=== PATIENT | female | born 1945 | race Caucasian/White ===

== ENCOUNTER 2020-05-13 17:59 | Inpatient (IN) | payer MEDICARE ==
[~2020-05-13] VITALS: Ht 162.6 cm; Wt 73.3 kg
--- NOTE | 2020-05-13 18:02 | NUR ---
Admission Note with Justification for Admission to [facility] Patient admitted to [facility] for protective oversight for emergency stabilization of acute psychiatric crisis. Pt admitted from: [facility] Mode of arrival: Secure Transport Accompanied By: Secure Transport Precipitating behaviors that initiated intake and admission: Yelling at family- agitation, feels like she's being punished. I want to everyday but no specific plan, irritable, spouse of 46 years her and moved the neighbor into the house, self care deficits, lacks initiative, decreased motivation Description of failure of out patient attempts at stabilization in previous setting list behavior and medication trials: ER, buspar, lexapro, sitter Behaviors and assessment findings upon admission: Pt was very pleasant and cooperative with assessment. She is A&Ox4. She expresses disappointment in her for cheating on her. She is also upset about her son and daughter in law for making her go to the hospital because of "an argument over letting the dogs in". Pt denies SI, stating "God will take me when it's time." She denies any physical pain and does not have any wounds. She is unsteady on her feet, requiring assistance, she said it's d/t "laying in bed at the hospital for the past few days." She is currently sitting quietly in the day room. Plan: Admit for protective oversight for adjustment and stabilization of medications, behaviors and mood. Intense treatment regimen including groups, medication adjustments, therapy, consistent regimen for ADL's, self care, and sleep hygiene. Daily monitoring by Inpatient staff, Psychiatry, and Medical Physician.
[2020-05-13 18:04] VITALS: BP 173/74
[2020-05-13] MEDS ORDERED: ACETAMINOPHEN 325 MG TABLET PO PRN (18:15)
[2020-05-13] MEDS ORDERED: METHYL SALICYLATE/MENTHOL TOPICAL OINTMENT 57GM TUBE. TP PRN (18:15)
[2020-05-13] MEDS ORDERED: MAG HYDROX/AL HYDROX/SIMETH 30 ML ORAL.SUSP PO PRN (18:15)
[2020-05-13] MEDS ORDERED: MAGNESIUM HYDROXIDE 2,400 MG/30 ML ORAL.SUSP. PO PRN (18:15)
[2020-05-13] MEDS ORDERED: ATOR40TA59 PO (18:52)
[2020-05-13] MEDS ORDERED: ESCITALOPRAM OX10 MG PO (18:52)
[2020-05-13] MEDS ORDERED: BENA20TA4 PO (18:52)
[2020-05-13] MEDS ORDERED: ZOLP5TAB5 PO (18:52)
[2020-05-13] MEDS ORDERED: LORA-254 PO (18:52)
[2020-05-13] MEDS ORDERED: BUSP10TA PO (18:52)
[2020-05-13] MEDS ORDERED: ASPI81TA59 PO (18:52)
[2020-05-13] MEDS ORDERED: LEVO88TA4 PO (18:52)
[2020-05-13] MEDS ORDERED: ENOX40DI SQ (18:52)
[2020-05-13] MEDS ORDERED: METF-550 PO (18:52)
--- NOTE | 2020-05-13 18:52 | RAD ---
Exam: CT head INDICATION: Altered mental status TECHNIQUE: Sequential axial images through the head were obtained without the administration of IV contrast. Comparisons: None FINDINGS: No focal parenchymal lesion or hemorrhage is identified. There is no midline shift or sulcal effacement. No acute vascular territory infarction is identified. Sheehan-white distinction is preserved. Patchy hypodensity in the periventricular white matter. There is a small lacunar infarct at the right basal ganglia. The ventricular system is within normal limits without compression hydrocephalus. The basal cisterns are well maintained. The visualized portions of the paranasal sinuses and mastoid air cells are well-pneumatized. No acute fractures. IMPRESSION: Small vessel ischemic change and small lacunar infarct at the right basal ganglia both of which are age indeterminate without prior imaging. If there are concerns for acute ischemia MRI would better evaluate. Exposure: One or more of the following in the visualized dose reduction techniques were utilized for this examination: 1. Automated exposure control 2. Adjustment of the MA and/or KV according to patient size Use of iterative of reconstructive technique Electronically signed by: Amirah Rai MD (05/13/2020 6:49 PM) [id number]
[2020-05-13 19:42] LABS: BASO # 0.1 x10^3/uL (0.0-0.2); BASO % 1 % (0-3); EOS # 0.3 x10^3/uL (0.0-0.7); EOS % 3 % (0-3); HEMATOCRIT 40.3 % (36.0-47.0); HEMOGLOBIN 13.4 g/dL (12.0-15.5); LYMPH # 1.2 x10^3/uL (1.0-4.8); LYMPH % 13 % (24-48); MEAN CORPUSCULAR HEMOGLOBIN 31 pg (25-35); MEAN CORPUSCULAR HGB CONC 33 g/dL (31-37); MEAN CORPUSCULAR VOLUME 92 fL (79-100); MONO # 0.4 x10^3/uL (0.0-1.1); MONO % 5 % (0-9); NEUT # 7.1 x10^3uL (1.8-7.7); NEUT % 79 % (31-73); PLATELET COUNT 223 x10^3/uL (140-400); RED BLOOD COUNT 4.39 x10^6/uL (3.50-5.40); RED CELL DISTRIBUTION WIDTH 14.1 % (11.5-14.5); WHITE BLOOD COUNT 9.1 x10^3/uL (4.0-11.0)
[2020-05-13] MEDS ORDERED: LORazepam 1 MG TABLET PO PRN (19:45)
[2020-05-13 19:55] LABS: ALBUMIN 3.2 g/dL (3.4-5.0); ALBUMIN/GLOBULIN RATIO 0.9 (1.0-1.7); CALCIUM 9.1 mg/dL (8.5-10.1); CREATININE 1.6 mg/dL (0.6-1.0); GFR 31.7; MAGNESIUM 1.6 mg/dL (1.8-2.4); POTASSIUM 4.3 mmol/L (3.5-5.1); TOTAL BILIRUBIN 0.3 mg/dL (0.2-1.0); TOTAL PROTEIN 6.7 g/dL (6.4-8.2)
[2020-05-13] MEDS: ATORVASTATIN CALCIUM 20 MG TABLET PO SCH (20:39)
[2020-05-13] MEDS: busPIRone 10 MG TABLET. PO SCH (20:40)
--- NOTE | 2020-05-13 20:58 | NUR ---
Patient has been provided with Practical Counseling for tobacco cessation. It included a face to face interaction and the following was discussed: Recognizing danger situations, Developing coping skills,Basic cessation information. Will follow for discharge needs and discharge planning.
[2020-05-13] MEDS: ZOLPIDEM 5 MG TABLET. PO PRN (22:08)
--- NOTE | 2020-05-13 22:13 | PDOC ---
Exam Note: Jorge Note: Please also refer to the separate dictated note~for this date of service dictated separately.~Patient seen individually. Discussed the patient with Nursing staff reviewed the chart.~Reviewed interim history and current functioning. Reviewed vital signs,~Labs/ Radiology~and current medications noted below. Continue current treatment with the changes noted in the dictated addendum note Assessment: Vital Signs/I&O: Vital Signs Date Time Temp Pulse Resp B/P (MAP) Pulse Ox O2 Delivery O2 Flow Rate FiO2 05/13/20 18:04 97.5 78 18 173/74 (107) 91 Room Air Labs: Laboratory Tests Test 05/13/20 19:30 White Blood Count 9.1 x10^3/uL (4.0-11.0) Red Blood Count 4.39 x10^6/uL (3.50-5.40) Hemoglobin 13.4 g/dL (12.0-15.5) Hematocrit 40.3 % (36.0-47.0) Mean Corpuscular Volume 92 fL (79-100) Mean Corpuscular Hemoglobin 31 pg (25-35) Mean Corpuscular Hemoglobin Concent 33 g/dL (31-37) Red Cell Distribution Width 14.1 % (11.5-14.5) Platelet Count 223 x10^3/uL (140-400) Neutrophils (%) (Auto) 79 % (31-73) H Lymphocytes (%) (Auto) 13 % (24-48) L Monocytes (%) (Auto) 5 % (0-9) Eosinophils (%) (Auto) 3 % (0-3) Basophils (%) (Auto) 1 % (0-3) Neutrophils # (Auto) 7.1 x10^3uL (1.8-7.7) Lymphocytes # (Auto) 1.2 x10^3/uL (1.0-4.8) Monocytes # (Auto) 0.4 x10^3/uL (0.0-1.1) Eosinophils # (Auto) 0.3 x10^3/uL (0.0-0.7) Basophils # (Auto) 0.1 x10^3/uL (0.0-0.2) Sodium Level 141 mmol/L (136-145) Potassium Level 4.3 mmol/L (3.5-5.1) Chloride Level 104 mmol/L (98-107) Carbon Dioxide Level 33 mmol/L (21-32) H Anion Gap 4 (6-14) L Blood Urea Nitrogen 28 mg/dL (7-20) H Creatinine 1.6 mg/dL (0.6-1.0) H Estimated GFR (Cockcroft-Gault) 31.7 BUN/Creatinine Ratio 18 (6-20) Glucose Level 227 mg/dL (70-99) H Calcium Level 9.1 mg/dL (8.5-10.1) Magnesium Level 1.6 mg/dL (1.8-2.4) L Total Bilirubin 0.3 mg/dL (0.2-1.0) Aspartate Amino Transferase (AST) 13 U/L (15-37) L Alanine Aminotransferase (ALT) 18 U/L (14-59) Alkaline Phosphatase 80 U/L (46-116) Total Protein 6.7 g/dL (6.4-8.2) Albumin 3.2 g/dL (3.4-5.0) L Albumin/Globulin Ratio 0.9 (1.0-1.7) L Current Medications: Meds: Current Medications Medications (Trade) Dose Ordered Sig/Celso Route PRN Reason Start Time Stop Time Status Last Admin Dose Admin Atorvastatin Calcium (Lipitor) 40 mg QHS PO 05/13/20 21:00 05/13/20 20:39 Buspirone HCl (Buspar) 10 mg BID PO 05/13/20 21:00 05/13/20 20:40 Zolpidem Tartrate (Ambien) 5 mg PRN QHS PRN PO INSOMNIA 05/13/20 19:45 05/13/20 22:08 I have reviewed the current psychotropics carefully including drug interactions. Risk benefit ratio favors no change other than as noted in my dictated progress note. RAMILA ALAS MD May 13, 2020 22:13
[2020-05-13 22:35] LABS: BILIRUBIN,URINE NEG (NEG); CLARITY,URINE CLEAR; COLOR,URINE YELLOW; GLUCOSE,URINE 100 mg/dL (NEG)
[2020-05-13 22:36] LABS: BACTERIA,URINE 0 /HPF (0-FEW); NITRITE,URINE NEG (NEG); RBC,URINE RARE /HPF (0-2); SQUAMOUS EPITHELIAL CELL,UR OCC /LPF; UROBILINOGEN,URINE 0.2 mg/dL (0.2 mg/dL); WBC,URINE RARE /HPF (0-4)
--- NOTE | 2020-05-13 23:59 | NUR ---
Patient is located in the day room on assumption of care. She is flat, depressed. Compliant with assessments and medications taken whole. This nurse again offered nicotine replacement, patient declined, stating "I'd rather just have a cigarette." Patient requested PRN Ambien "as soon as humanly possible." When this nurse returned with the medication, patient demanded to have her CPAP machine. This nurse explained that we could not provide her with that, that her family would have to bring hers in. She responded, "Well I guess I'll just have to sit up all night then." This nurse offered her PRN O2 as a compromise, and she was agreeable. No agitation. Patient denies any pain. Denies SI. She appears to be sleeping comfortably at present time. Will continue to monitor and report to oncoming staff.
[2020-05-14] MEDS: LEVOTHYROXINE 88 MCG TABLET PO SCH ×2 (04:58→07:30)
[2020-05-14 06:23] VITALS: BP 168/79
[2020-05-14] MEDS ORDERED: LEVOTHYROXINE 88 MCG TABLET PO SCH (07:30)
[2020-05-14] MEDS: busPIRone 10 MG TABLET. PO SCH ×2 (08:08→20:24)
[2020-05-14] MEDS: ASPIRIN CHEWABLE 81 MG TABLET. PO SCH (08:09)
[2020-05-14] MEDS: LISINOPRIL 20 MG TABLET PO SCH (08:09)
[2020-05-14] MEDS: metFORMIN XR 500 MG TAB.ER.24H PO SCH (08:09)
[2020-05-14] MEDS: ENOXAPARIN 40 MG/0.4 ML SYRINGE. SQ SCH ×2 (08:09→09:00)
[2020-05-14] MEDS ORDERED: CITALOPRAM 20 MG TABLET. PO SCH (09:00)
--- NOTE | 2020-05-14 09:48 | NUR ---
Nursing note: Pt in dining room for morning meds and assessment. Pt continues to be depressed with a flat affect. She states "I don't belong here." She was compliant with her meds whole and cooperative with her assessment. Pt denied any pain. Pt refused her lovenox shot because "I've never had to take that before". 0730 synthroid was non-administered d/t it being given at 0458. She is currently laying in her bed. Will continue to monitor.
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
--- NOTE | 2020-05-14 11:30 | NUR ---
ACTIVITY THERAPY ASSESSMENT Completed based on interview with Pt and her Instructor Nurse. Pt. was laying in bed when HAND TUBE BENDER invited her to the group room to meet with both HAND TUBE BENDER and her Instructor Nurse. Pt. expressed that she'd prefer to stay in bed but agreed to join them. She had poor eye contact/ body language throughout interview. She talked about being "bitter" and feeling like she doesn't belong here. She spoke about her son and how he was spending her money and issues about her [id number], she did not want to go back to living with them. HAND TUBE BENDER tried to relate with Pt, sharing she had some family stress as well and Pt. quickly pointed out that HAND TUBE BENDER was not "institutionalized." She was understanding about others but worried about the stigma that came along with her stay here. HAND TUBE BENDER and SW reassured her her feelings were valid and HAND TUBE BENDER encouraged her to take the opportunities and try new things while she is here. She had no interest in doing anything here. At home, she cleaned the house, watched tv ([employer]), enjoys history, and read novels. She shared she had a small group of friends but two have , leaving Pt. and one other. When stress was discussed, Pt. indicated she was a "born again [employer]" in the past. Pt. is withdrawn to room, lacks motivation and overall is depressed. She felt that staff were nice and trying to help but she was overall not interested in doing anything. Initial goal aimed to increase engagement: Pt. will participate in at least three individual Activity Therapy sessions before discharge. Addendum: 05/27/20 at 1110 by LEYDI DIAZ ACT Goal repeated 05/20/20 Goal changed 05/27/20: Pt. will participate in at least one Activity Therapy group per day.
[2020-05-14 13:38] LABS: THYROID STIM HORMONE (TSH) 2.547 uIU/mL (0.358-3.740)
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
--- NOTE | 2020-05-14 14:20 | CONS ---
DATE OF CONSULTATION: 05/14/2020 ATTENDING PHYSICIAN: Dr. Lo. REASON FOR CONSULTATION: We are asked to see this patient for medical consultation. HISTORY OF PRESENT ILLNESS: The patient is a very pleasant 74-year-old female who was recently admitted to [facility] in [place], [place]. She lives in [place]. She has underlying diagnosis of dementia for the last several years. Eight months ago, her her and she was removed from the home. She has been living with her son. She has become quite despondent with suicidal ideations. She has become agitated, depressed, and has had ideations of wanting to kill herself. No attempts just yet. She was evaluated, stabilized and sent here for further treatment regarding her depression. PAST MEDICAL HISTORY: Significant for hypertension, hyperlipidemia and type 2 diabetes, non-insulin dependent. She has short-term memory loss and does not know much details. SOCIAL HISTORY: Marital status: She is . She is an everyday smoker, 1 pack a day, nondrinker. No recreational drug use. PAST SURGICAL HISTORY: Fracture of arm, hysterectomy. CURRENT MEDICATIONS: Prior to coming here included aspirin, Lipitor, Lotensin, BuSpar, Lovenox for prophylaxis, Lexapro, Synthroid, lorazepam, metformin, and Ambien at bedtime. ALLERGIES: She has no known drug allergies. REVIEW OF SYSTEMS: Significant for the suicidal ideation. She is confused. She has a flat affect. All other systems reviewed and turned to be negative. PHYSICAL EXAMINATION: GENERAL: When I saw her, this is a pleasant, but somewhat confused female. INITIAL VITAL SIGNS: Showed a blood pressure of 168/79, pulse is 71 and regular, temperature 97.7 degrees Fahrenheit, oxygen saturation 92% on room air. HEENT: Head is without trauma. Pupils are reactive. Sclerae are nonicteric. Oropharynx is clear. NECK: Supple, no bruits identified. LUNGS: Otherwise clear. CARDIOVASCULAR: Showed regular heart tones. No gallops. Peripheral pulses are palpable and full. ABDOMEN: Soft, scaphoid, nontender, no organomegaly. Bowel sounds are hypoactive. EXTREMITIES: Showed no cyanosis or edema. NEUROLOGIC: Focally intact. Speech is fluent. No deficit, pleasantly confused. PERTINENT LABORATORY STUDIES: Her creatinine is 1.6 mg/dL. I do not know what her baseline is. Her BUN is 28, potassium 4.3 mEq per liter. Nonfasting blood sugar 227 mg/dL. Hemoglobin maintained at 13.4 g/dL with a white count of 9100. ASSESSMENT: 1. This 74-year-old female has underlying depression. 2. Suicidal ideations due to recent social upheavals, her of 46 years filed for divorce 8 months ago. 3. Essential hypertension. 4. Type 2 diabetes mellitus, non-insulin dependent. 5. Chronic kidney disease stage 3. RECOMMENDATIONS: 1. I reviewed her medications. We should continue this as ordered. 2. I do not believe she needs a Lovenox at this time and I have stopped it. She will be ambulatory during the stay. 3. Diabetic diet as tolerated. Thank you again for asking me to see this patient for medical consultation. We shall gladly follow along closely during her inpatient stay. KENIA RUBIN MD DR: MILES/antonia JOB#: [id number] / [id number]
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
[2020-05-14 15:34] VITALS: BP 160/69
[2020-05-14] MEDS: ATORVASTATIN CALCIUM 20 MG TABLET PO SCH (20:24)
--- NOTE | 2020-05-14 22:10 | PDOC ---
Exam Note: Jorge Note: Please also refer to the separate dictated note~for this date of service dictated separately.~Patient seen individually. Discussed the patient with Nursing staff reviewed the chart.~Reviewed interim history and current functioning. Reviewed vital signs,~Labs/ Radiology~and current medications noted below. Continue current treatment with the changes noted in the dictated addendum note Assessment: Vital Signs/I&O: Vital Signs Date Time Temp Pulse Resp B/P (MAP) Pulse Ox O2 Delivery O2 Flow Rate FiO2 05/14/20 15:34 98.1 76 18 160/69 (99) 96 05/14/20 06:23 2.0 05/13/20 18:04 Room Air I & O 0 05/13/20 05/13/20 05/14/20 15:00 23:00 07:00 Intake Total 360 ml 240 ml Balance 360 ml 240 ml Current Medications: Meds: Current Medications Medications (Trade) Dose Ordered Sig/Celso Route PRN Reason Start Time Stop Time Status Last Admin Dose Admin Aspirin (Aspirin Chewable) 81 mg DAILY PO 05/14/20 09:00 05/14/20 08:09 Lisinopril (Prinivil) 20 mg DAILY PO 05/14/20 09:00 05/14/20 08:09 Metformin HCl (Glucophage Xr) 500 mg DAILYWBKFT PO 05/14/20 08:00 05/14/20 08:09 Citalopram Hydrobromide (CeleXA) 20 mg DAILY PO 05/14/20 09:00 05/14/20 17:15 DC 05/14/20 08:09 Levothyroxine Sodium (Synthroid) 88 mcg DAILYAC PO 05/14/20 06:00 05/14/20 04:58 I have reviewed the current psychotropics carefully including drug interactions. Risk benefit ratio favors no change other than as noted in my dictated progress note. Diagnosis: Problems: (1) Major depressive disorder, recurrent episode (2) Anxiety disorder, unspecified (3) Impulse control disorder, unspecified RAMILA ALAS MD May 14, 2020 22:10
--- NOTE | 2020-05-14 23:54 | NUR ---
Pt sitting calmly in dayroom this evening. Pt has flat, depressed affect. Pt denies SI, stating that God will take her when it's her time. Pt states that she does not belong here and will not talk to her son ever again. Compliant with whole medications.
[2020-05-15 02:07] LABS: HEMOGLOBIN A1C 6.3 % (4.8-5.6)
--- NOTE | 2020-05-15 05:26 | NUR ---
Pt's manual BP this morning was 172/82. 0900 dose of Lisinopril administered at this time.
[2020-05-15] MEDS: LISINOPRIL 20 MG TABLET PO SCH (05:28)
[2020-05-15 06:42] VITALS: BP 172/82
[2020-05-15] MEDS: LEVOTHYROXINE 88 MCG TABLET PO SCH (08:46)
[2020-05-15] MEDS: busPIRone 10 MG TABLET. PO SCH ×2 (08:46→20:27)
[2020-05-15] MEDS: metFORMIN XR 500 MG TAB.ER.24H PO SCH (08:46)
[2020-05-15] MEDS: ASPIRIN CHEWABLE 81 MG TABLET. PO SCH (08:46)
[2020-05-15] MEDS: buPROPion XL 150 MG TAB.ER.24H PO SCH (08:47)
--- NOTE | 2020-05-15 10:59 | NUR ---
Pt is calm, cooperative, compliant. No agitation, no aggression, no hallucinations. She is compliant with her medication and assessment.
[2020-05-15 15:58] VITALS: BP 164/76
[2020-05-15] MEDS: ATORVASTATIN CALCIUM 20 MG TABLET PO SCH (20:27)
--- NOTE | 2020-05-15 22:14 | PDOC ---
Exam Note: Jorge Note: Please also refer to the separate dictated note~for this date of service dictated separately.~Patient seen individually. Discussed the patient with Nursing staff reviewed the chart.~Reviewed interim history and current functioning. Reviewed vital signs,~Labs/ Radiology~and current medications noted below. Continue current treatment with the changes noted in the dictated addendum note Assessment: Vital Signs/I&O: Vital Signs Date Time Temp Pulse Resp B/P (MAP) Pulse Ox O2 Delivery O2 Flow Rate FiO2 05/15/20 15:58 97.8 69 16 164/76 (105) 90 05/15/20 06:42 2.0 05/13/20 18:04 Room Air I & O 05/14/20 05/14/20 05/15/20 15:00 23:00 07:00 Intake Total 720 ml 600 ml Balance 720 ml 600 ml Current Medications: Meds: Current Medications Medications (Trade) Dose Ordered Sig/Celso Route PRN Reason Start Time Stop Time Status Last Admin Dose Admin Bupropion HCl (Wellbutrin Xl) 150 mg DAILY PO 05/15/20 09:00 05/15/20 08:47 I have reviewed the current psychotropics carefully including drug interactions. Risk benefit ratio favors no change other than as noted in my dictated progress note. Diagnosis: Problems: (1) Major depressive disorder, recurrent episode (2) Impulse control disorder, unspecified (3) Anxiety disorder, unspecified RAMILA ALAS MD May 15, 2020 22:14
[2020-05-15] MEDS: ZOLPIDEM 5 MG TABLET. PO PRN (22:41)
--- NOTE | 2020-05-15 23:54 | NUR ---
Pt compliant with whole medications. Continues to have flat affect. Denies SI. States she is mad at her son and does not belong here. Upset with staff members not letting her turn the TV volume up louder in the dayroom. Paranoid that staff members are talking about her.
--- NOTE | 2020-05-16 05:08 | NUR ---
Pt's BP this morning was 171/95. 0900 dose of Lisinopril administered at this time.
[2020-05-16] MEDS: LEVOTHYROXINE 88 MCG TABLET PO SCH (05:19)
[2020-05-16] MEDS: LISINOPRIL 20 MG TABLET PO SCH (05:19)
[2020-05-16 06:35] VITALS: BP 171/95
--- NOTE | 2020-05-16 07:12 | PDOC ---
Exam Note: Jorge Note: This note is a late entry for 05/14/2020 covers elements not covered in my initial note. Subjective: The patient was seen individually in the evening of 05/14/2020. Per Adriana PECK, she slept 5-1/4 hours previous night, somewhat withdrawn, anxious, depressed. Review of Systems: No CV, , pulmonary, eye system symptoms on review. Unsteady gait. Mental Status Exam: The patient is reasonably oriented. Speech is coherent, has some latency. Abstraction is fair. Computation is impaired. Language function is intact. Mood and affect withdrawn. She denies suicidal ideation. Laboratory Data: Reviewed. Impression: Major depressive disorder, severe. Anxiety disorder unspecified. Impulse control disorder unspecified. Rest unchanged. Plan: Change Celexa 20 mg a day to Wellbutrin XL 150 mg a day. We may need to increase this gradually. Make further adjustments as clinically indicated. Assessment: Vital Signs/I&O: Vital Signs Date Time Temp Pulse Resp B/P (MAP) Pulse Ox O2 Delivery O2 Flow Rate FiO2 05/16/20 06:35 98.2 67 20 171/95 (120) 92 Room Air 2.0 I & O 05/15/20 05/15/20 05/16/20 15:00 23:00 07:00 Intake Total 960 ml 240 ml Balance 960 ml 240 ml Current Medications: Meds: Current Medications Medications (Trade) Dose Ordered Sig/Celso Route PRN Reason Start Time Stop Time Status Last Admin Dose Admin Bupropion HCl (Wellbutrin Xl) 150 mg DAILY PO 05/15/20 09:00 05/15/20 08:47 I have reviewed the current psychotropics carefully including drug interactions. Risk benefit ratio favors no change other than as noted in my dictated progress note. Diagnosis: Problems: (1) Major depressive disorder, recurrent episode (2) Impulse control disorder, unspecified (3) Anxiety disorder, unspecified RAMILA ALSA MD May 16, 2020 07:12
--- NOTE | 2020-05-16 07:34 | PDOC ---
Exam Note: Jorge Note: This note is a late entry for 05/15/2020 covers elements not covered in my initial note. Subjective: The patient was seen individually in the evening of 05/15/2020. Per Thu PECK, she slept 5-1/2 hours previous night. Previous evening, the patient appeared somewhat sad, withdrawn, but no suicidal ideation. I met with her at length in the evening. She is upset that her son admitted her here. Denies that she threatened suicide at home. I processed this with her at some length individually. Review of Systems: No CV, , pulmonary, eye, ENT system symptoms on review. Unsteady gait. Mental Status Exam: The patient is reasonably oriented. Speech is coherent. Abstraction is fair. Computation is impaired. Language function is intact. Mood and affect still depressed, withdrawn. She minimizes this. No suicidal ideation. Laboratory Data: Reviewed. Impression: Major depressive disorder, recurrent severe. Anxiety disorder unspecified. Impulse control disorder unspecified. Rest unchanged. Plan: Maintain Wellbutrin XL 150 mg a day. We may increase this gradually. Continue BuSpar 10 mg b.i.d., Ativan p.r.n., Ambien h.s. p.r.n. Assessment: Vital Signs/I&O: Vital Signs Date Time Temp Pulse Resp B/P (MAP) Pulse Ox O2 Delivery O2 Flow Rate FiO2 05/16/20 06:35 98.2 67 20 171/95 (120) 92 Room Air 2.0 I & O 05/15/20 05/15/20 05/16/20 15:00 23:00 07:00 Intake Total 960 ml 240 ml Balance 960 ml 240 ml Current Medications: Meds: Current Medications Medications (Trade) Dose Ordered Sig/Celso Route PRN Reason Start Time Stop Time Status Last Admin Dose Admin Bupropion HCl (Wellbutrin Xl) 150 mg DAILY PO 05/15/20 09:00 05/15/20 08:47 I have reviewed the current psychotropics carefully including drug interactions. Risk benefit ratio favors no change other than as noted in my dictated progress note. Diagnosis: Problems: (1) Major depressive disorder, recurrent episode (2) Impulse control disorder, unspecified (3) Anxiety disorder, unspecified RAMILA ALAS MD May 16, 2020 07:34
[2020-05-16] MEDS: buPROPion XL 150 MG TAB.ER.24H PO SCH (09:03)
[2020-05-16] MEDS: ASPIRIN CHEWABLE 81 MG TABLET. PO SCH (09:03)
[2020-05-16] MEDS: busPIRone 10 MG TABLET. PO SCH (09:03)
[2020-05-16] MEDS: metFORMIN XR 500 MG TAB.ER.24H PO SCH (09:03)
--- NOTE | 2020-05-16 10:30 | NUR ---
Pt is calm, cooperative and compliant however she states she has obsessive thoughts regarding her ex cheating on her. She states that the thoughts consume her and often make her tired and not want to get out of bed to do anything. No agitation, no aggression, no hallucinations, no delusions. She is compliant with her medications and assessment.
[2020-05-16 16:31] VITALS: BP 172/72
[2020-05-16] MEDS: ATORVASTATIN CALCIUM 20 MG TABLET PO SCH (20:00)
[2020-05-16] MEDS: traZODone 50 MG TABLET. PO SCH (20:04)
--- NOTE | 2020-05-16 22:19 | PDOC ---
Exam Note: Jorge Note: Please also refer to the separate dictated note~for this date of service dictated separately.~Patient seen individually. Discussed the patient with Nursing staff reviewed the chart.~Reviewed interim history and current functioning. Reviewed vital signs,~Labs/ Radiology~and current medications noted below. Continue current treatment with the changes noted in the dictated addendum note Assessment: Vital Signs/I&O: Vital Signs Date Time Temp Pulse Resp B/P (MAP) Pulse Ox O2 Delivery O2 Flow Rate FiO2 05/16/20 16:31 97.8 68 16 172/72 (105) 94 2.0 05/16/20 06:35 Room Air I & O 05/15/20 05/15/20 05/16/20 14:59 22:59 06:59 Intake Total 960 ml 240 ml Balance 960 ml 240 ml Current Medications: Meds: Current Medications Medications (Trade) Dose Ordered Sig/Celso Route PRN Reason Start Time Stop Time Status Last Admin Dose Admin Trazodone HCl (Desyrel) 50 mg QHS PO 05/16/20 21:00 05/16/20 20:04 I have reviewed the current psychotropics carefully including drug interactions. Risk benefit ratio favors no change other than as noted in my dictated progress note. Diagnosis: Problems: (1) Major depressive disorder, recurrent episode (2) Impulse control disorder, unspecified (3) Anxiety disorder, unspecified RAMILA ALAS MD May 16, 2020 22:19
[2020-05-16] MEDS: traZODone 50 MG TABLET. PO PRN (23:09)
--- NOTE | 2020-05-16 23:54 | NUR ---
Pt upset with staff members again tonight. Pt staff splitting and manipulative. Pt telling one staff member one thing and telling another one something different. Compliant with whole medications. Repeat Trazodone administered at 2315.
[2020-05-17 05:02] VITALS: BP 171/71
--- NOTE | 2020-05-17 05:09 | NUR ---
Pt's BP this morning was 171/71. 0900 dose of Lisinopril administered at this time.
[2020-05-17] MEDS: LEVOTHYROXINE 88 MCG TABLET PO SCH (05:12)
[2020-05-17] MEDS: LISINOPRIL 20 MG TABLET PO SCH (05:12)
[2020-05-17] MEDS: buPROPion XL 150 MG TAB.ER.24H PO SCH (08:18)
[2020-05-17] MEDS: metFORMIN XR 500 MG TAB.ER.24H PO SCH (08:18)
[2020-05-17] MEDS: SERTRALINE 25 MG TABLET. PO SCH (08:18)
[2020-05-17] MEDS: ASPIRIN CHEWABLE 81 MG TABLET. PO SCH (08:18)
--- NOTE | 2020-05-17 09:52 | PDOC ---
Exam Note: Jorge Note: This note is a late entry for 05/16/2020 covers elements not covered in my initial note. Subjective: The patient was seen individually in the evening of 05/16/2020. Per Thu PECK, she slept 6-1/4 hours previous night. She gets quite agitated because of the loud TV, otherwise, isolative. She is repeatedly obsessively questioning me about discharge plans, reasons she was admitted and I addressed this with her. Review of Systems: No CV, , pulmonary, eye, ENT system symptoms on review. Unsteady gait. Mental Status Exam: The patient is reasonably oriented. Speech is coherent. Abstraction is fair. Computation is impaired. Language function is intact. Mood and affect still depressed, withdrawn. She minimizes this. No suicidal ideation. Laboratory Data: Reviewed. Impression: Major depressive disorder, recurrent severe. Anxiety disorder unspecified. Impulse control disorder unspecified. Rest unchanged. Plan: We will go ahead and stop the patients BuSpar since it probably has little efficacy with her symptoms. Start Zoloft 50 mg a day to augment the Wellbutrin XL 150 mg a day. Start trazodone 50 mg h.s. p.r.n., may repeat x1 for insomnia. We will make further adjustments as clinically indicated. Assessment: Vital Signs/I&O: Vital Signs Date Time Temp Pulse Resp B/P (MAP) Pulse Ox O2 Delivery O2 Flow Rate FiO2 05/17/20 05:12 57 171/71 05/17/20 05:02 97.1 18 95 05/16/20 16:31 2.0 05/16/20 06:35 Room Air I & O 05/16/20 05/16/20 05/17/20 15:00 23:00 07:00 Intake Total 960 ml 600 ml Balance 960 ml 600 ml Current Medications: Meds: Current Medications Medications (Trade) Dose Ordered Sig/Celso Route PRN Reason Start Time Stop Time Status Last Admin Dose Admin Sertraline HCl (Zoloft) 50 mg DAILY PO 05/17/20 09:00 05/17/20 08:18 Trazodone HCl (Desyrel) 50 mg QHS PO 05/16/20 21:00 05/16/20 20:04 Trazodone HCl (Desyrel) 50 mg PRN QHS PRN PO INSOMNIA 05/16/20 16:15 05/16/20 23:09 I have reviewed the current psychotropics carefully including drug interactions. Risk benefit ratio favors no change other than as noted in my dictated progress note. Diagnosis: Problems: (1) Major depressive disorder, recurrent episode (2) Impulse control disorder, unspecified (3) Anxiety disorder, unspecified RAMILA ALAS MD May 17, 2020 09:52
[2020-05-17 16:43] VITALS: BP 143/83
--- NOTE | 2020-05-17 18:24 | NUR ---
Patient is alert and oriented. Sarcastic. When PT/OT told her "thank you for working with us" pt responded "Well its not like I had a choice, you would write in my chart that I refused if I didn't work with you". Pt inserts herself into other patients issues. Boundaries set with patient. WCTM.
[2020-05-17] MEDS: ATORVASTATIN CALCIUM 20 MG TABLET PO SCH (20:04)
[2020-05-17] MEDS: traZODone 50 MG TABLET. PO SCH (20:04)
--- NOTE | 2020-05-17 22:17 | PDOC ---
Exam Note: Jorge Note: Please also refer to the separate dictated note~for this date of service dictated separately.~Patient seen individually. Discussed the patient with Nursing staff reviewed the chart.~Reviewed interim history and current functioning. Reviewed vital signs,~Labs/ Radiology~and current medications noted below. Continue current treatment with the changes noted in the dictated addendum note Assessment: Vital Signs/I&O: Vital Signs Date Time Temp Pulse Resp B/P (MAP) Pulse Ox O2 Delivery O2 Flow Rate FiO2 05/17/20 16:43 98.4 65 18 143/83 (103) 91 05/16/20 16:31 2.0 05/16/20 06:35 Room Air I & O 05/16/20 05/16/20 05/17/20 14:59 22:59 06:59 Intake Total 960 ml 600 ml Balance 960 ml 600 ml Current Medications: Meds: Current Medications Medications (Trade) Dose Ordered Sig/Celso Route PRN Reason Start Time Stop Time Status Last Admin Dose Admin Sertraline HCl (Zoloft) 50 mg DAILY PO 05/17/20 09:00 05/17/20 08:18 I have reviewed the current psychotropics carefully including drug interactions. Risk benefit ratio favors no change other than as noted in my dictated progress note. Diagnosis: Problems: (1) Major depressive disorder, recurrent episode (2) Impulse control disorder, unspecified (3) Anxiety disorder, unspecified RAMILA ALAS MD May 17, 2020 22:17
--- NOTE | 2020-05-17 23:31 | NUR ---
Pt upset with staff again this evening. Pt staff splitting and had multiple complaints. Pt intrusive with other patients, asking multiple questions about patients. Stating she does not belong here and is mad at her son. Compliant with whole medications. PRN Tylenol administered per pt request.
[2020-05-18] MEDS: LEVOTHYROXINE 88 MCG TABLET PO SCH (05:26)
[2020-05-18 05:33] VITALS: BP 161/73
[2020-05-18 06:09] LABS: BASO # 0.1 x10^3/uL (0.0-0.2); BASO % 1 % (0-3); EOS # 0.4 x10^3/uL (0.0-0.7); EOS % 5 % (0-3); HEMATOCRIT 36.4 % (36.0-47.0); HEMOGLOBIN 12.1 g/dL (12.0-15.5); LYMPH # 1.9 x10^3/uL (1.0-4.8); LYMPH % 25 % (24-48); MEAN CORPUSCULAR HEMOGLOBIN 30 pg (25-35); MEAN CORPUSCULAR HGB CONC 33 g/dL (31-37); MEAN CORPUSCULAR VOLUME 91 fL (79-100); MONO # 0.6 x10^3/uL (0.0-1.1); MONO % 8 % (0-9); NEUT # 4.7 x10^3uL (1.8-7.7); NEUT % 62 % (31-73); PLATELET COUNT 217 x10^3/uL (140-400); RED BLOOD COUNT 3.99 x10^6/uL (3.50-5.40); RED CELL DISTRIBUTION WIDTH 13.5 % (11.5-14.5); WHITE BLOOD COUNT 7.6 x10^3/uL (4.0-11.0)
[2020-05-18 06:20] LABS: ALBUMIN 2.7 g/dL (3.4-5.0); ALBUMIN/GLOBULIN RATIO 0.9 (1.0-1.7); CALCIUM 8.6 mg/dL (8.5-10.1); CREATININE 1.7 mg/dL (0.6-1.0); GFR 29.5; POTASSIUM 4.1 mmol/L (3.5-5.1); TOTAL BILIRUBIN 0.3 mg/dL (0.2-1.0); TOTAL PROTEIN 5.8 g/dL (6.4-8.2)
--- NOTE | 2020-05-18 07:24 | PDOC ---
Exam Note: Jorge Note: This note is a late entry for 05/17/2020 covers elements not covered in my initial note. Subjective: The patient was seen individually in the evening of 05/17/2020. Per Richard PECK, she slept 8 hours previous night. She complains of difficulty falling asleep, has been calmer. She has been splitting staff per nursing report. She did attend groups. She remains obsessed about being a mistake that her son brought her here because she was never suicidal. I addressed this with her at length. Review of Systems: No CV, , pulmonary, eye, ENT system symptoms on review. Mental Status Exam: The patient is reasonably oriented. Speech is coherent. Abstraction is fair. Computation is impaired. Language function is intact. Short-term memory is poor. Mood and affect still depressed, withdrawn. She minimizes this. No suicidal ideation. Laboratory Data: Reviewed. Impression: Major depressive disorder, recurrent severe. Anxiety disorder unspecified. Impulse control disorder unspecified. Rest unchanged. Plan: No change from initial note. Assessment: Vital Signs/I&O: Vital Signs Date Time Temp Pulse Resp B/P (MAP) Pulse Ox O2 Delivery O2 Flow Rate FiO2 05/18/20 05:33 98.0 55 18 161/73 (102) 95 2.0 05/16/20 06:35 Room Air I & O 05/17/20 05/17/20 05/18/20 15:00 23:00 07:00 Intake Total 360 ml 360 ml 240 ml Balance 360 ml 360 ml 240 ml Labs: Laboratory Tests Test 05/18/20 05:44 White Blood Count 7.6 x10^3/uL (4.0-11.0) Red Blood Count 3.99 x10^6/uL (3.50-5.40) Hemoglobin 12.1 g/dL (12.0-15.5) Hematocrit 36.4 % (36.0-47.0) Mean Corpuscular Volume 91 fL (79-100) Mean Corpuscular Hemoglobin 30 pg (25-35) Mean Corpuscular Hemoglobin Concent 33 g/dL (31-37) Red Cell Distribution Width 13.5 % (11.5-14.5) Platelet Count 217 x10^3/uL (140-400) Neutrophils (%) (Auto) 62 % (31-73) Lymphocytes (%) (Auto) 25 % (24-48) Monocytes (%) (Auto) 8 % (0-9) Eosinophils (%) (Auto) 5 % (0-3) H Basophils (%) (Auto) 1 % (0-3) Neutrophils # (Auto) 4.7 x10^3uL (1.8-7.7) Lymphocytes # (Auto) 1.9 x10^3/uL (1.0-4.8) Monocytes # (Auto) 0.6 x10^3/uL (0.0-1.1) Eosinophils # (Auto) 0.4 x10^3/uL (0.0-0.7) Basophils # (Auto) 0.1 x10^3/uL (0.0-0.2) Sodium Level 141 mmol/L (136-145) Potassium Level 4.1 mmol/L (3.5-5.1) Chloride Level 103 mmol/L (98-107) Carbon Dioxide Level 34 mmol/L (21-32) H Anion Gap 4 (6-14) L Blood Urea Nitrogen 30 mg/dL (7-20) H Creatinine 1.7 mg/dL (0.6-1.0) H Estimated GFR (Cockcroft-Gault) 29.5 BUN/Creatinine Ratio 18 (6-20) Glucose Level 125 mg/dL (70-99) H Calcium Level 8.6 mg/dL (8.5-10.1) Total Bilirubin 0.3 mg/dL (0.2-1.0) Aspartate Amino Transferase (AST) 16 U/L (15-37) Alanine Aminotransferase (ALT) 19 U/L (14-59) Alkaline Phosphatase 70 U/L (46-116) Total Protein 5.8 g/dL (6.4-8.2) L Albumin 2.7 g/dL (3.4-5.0) L Albumin/Globulin Ratio 0.9 (1.0-1.7) L Current Medications: Meds: Current Medications Medications (Trade) Dose Ordered Sig/Celso Route PRN Reason Start Time Stop Time Status Last Admin Dose Admin Sertraline HCl (Zoloft) 50 mg DAILY PO 05/17/20 09:00 05/17/20 08:18 I have reviewed the current psychotropics carefully including drug interactions. Risk benefit ratio favors no change other than as noted in my dictated progress note. Diagnosis: Problems: (1) Major depressive disorder, recurrent episode (2) Impulse control disorder, unspecified (3) Anxiety disorder, unspecified RAMILA ALAS MD May 18, 2020 07:23
[2020-05-18] MEDS: ASPIRIN CHEWABLE 81 MG TABLET. PO SCH (08:16)
[2020-05-18] MEDS: LISINOPRIL 20 MG TABLET PO SCH (08:16)
[2020-05-18] MEDS: metFORMIN XR 500 MG TAB.ER.24H PO SCH (08:17)
[2020-05-18] MEDS: buPROPion XL 150 MG TAB.ER.24H PO SCH (08:17)
[2020-05-18] MEDS: SERTRALINE 25 MG TABLET. PO SCH (08:17)
[2020-05-18 15:36] VITALS: BP 173/78
--- NOTE | 2020-05-18 17:58 | NUR ---
Patient started off the day agitated. Talking with patients before breakfast, wanting to leave. Entered dining room demanding to talk to the warehouse shipping supervisor or charge nurse. Pt was agitated and told to sit down. Pt gritted teeth and said "I want a cup of coffee!" Pt told if she sat then she would get a cup of coffee. Pt became even more agitated, chasing staff down the mejia and attempted to push her way into nursing station. Pt escorted to her room by nurse. Pt states she cannot even remember what she wanted to talk to the warehouse shipping supervisor about and states she was told she couldn't have coffee at all. RN explained to patient that her behavior is not acceptable and that if she calms down then she is more than welcome to come to the dining room to get a cup of coffee and have breakfast. 5 minutes later patient came to dining room and was calm. After lunch patient was requesting to call her ex-. Pt was allowed to call her son, however patient began yelling at son on the phone and the phone was taken from patient. Son states that patient was upset because he wouldn't give her the phone number to the ex-. Later patient requested that RN call the son and tell him that she was sorry, RN did call son and tell him this. RN spoke with patient about appropriate behavior, patient has done better since. VENU.
[2020-05-18] MEDS: ATORVASTATIN CALCIUM 20 MG TABLET PO SCH (20:04)
[2020-05-18] MEDS: traZODone 50 MG TABLET. PO SCH (20:05)
--- NOTE | 2020-05-18 22:06 | PDOC ---
Exam Note: Jorge Note: Please also refer to the separate dictated note~for this date of service dictated separately.~Patient seen individually. Discussed the patient with Nursing staff reviewed the chart.~Reviewed interim history and current functioning. Reviewed vital signs,~Labs/ Radiology~and current medications noted below. Continue current treatment with the changes noted in the dictated addendum note Assessment: Vital Signs/I&O: Vital Signs Date Time Temp Pulse Resp B/P (MAP) Pulse Ox O2 Delivery O2 Flow Rate FiO2 05/18/20 15:36 98.2 67 18 173/78 (109) 90 Room Air 05/18/20 05:33 2.0 I & O 05/17/20 05/17/20 05/18/20 15:00 23:00 07:00 Intake Total 360 ml 360 ml 240 ml Balance 360 ml 360 ml 240 ml Labs: Laboratory Tests Test 05/18/20 05:44 White Blood Count 7.6 x10^3/uL (4.0-11.0) Red Blood Count 3.99 x10^6/uL (3.50-5.40) Hemoglobin 12.1 g/dL (12.0-15.5) Hematocrit 36.4 % (36.0-47.0) Mean Corpuscular Volume 91 fL (79-100) Mean Corpuscular Hemoglobin 30 pg (25-35) Mean Corpuscular Hemoglobin Concent 33 g/dL (31-37) Red Cell Distribution Width 13.5 % (11.5-14.5) Platelet Count 217 x10^3/uL (140-400) Neutrophils (%) (Auto) 62 % (31-73) Lymphocytes (%) (Auto) 25 % (24-48) Monocytes (%) (Auto) 8 % (0-9) Eosinophils (%) (Auto) 5 % (0-3) H Basophils (%) (Auto) 1 % (0-3) Neutrophils # (Auto) 4.7 x10^3uL (1.8-7.7) Lymphocytes # (Auto) 1.9 x10^3/uL (1.0-4.8) Monocytes # (Auto) 0.6 x10^3/uL (0.0-1.1) Eosinophils # (Auto) 0.4 x10^3/uL (0.0-0.7) Basophils # (Auto) 0.1 x10^3/uL (0.0-0.2) Sodium Level 141 mmol/L (136-145) Potassium Level 4.1 mmol/L (3.5-5.1) Chloride Level 103 mmol/L (98-107) Carbon Dioxide Level 34 mmol/L (21-32) H Anion Gap 4 (6-14) L Blood Urea Nitrogen 30 mg/dL (7-20) H Creatinine 1.7 mg/dL (0.6-1.0) H Estimated GFR (Cockcroft-Gault) 29.5 BUN/Creatinine Ratio 18 (6-20) Glucose Level 125 mg/dL (70-99) H Calcium Level 8.6 mg/dL (8.5-10.1) Total Bilirubin 0.3 mg/dL (0.2-1.0) Aspartate Amino Transferase (AST) 16 U/L (15-37) Alanine Aminotransferase (ALT) 19 U/L (14-59) Alkaline Phosphatase 70 U/L (46-116) Total Protein 5.8 g/dL (6.4-8.2) L Albumin 2.7 g/dL (3.4-5.0) L Albumin/Globulin Ratio 0.9 (1.0-1.7) L Current Medications: I have reviewed the current psychotropics carefully including drug interactions. Risk benefit ratio favors no change other than as noted in my dictated progress note. Diagnosis: Problems: (1) Major depressive disorder, recurrent episode (2) Impulse control disorder, unspecified (3) Anxiety disorder, unspecified RAMILA ALAS MD May 18, 2020 22:06
[2020-05-18] MEDS: LORazepam 0.5 MG TABLET PO PRN (22:14)
--- NOTE | 2020-05-18 23:24 | NUR ---
Pt is sitting in dayroom on assessment. Pt is interactive with staff. Pt reports that it has been a hard day, with everyone yelling around her, and when they played a game only a couple people actually knew what was going on. Pt states that she does not belong here and that she feels he son is punishing her. Encouraged pt that we are not her to punish her, but to help with her moods and adjust medications. Pt is tearful, during interaction with this nurse. Pt compliant with medications and assessment. Pt denies SI. Pt requested Ativan, staying she could not sleep and felt restless. Pt given PRN Ativan as ordered.
[2020-05-19 05:20] VITALS: BP 157/73
[2020-05-19] MEDS: LEVOTHYROXINE 88 MCG TABLET PO SCH (05:40)
--- NOTE | 2020-05-19 07:03 | PDOC ---
Exam Note: Jorge Note: This note is a late entry for 05/18/2020 covers elements not covered in my initial note. Subjective: The patient was seen individually in the evening of 05/18/2020. Per Richard PECK, she slept 6-1/4 hours previous night. She was quite agitated in the morning. She had telephone conversation with her son and was yelling at him for putting her in the hospital. She did better in the evening, compliant with medications. She minimizes denies all the problems prompting admission including suicidal ideation. Review of Systems: No CV, , pulmonary, eye, ENT system symptoms on review. Mental Status Exam: The patient is reasonably oriented. Speech is coherent. Abstraction is fair. Computation is impaired. Language function is intact. Short-term memory is poor. Mood and affect still depressed, withdrawn. She minimizes this. No suicidal ideation. Laboratory Data: Reviewed. Impression: Major depressive disorder, recurrent severe. Anxiety disorder unspecified. Impulse control disorder unspecified. Rest unchanged. Plan: No change from initial note. We will continue Zoloft 50 mg a day, Ativan p.r.n., Ambien p.r.n., trazodone p.r.n., and Wellbutrin XL 150 mg in the morning. Adjust further as clinically indicated. Assessment: Vital Signs/I&O: Vital Signs Date Time Temp Pulse Resp B/P (MAP) Pulse Ox O2 Delivery O2 Flow Rate FiO2 05/19/20 05:20 97.2 61 16 157/73 (101) 94 Nasal Cannula 2.0 I & O 05/18/20 05/18/20 05/19/20 15:00 23:00 07:00 Intake Total 840 ml 720 ml Balance 840 ml 720 ml Current Medications: I have reviewed the current psychotropics carefully including drug interactions. Risk benefit ratio favors no change other than as noted in my dictated progress note. Diagnosis: Problems: (1) Major depressive disorder, recurrent episode (2) Impulse control disorder, unspecified (3) Anxiety disorder, unspecified RAMILA ALAS MD May 19, 2020 07:03
[2020-05-19] MEDS: metFORMIN XR 500 MG TAB.ER.24H PO SCH (08:41)
[2020-05-19] MEDS: SERTRALINE 25 MG TABLET. PO SCH (08:41)
[2020-05-19] MEDS: ASPIRIN CHEWABLE 81 MG TABLET. PO SCH (08:41)
[2020-05-19] MEDS: buPROPion XL 150 MG TAB.ER.24H PO SCH (08:41)
[2020-05-19] MEDS: LISINOPRIL 20 MG TABLET PO SCH (08:41)
--- NOTE | 2020-05-19 14:01 | NUR ---
NURSING NOTE PT WAS IN DINING ROOM THIS AM UPON ASSESSMENT AND MEDICATION ADMINISTRATION. PT WAS A&O X4 THIS AM. PT TOOK HER MEDS WHOLE WITH NO COMPLICATIONS. PT PARTICIPATED IN GROUP THIS AM. WHILE WORKING WITH PT/OT, PT OXYGEN SAT WENT DOWN TO 78% WHEN AMBULATING THE HALLWAY, TOOK 4 MIN AT REST TO RECOVER UP TO 90%. WILL NOTIFY DR BILL. PT WAS WORRIED ABOUT OTHERS THIS AM, ASKING OTHERS ABOUT THEIR ABILITY TO SEE/HEAR THE TV ETC. PT C/O SADNESS "HEART PAIN" AND STATES SHE DOES NOT WANT TO BE HERE. WILL CONTINUE TO MONITOR. LIV LOJA.
[2020-05-19] MEDS ORDERED: DEXTROSE 50% 25 GM / 50ML DISP.SYRIN. IV PRN (15:45)
--- NOTE | 2020-05-19 16:27 | NUR ---
NURSING NOTE OXYGEN SPOKE WITH DR BILL, PT CAN USE PRN OXYGEN DAILY 2L NEEDED WHEN OXYGEN FALLS BELOW 90%, WHILE WORKING WITH PT/OT PT OXYGEN WAS 78% AT THE END OF HER WALKING. LIV LOJA.
[2020-05-19 16:46] VITALS: BP 162/71
[2020-05-19] MEDS: INSULIN LISPRO 300 UNITS/3 ML VIAL. SQ SCH (17:00)
--- NOTE | 2020-05-19 17:21 | PN ---
DATE: 05/19/2020 The patient was seen today as the nursing staff concerned that her creatinine is rising and she is also on metformin. She also desaturates while on exertion. She is on 2 liters of oxygen at nighttime; however, when she walks with physical therapy, her oxygen saturation drops down to 78% on room air and it took about 4 minutes for her oxygen saturations to return about 90% at rest. Looking at her medication list, she is on lisinopril 20 mg once a day. She is also on metformin 500 mg once a day. Her hemoglobin A1c is only 6.3%. She is not far away from normal range of 5.6%. Her heart rate was 61, blood pressure was 157/73, temperature 97.2, respiratory rate was 16, and oxygen saturation was 94% on 2 liters of oxygen. My plan is to discontinue lisinopril altogether and start her on amlodipine 10 mg once a day, discontinue metformin and start her on sliding scale insulin before meals and also start her on 4 liters oxygen as needed on exertion. BOOM BILL MD DR: ELIAZAR/antonia JOB#: [id number] / [id number]
[2020-05-19] MEDS: ATORVASTATIN CALCIUM 20 MG TABLET PO SCH (20:12)
[2020-05-19] MEDS: traZODone 50 MG TABLET. PO SCH (20:12)
--- NOTE | 2020-05-19 22:13 | NUR ---
On assessment pt is sitting up in dayroom, watching a movie. Pt is interactive with staff, reports still feeling sad and that she does not belong here. She states that she is really mad at her son and does not wish to go back home with him. Pt is compliant with medications.
--- NOTE | 2020-05-19 22:16 | PDOC ---
Exam Note: Jorge Note: Please also refer to the separate dictated note~for this date of service dictated separately.~Patient seen individually. Discussed the patient with Nursing staff reviewed the chart.~Reviewed interim history and current functioning. Reviewed vital signs,~Labs/ Radiology~and current medications noted below. Continue current treatment with the changes noted in the dictated addendum note Assessment: Vital Signs/I&O: Vital Signs Date Time Temp Pulse Resp B/P (MAP) Pulse Ox O2 Delivery O2 Flow Rate FiO2 05/19/20 16:46 98.7 68 18 162/71 (101) 94 2.0 05/19/20 05:20 Nasal Cannula I & O 05/18/20 05/18/20 05/19/20 15:00 23:00 07:00 Intake Total 840 ml 720 ml Balance 840 ml 720 ml Labs: Laboratory Tests Test 05/19/20 17:12 05/19/20 19:16 Glucose (Fingerstick) 126 mg/dL (70-99) H 144 mg/dL (70-99) H Current Medications: I have reviewed the current psychotropics carefully including drug interactions. Risk benefit ratio favors no change other than as noted in my dictated progress note. Diagnosis: Problems: (1) Major depressive disorder, recurrent episode (2) Impulse control disorder, unspecified (3) Anxiety disorder, unspecified RAMILA ALAS MD May 19, 2020 22:16
[2020-05-20 05:35] VITALS: BP 169/82
[2020-05-20] MEDS: LEVOTHYROXINE 88 MCG TABLET PO SCH (05:44)
--- NOTE | 2020-05-20 07:20 | PDOC ---
Exam Note: Jorge Note: This note is a late entry for 05/19/2020 covers elements not covered in my initial note. Subjective: The patient was seen individually in the evening of 05/19/2020. Per Belia RN, she slept 6 hours previous night. She has not been aggressive, disruptive. O2 sats dropped into the high 70s when she was doing physical therapy. She has been started on oxygen p.r.n. Blood pressure was low. Lisinopril discontinued. Metformin changed to sliding scale insulin due to reduce GFR and she was started on Norvasc per Dr. Gr. Review of Systems: No CV, , pulmonary, eye system symptoms on review. Mental Status Exam: The patient is reasonably oriented. Speech is coherent. Abstraction is fair. Computation is impaired. Language function is intact. Mood and affect has not been aggressive, quite calmer. Laboratory Data: Reviewed. Impression: Major depressive disorder, recurrent severe. Anxiety disorder unspecified. Impulse control disorder unspecified. Rest unchanged. Plan: No change from initial note. Continue Zoloft 50 mg a day, Ambien p.r.n., Wellbutrin XL 150 mg a day. Assessment: Vital Signs/I&O: Vital Signs Date Time Temp Pulse Resp B/P (MAP) Pulse Ox O2 Delivery O2 Flow Rate FiO2 05/20/20 05:35 97.8 57 18 169/82 (111) 95 Room Air 05/19/20 16:46 2.0 I & O 05/19/20 05/19/20 05/20/20 15:00 23:00 07:00 Intake Total 600 ml 360 ml Balance 600 ml 360 ml Labs: Laboratory Tests Test 05/19/20 17:12 05/19/20 19:16 Glucose (Fingerstick) 126 mg/dL (70-99) H 144 mg/dL (70-99) H Current Medications: Meds: Current Medications Medications (Trade) Dose Ordered Sig/Celso Route PRN Reason Start Time Stop Time Status Last Admin Dose Admin Levothyroxine Sodium (Synthroid) 88 mcg DAILY06 PO 05/20/20 06:00 05/20/20 05:44 I have reviewed the current psychotropics carefully including drug interactions. Risk benefit ratio favors no change other than as noted in my dictated progress note. Diagnosis: Problems: (1) Major depressive disorder, recurrent episode (2) Impulse control disorder, unspecified (3) Anxiety disorder, unspecified RAMILA ALAS MD May 20, 2020 07:20
[2020-05-20] MEDS: INSULIN LISPRO 300 UNITS/3 ML VIAL. SQ SCH ×3 (08:00→17:00)
[2020-05-20] MEDS: amLODIPine BESYLATE 10 MG TABLET PO SCH (08:14)
[2020-05-20] MEDS: SERTRALINE 25 MG TABLET. PO SCH (08:14)
[2020-05-20] MEDS: buPROPion XL 150 MG TAB.ER.24H PO SCH (08:14)
[2020-05-20] MEDS: ASPIRIN CHEWABLE 81 MG TABLET. PO SCH (08:14)
--- NOTE | 2020-05-20 08:49 | NUR ---
Patient calm and cooperative with assessment and medications. Patient states her heart is broken being here and the only way for us to fix it is for us to let her go home.
--- NOTE | 2020-05-20 10:32 | NUR ---
WEEKLY ACTIVITY THERAPY NOTE Date of Admission: 05/13/2020 Date of AT Assessment: 05/14/2020 Precipitating behaviors that initiated intake and admission:Yelling at family- agitation, feels like she's being punished. I want to everyday but no specific plan, irritable, spouse of 46 years her and moved the neighbor into the house, self care deficits, lacks initiative, decreased motivation Goal aimed: to increase engagement Initial Goal: Pt. will participate in at least three individual Activity Therapy sessions before discharge. Weekly progress towards goal: achieved, 3/3 this week Group participation level: 3 full Weekly highlights: pleasant in all three groups she attended Behaviors observed: in room besides those three groups, engaged well with no prompting needed when in group Plan: repeat goal Beneficial adaptations: invitation to groups
[2020-05-20 15:50] VITALS: BP 171/70
[2020-05-20] MEDS: ATORVASTATIN CALCIUM 20 MG TABLET PO SCH (20:10)
[2020-05-20] MEDS: traZODone 50 MG TABLET. PO SCH (20:10)
--- NOTE | 2020-05-20 22:05 | PDOC ---
Exam Note: Jorge Note: Please also refer to the separate dictated note~for this date of service dictated separately.~Patient seen individually. Discussed the patient with Nursing staff reviewed the chart.~Reviewed interim history and current functioning. Reviewed vital signs,~Labs/ Radiology~and current medications noted below. Continue current treatment with the changes noted in the dictated addendum note Assessment: Vital Signs/I&O: Vital Signs Date Time Temp Pulse Resp B/P (MAP) Pulse Ox O2 Delivery O2 Flow Rate FiO2 05/20/20 15:50 97.6 104 22 171/70 (103) 90 05/20/20 05:35 Room Air 05/19/20 16:46 2.0 I & O 05/19/20 05/19/20 05/20/20 15:00 23:00 07:00 Intake Total 600 ml 360 ml Balance 600 ml 360 ml Labs: Laboratory Tests Test 05/20/20 07:46 05/20/20 12:01 05/20/20 16:46 05/20/20 19:24 Glucose (Fingerstick) 116 mg/dL (70-99) H 123 mg/dL (70-99) H 168 mg/dL (70-99) H 129 mg/dL (70-99) H Current Medications: Meds: Current Medications Medications (Trade) Dose Ordered Sig/Celso Route PRN Reason Start Time Stop Time Status Last Admin Dose Admin Amlodipine Besylate (Norvasc) 10 mg DAILY PO 05/20/20 09:00 05/20/20 08:14 Levothyroxine Sodium (Synthroid) 88 mcg DAILY06 PO 05/20/20 06:00 05/20/20 05:44 I have reviewed the current psychotropics carefully including drug interactions. Risk benefit ratio favors no change other than as noted in my dictated progress note. Diagnosis: Problems: (1) Major depressive disorder, recurrent episode (2) Impulse control disorder, unspecified (3) Anxiety disorder, unspecified RAMILA ALAS MD May 20, 2020 22:05
[2020-05-20] MEDS: traZODone 50 MG TABLET. PO PRN (23:10)
[2020-05-21 05:15] VITALS: BP 165/68
[2020-05-21] MEDS: LEVOTHYROXINE 88 MCG TABLET PO SCH (06:04)
[2020-05-21] MEDS: INSULIN LISPRO 300 UNITS/3 ML VIAL. SQ SCH ×3 (08:00→17:00)
[2020-05-21] MEDS: buPROPion XL 150 MG TAB.ER.24H PO SCH (09:03)
[2020-05-21] MEDS: ASPIRIN CHEWABLE 81 MG TABLET. PO SCH (09:03)
[2020-05-21] MEDS: SERTRALINE 25 MG TABLET. PO SCH (09:04)
[2020-05-21] MEDS: amLODIPine BESYLATE 10 MG TABLET PO SCH (09:04)
--- NOTE | 2020-05-21 14:52 | NUR ---
Nursing note: Pt in dining room this morning for meds and assessment. She was med compliant and cooperative. Pt states she is still sad and angry at her son, but has been able to socialize with a select group of peers who have been able to keep her spirits up. Her only complaint is the pain from her broken heart. She is currently in her room. Will continue to monitor.
[2020-05-21 16:00] VITALS: BP 148/61
[2020-05-21] MEDS: traZODone 50 MG TABLET. PO SCH (20:27)
[2020-05-21] MEDS: ATORVASTATIN CALCIUM 20 MG TABLET PO SCH (20:28)
[2020-05-21] MEDS: ZOLPIDEM 5 MG TABLET. PO PRN (20:32)
--- NOTE | 2020-05-21 22:15 | PDOC ---
Exam Note: Jorge Note: Please also refer to the separate dictated note~for this date of service dictated separately.~Patient seen individually. Discussed the patient with Nursing staff reviewed the chart.~Reviewed interim history and current functioning. Reviewed vital signs,~Labs/ Radiology~and current medications noted below. Continue current treatment with the changes noted in the dictated addendum note Assessment: Vital Signs/I&O: Vital Signs Date Time Temp Pulse Resp B/P (MAP) Pulse Ox O2 Delivery O2 Flow Rate FiO2 05/21/20 16:00 98.1 68 20 148/61 (90) 95 2.0 05/20/20 05:35 Room Air I & O 05/20/20 05/20/20 05/21/20 15:00 23:00 07:00 Intake Total 720 ml 480 ml Balance 720 ml 480 ml Labs: Laboratory Tests Test 05/21/20 07:41 05/21/20 12:09 05/21/20 16:31 05/21/20 19:12 Glucose (Fingerstick) 103 mg/dL (70-99) H 101 mg/dL (70-99) H 147 mg/dL (70-99) H 213 mg/dL (70-99) H Current Medications: I have reviewed the current psychotropics carefully including drug interactions. Risk benefit ratio favors no change other than as noted in my dictated progress note. Diagnosis: Problems: (1) Major depressive disorder, recurrent episode (2) Impulse control disorder, unspecified (3) Anxiety disorder, unspecified RAMILA ALAS MD May 21, 2020 22:15
--- NOTE | 2020-05-21 23:59 | NUR ---
Patient is located in the day room on assumption of care. She is in pleasant spirits. Social, interactive and appropriate with peers and staff. Compliant with assessments and medications. She requested to have a PRN Ambien with her HS meds, which she received. Shortly afterwards, she requested to have PRN sleep medication. This nurse reminded her that she had already asked for and received that. No agitation. Denies pain or discomfort. Denies SI. Patient appears to be sleeping comfortably at present time. Will continue to monitor.
[2020-05-22] MEDS: LEVOTHYROXINE 88 MCG TABLET PO SCH (05:25)
[2020-05-22 05:35] VITALS: BP 170/70
--- NOTE | 2020-05-22 07:35 | PDOC ---
Exam Note: Jorge Note: This note is a late entry for 05/20/2020 covers elements not covered in my initial note. Subjective: The patient was seen individually in the morning of 05/20/2020 with treatment team meeting with Juan Andino RN (social service staff), [facility] staff. Appetite is 100%. She slept 5 hours previous night. She has been depressed, anxious, somewhat demanding, tearful at times, other times more interactive. Her son Natacha was not available to join the treatment team meeting as planned. I met with her at great length in her room in the evening and discussed with Chandana PECK as well. I gathered further historical information from the family. While living with her son and [id number] she was extremely apathetic, withdrawn and depressed, would sit on the couch and urinate right in the couch area. She has attended 3 groups. She is blaming herself for her having another woman Magen with him in his house but as we processed she was able to see her pathological way she was interpreting this and blaming herself rather than him for what happened and was appreciative of me helping her see at a different way. Review of Systems: No CV, , pulmonary, eye system symptoms on review. Mental Status Exam: The patient is reasonably oriented. Speech is coherent. Abstraction is fair. Computation is impaired. Language function is intact. Mood and affect has not been aggressive, quite calmer. Laboratory Data: Reviewed. Impression: Major depressive disorder, recurrent severe. Anxiety disorder unspecified. Impulse control disorder unspecified. Rest unchanged. Plan: No change from initial note. Jeronimo Florezway 05/20/2020 This note is a late entry for 05/20/2020 covers elements not covered in my initial note. Subjective: The patient was seen individually in the morning of 05/20/2020 with treatment team meeting with Juan Andino RN (social service staff), [facility] staff. The patients Megan attended the lengthy treatment team meeting. He slept 2-3 hours previous night. Appetite is 75%. He remains somewhat manic, delusional, puts himself on the floor. He makes somewhat inappropriate sexual comments to female nursing staff but then redirects. He did attend some groups. 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 On the mini-mental status exam he scored 26/30. He continues to be writing extensive notes every day leaving for me and social service staff and nursing staff. Discussed with Chandana PECK in the evening. The patient remains social butterfly. I also returned a call from Dr. Jackson, patients outpatient psychiatrist and had discussion about the patients diagnoses, change in treatment from lithium to Depakote as a mood stabilizer g iven his creatinine clearance in the low 40s. Dr. Jackson was agreeable to this. Review of Systems: Ambulation impaired with walker. No CV, , pulmonary, eye system symptoms on review. Mental Status Exam: The patient is reasonably oriented. He is quite manic, hyperverbal, distractible. Speech is coherent, rapid at times. Abstraction is fair. Computation impaired. Attention span is short. Language function is intact. Mood and affect remains manic. No suicidal or homicidal ideation. Laboratory Data: Reviewed. Impression: Bipolar disorder, manic with psychotic features. Anxiety disorder unspecified. Impulse control disorder unspecified. Mild cognitive impairment. Plan: No change from initial note. Check valproic acid level on 05/22 and ad just Depakote to reach therapeutic level. Continue Risperdal along with Zyprexa p.r.n., trazodone and melatonin. Assessment: Vital Signs/I&O: Vital Signs Date Time Temp Pulse Resp B/P (MAP) Pulse Ox O2 Delivery O2 Flow Rate FiO2 05/22/20 05:35 98.8 63 18 170/70 (103) 95 Room Air 05/21/20 16:00 2.0 I & O 05/21/20 05/21/20 05/22/20 14:59 22:59 06:59 Intake Total 960 ml 480 ml 240 ml Balance 960 ml 480 ml 240 ml Labs: Laboratory Tests Test 05/21/20 07:41 05/21/20 12:09 05/21/20 16:31 05/21/20 19:12 Glucose (Fingerstick) 103 mg/dL (70-99) H 101 mg/dL (70-99) H 147 mg/dL (70-99) H 213 mg/dL (70-99) H Current Medications: I have reviewed the current psychotropics carefully including drug interactions. Risk benefit ratio favors no change other than as noted in my dictated progress note. Diagnosis: Problems: (1) Major depressive disorder, recurrent episode (2) Impulse control disorder, unspecified (3) Anxiety disorder, unspecified RAMILA ALAS MD May 22, 2020 07:35
--- NOTE | 2020-05-22 08:08 | PDOC ---
Exam Note: Jorge Note: This note is a late entry for 05/21/2020 covers elements not covered in my initial note. Subjective: The patient was seen individually in the evening of 05/21/2020. Per Adriana PECK, she slept 5-1/2 hours previous night. She remains depressed, angry at her son states it hurts her heart that her son treated her the way he did and her treated her the way he did. She has been communicating with other patients. She was withdrawn, isolative in the evening as I met with her. Review of Systems: No CV, , pulmonary, eye system symptoms on review. Mental Status Exam: The patient is reasonably oriented. Speech is coherent. Abstraction is fair. Computation is impaired. Language function is intact. Mood and affect has not been aggressive, quite calmer. Laboratory Data: Reviewed. Impression: Major depressive disorder, recurrent severe. Anxiety disorder unspecified. Impulse control disorder unspecified. Rest unchanged. Plan: No change from initial note. We will continue her Zoloft 50 mg a day, Wellbutrin XL 150 mg a day. May need to increase Wellbutrin. Continue trazodone and Ambien for sleep and Ativan for anxiety. Assessment: Vital Signs/I&O: Vital Signs Date Time Temp Pulse Resp B/P (MAP) Pulse Ox O2 Delivery O2 Flow Rate FiO2 05/22/20 05:35 98.8 63 18 170/70 (103) 95 Room Air 05/21/20 16:00 2.0 I & O 05/21/20 05/21/20 05/22/20 14:59 22:59 06:59 Intake Total 960 ml 480 ml 240 ml Balance 960 ml 480 ml 240 ml Labs: Laboratory Tests Test 05/21/20 12:09 05/21/20 16:31 05/21/20 19:12 05/22/20 07:43 Glucose (Fingerstick) 101 mg/dL (70-99) H 147 mg/dL (70-99) H 213 mg/dL (70-99) H 115 mg/dL (70-99) H Current Medications: I have reviewed the current psychotropics carefully including drug interactions. Risk benefit ratio favors no change other than as noted in my dictated progress note. Diagnosis: Problems: (1) Major depressive disorder, recurrent episode (2) Impulse control disorder, unspecified (3) Anxiety disorder, unspecified BISHOP,MAN M MD May 22, 2020 08:08
[2020-05-22] MEDS: INSULIN LISPRO 300 UNITS/3 ML VIAL. SQ SCH ×3 (08:20→17:31)
[2020-05-22] MEDS: amLODIPine BESYLATE 10 MG TABLET PO SCH (08:22)
[2020-05-22] MEDS: SERTRALINE 25 MG TABLET. PO SCH (08:23)
[2020-05-22] MEDS: ASPIRIN CHEWABLE 81 MG TABLET. PO SCH (08:23)
[2020-05-22] MEDS: buPROPion XL 150 MG TAB.ER.24H PO SCH (08:23)
[2020-05-22 16:46] VITALS: BP 144/69
--- NOTE | 2020-05-22 18:30 | NUR ---
Patient has been calm, compliant, pleasant, and mildly confused throughout this shift. She has been withdrawn to her room for the majority of time between meals. Patient is social with peers at meals and interactions in the dayroom. when asked assessment questions, patient stated that she was in rehab, could not remember the hospital name, and used the dining room board to state the year and day. Will continue to monitor and report to oncoming shift.
[2020-05-22] MEDS: ATORVASTATIN CALCIUM 20 MG TABLET PO SCH (21:08)
[2020-05-22] MEDS: traZODone 50 MG TABLET. PO SCH (21:08)
--- NOTE | 2020-05-22 22:00 | NUR ---
Patient is located in the day room on assumption of care. She is in pleasant spirits. Social, interactive and appropriate with peers and staff. Compliant with assessments and medications. No agitation. Denies pain or discomfort. Denies SI. Patient appears to be sleeping comfortably at present time. Will continue to monitor.
--- NOTE | 2020-05-22 22:27 | PDOC ---
Exam Note: Jorge Note: Please also refer to the separate dictated note~for this date of service dictated separately.~Patient seen individually. Discussed the patient with Nursing staff reviewed the chart.~Reviewed interim history and current functioning. Reviewed vital signs,~Labs/ Radiology~and current medications noted below. Continue current treatment with the changes noted in the dictated addendum note Assessment: Vital Signs/I&O: Vital Signs Date Time Temp Pulse Resp B/P (MAP) Pulse Ox O2 Delivery O2 Flow Rate FiO2 05/22/20 16:46 98.2 69 16 144/69 (94) 92 Room Air 05/21/20 16:00 2.0 I & O 05/21/20 05/21/20 05/22/20 15:00 23:00 07:00 Intake Total 960 ml 480 ml 240 ml Balance 960 ml 480 ml 240 ml Labs: Laboratory Tests Test 05/22/20 07:43 05/22/20 12:19 05/22/20 17:09 05/22/20 19:48 Glucose (Fingerstick) 115 mg/dL (70-99) H 92 mg/dL (70-99) 151 mg/dL (70-99) H 97 mg/dL (70-99) Current Medications: I have reviewed the current psychotropics carefully including drug interactions. Risk benefit ratio favors no change other than as noted in my dictated progress note. Diagnosis: Problems: (1) Major depressive disorder, recurrent episode (2) Impulse control disorder, unspecified (3) Anxiety disorder, unspecified RAMILA ALAS MD May 22, 2020 22:27
[2020-05-23] MEDS: LEVOTHYROXINE 88 MCG TABLET PO SCH (05:07)
[2020-05-23 06:04] VITALS: BP 157/70
--- NOTE | 2020-05-23 07:34 | PDOC ---
Exam Note: Jorge Note: This note is a late entry for 05/22/2020 covers elements not covered in my initial note. Subjective: The patient was seen individually in the evening of 05/22/2020. Per Cristian PECK, she slept 5-3/4 hours previous night. Previous night she was intrusive with others, otherwise, remains withdrawn. She spends much time in her room. I met with her in the evening in the day room. She was quite verbal, interactive, completely denying any problem she had prompting this admission. She has been somewhat more social during mealtimes. Review of Systems: No CV, , pulmonary, eye, ENT, integumentary system symptoms on review. Mental Status Exam: The patient is reasonably oriented. Speech is coherent. Abstraction is fair. Computation is impaired. Language function is intact. Mood remains withdrawn. During the individual visit she had many questions about why she was admitted, the fact that she denied being suicidal, minimizes her symptoms, minimizes being depressed. Affect appears dysphoric; nevertheless, anxious. Laboratory Data: Reviewed. Impression: Major depressive disorder, recurrent severe. Anxiety disorder unspecified. Impulse control disorder unspecified. Rest unchanged. Plan: No change from initial note. Assessment: Vital Signs/I&O: Vital Signs Date Time Temp Pulse Resp B/P (MAP) Pulse Ox O2 Delivery O2 Flow Rate FiO2 05/23/20 06:04 98.6 60 18 157/70 (99) 93 Nasal Cannula 05/21/20 16:00 2.0 I & O 05/22/20 05/22/20 05/23/20 15:00 23:00 07:00 Intake Total 840 ml 240 ml Balance 840 ml 240 ml Labs: Laboratory Tests Test 05/22/20 07:43 05/22/20 12:19 05/22/20 17:09 05/22/20 19:48 Glucose (Fingerstick) 115 mg/dL (70-99) H 92 mg/dL (70-99) 151 mg/dL (70-99) H 97 mg/dL (70-99) Test 05/23/20 07:19 Glucose (Fingerstick) 116 mg/dL (70-99) H Current Medications: I have reviewed the current psychotropics carefully including drug interactions. Risk benefit ratio favors no change other than as noted in my dictated progress note. Diagnosis: Problems: (1) Major depressive disorder, recurrent episode (2) Impulse control disorder, unspecified (3) Anxiety disorder, unspecified RAMILA ALAS MD May 23, 2020 07:34
[2020-05-23] MEDS: INSULIN LISPRO 300 UNITS/3 ML VIAL. SQ SCH ×3 (07:38→17:00)
[2020-05-23] MEDS: ASPIRIN CHEWABLE 81 MG TABLET. PO SCH (08:24)
[2020-05-23] MEDS: SERTRALINE 25 MG TABLET. PO SCH (08:24)
[2020-05-23] MEDS: amLODIPine BESYLATE 10 MG TABLET PO SCH (08:24)
[2020-05-23] MEDS: buPROPion XL 150 MG TAB.ER.24H PO SCH (08:24)
--- NOTE | 2020-05-23 09:49 | NUR ---
Patient calm and cooperative with assessment and medications.
[2020-05-23 15:36] VITALS: BP 185/74
[2020-05-23] MEDS: traZODone 50 MG TABLET. PO SCH (19:55)
[2020-05-23] MEDS: ATORVASTATIN CALCIUM 20 MG TABLET PO SCH (19:56)
--- NOTE | 2020-05-23 22:05 | PDOC ---
Exam Note: Jorge Note: Please also refer to the separate dictated note~for this date of service dictated separately.~Patient seen individually. Discussed the patient with Nursing staff reviewed the chart.~Reviewed interim history and current functioning. Reviewed vital signs,~Labs/ Radiology~and current medications noted below. Continue current treatment with the changes noted in the dictated addendum note Assessment: Vital Signs/I&O: Vital Signs Date Time Temp Pulse Resp B/P (MAP) Pulse Ox O2 Delivery O2 Flow Rate FiO2 05/23/20 15:36 98.0 73 18 185/74 (111) 90 05/23/20 06:04 Nasal Cannula 05/21/20 16:00 2.0 I & O 0 05/22/20 05/22/20 05/23/20 15:00 23:00 07:00 Intake Total 840 ml 240 ml Balance 840 ml 240 ml Labs: Laboratory Tests Test 05/23/20 07:19 05/23/20 11:51 05/23/20 17:12 05/23/20 19:59 Glucose (Fingerstick) 116 mg/dL (70-99) H 141 mg/dL (70-99) H 166 mg/dL (70-99) H 145 mg/dL (70-99) H Current Medications: I have reviewed the current psychotropics carefully including drug interactions. Risk benefit ratio favors no change other than as noted in my dictated progress note. Diagnosis: Problems: (1) Major depressive disorder, recurrent episode (2) Impulse control disorder, unspecified (3) Anxiety disorder, unspecified RAMILA ALAS MD May 23, 2020 22:04
[2020-05-24] MEDS: LEVOTHYROXINE 88 MCG TABLET PO SCH (05:08)
[2020-05-24 06:17] VITALS: BP 163/67
--- NOTE | 2020-05-24 07:45 | PDOC ---
Exam Note: Jorge Note: This note is a late entry for 05/23/2020 covers elements not covered in my initial note. Subjective: The patient was seen individually in the evening of 05/23/2020. Per Chandana PECK, she slept 6-1/4 hours previous night. The patient minimizes most of the problems prompting admission states it is her sons misperception of what she said about suicide. Nevertheless for the review from social service psychosocial history indicates she was unable to take care of her own ADLs, was urinating or sitting on the sofa during the day unmanageable by the family, unable to take care of thus prompting this admission all of which she minimizes and rationalizes as I addressed with her. She had many questions about reasons for admission and I processed this with her on rounds in the evening. Review of Systems: No CV, , pulmonary, eye, ENT, integumentary system symptoms on review. Mental Status Exam: The patient is reasonably oriented. Speech is coherent. Abstraction is fair. Computation is impaired. Language function is intact. Mood remains withdrawn, anxious, dysphoric. Laboratory Data: Reviewed. Impression: Major depressive disorder, recurrent severe. Anxiety disorder unspecified. Impulse control disorder unspecified. Rest unchanged. Plan: No change from initial note. We will continue Zoloft 50 mg a day, tra zodone 50 mg h.s. p.r.n. may repeat x1, Ativan p.r.n., Wellbutrin XL 150 mg a day. Adjust further as clinically indicated. Assessment: Vital Signs/I&O: Vital Signs Date Time Temp Pulse Resp B/P (MAP) Pulse Ox O2 Delivery O2 Flow Rate FiO2 05/24/20 06:17 98.2 59 18 163/67 (99) 93 Nasal Cannula 2.0 I & O 05/23/20 05/23/20 05/24/20 15:00 23:00 07:00 Intake Total 600 ml 480 ml Balance 600 ml 480 ml Labs: Laboratory Tests Test 05/23/20 11:51 05/23/20 17:12 05/23/20 19:59 05/24/20 07:35 Glucose (Fingerstick) 141 mg/dL (70-99) H 166 mg/dL (70-99) H 145 mg/dL (70-99) H 112 mg/dL (70-99) H Current Medications: I have reviewed the current psychotropics carefully including drug interactions. Risk benefit ratio favors no change other than as noted in my dictated progress note. Diagnosis: Problems: (1) Major depressive disorder, recurrent episode (2) Impulse control disorder, unspecified (3) Anxiety disorder, unspecified RAMILA ALAS MD May 24, 2020 07:45
[2020-05-24] MEDS: INSULIN LISPRO 300 UNITS/3 ML VIAL. SQ SCH ×3 (08:00→17:00)
[2020-05-24] MEDS: SERTRALINE 25 MG TABLET. PO SCH (08:46)
[2020-05-24] MEDS: buPROPion XL 150 MG TAB.ER.24H PO SCH (08:46)
[2020-05-24] MEDS: amLODIPine BESYLATE 10 MG TABLET PO SCH (08:47)
[2020-05-24] MEDS: ASPIRIN CHEWABLE 81 MG TABLET. PO SCH (08:47)
[2020-05-24 16:25] VITALS: BP 163/72
--- NOTE | 2020-05-24 18:30 | NUR ---
Patient has been calm, compliant, pleasant, and mildly confused throughout this shift. She has been withdrawn to her room for the majority of time between meals. Patient is social with peers at meals and interactions in the day room. Will continue to monitor and report to oncoming shift.
[2020-05-24] MEDS: traZODone 50 MG TABLET. PO SCH (19:39)
[2020-05-24] MEDS: ATORVASTATIN CALCIUM 20 MG TABLET PO SCH (19:39)
--- NOTE | 2020-05-24 21:41 | NUR ---
Pt withdrawn to room on assessment. Pt reports that she is sad, that her son put her here. Pt does not let she belongs here, and if she talks openly about her depression she will have to stay 3 weeks longer. Encouraged pt to be honest with her feelings so that we could give her the help she need. Sat with pt and talked 20 minutes. Pt tearful, but reports feeling more at ease and that it was nice to have someone to talk to. Pt compliant with medication and assessment.
--- NOTE | 2020-05-24 22:08 | PDOC ---
Exam Note: Jorge Note: Please also refer to the separate dictated note~for this date of service dictated separately.~Patient seen individually. Discussed the patient with Nursing staff reviewed the chart.~Reviewed interim history and current functioning. Reviewed vital signs,~Labs/ Radiology~and current medications noted below. Continue current treatment with the changes noted in the dictated addendum note Assessment: Vital Signs/I&O: Vital Signs Date Time Temp Pulse Resp B/P (MAP) Pulse Ox O2 Delivery O2 Flow Rate FiO2 05/24/20 16:25 97.7 65 18 163/72 (102) 95 05/24/20 06:17 Nasal Cannula 2.0 I & O 05/23/20 05/23/20 05/24/20 15:00 23:00 07:00 Intake Total 600 ml 480 ml Balance 600 ml 480 ml Labs: Laboratory Tests Test 05/24/20 07:35 05/24/20 12:17 05/24/20 17:02 05/24/20 20:24 Glucose (Fingerstick) 112 mg/dL (70-99) H 81 mg/dL (70-99) 79 mg/dL (70-99) 224 mg/dL (70-99) H Current Medications: I have reviewed the current psychotropics carefully including drug interactions. Risk benefit ratio favors no change other than as noted in my dictated progress note. Diagnosis: Problems: (1) Major depressive disorder, recurrent episode (2) Impulse control disorder, unspecified (3) Anxiety disorder, unspecified RAMILA ALAS MD May 24, 2020 22:08
[2020-05-24] MEDS: traZODone 50 MG TABLET. PO PRN (22:28)
[2020-05-25] MEDS: LEVOTHYROXINE 88 MCG TABLET PO SCH (04:59)
[2020-05-25 06:04] VITALS: BP 166/78
[2020-05-25] MEDS: INSULIN LISPRO 300 UNITS/3 ML VIAL. SQ SCH ×3 (08:00→17:00)
[2020-05-25] MEDS: amLODIPine BESYLATE 10 MG TABLET PO SCH (08:37)
[2020-05-25] MEDS: buPROPion XL 150 MG TAB.ER.24H PO SCH (08:38)
[2020-05-25] MEDS: SERTRALINE 25 MG TABLET. PO SCH (08:38)
[2020-05-25] MEDS: ASPIRIN CHEWABLE 81 MG TABLET. PO SCH (08:38)
[2020-05-25 12:04] LABS: BASO # 0.1 x10^3/uL (0.0-0.2); BASO % 1 % (0-3); EOS # 0.3 x10^3/uL (0.0-0.7); EOS % 4 % (0-3); HEMATOCRIT 38.2 % (36.0-47.0); HEMOGLOBIN 12.6 g/dL (12.0-15.5); LYMPH # 1.3 x10^3/uL (1.0-4.8); LYMPH % 15 % (24-48); MEAN CORPUSCULAR HEMOGLOBIN 30 pg (25-35); MEAN CORPUSCULAR HGB CONC 33 g/dL (31-37); MEAN CORPUSCULAR VOLUME 91 fL (79-100); MONO # 0.5 x10^3/uL (0.0-1.1); MONO % 6 % (0-9); NEUT # 6.6 x10^3uL (1.8-7.7); NEUT % 76 % (31-73); PLATELET COUNT 244 x10^3/uL (140-400); RED BLOOD COUNT 4.21 x10^6/uL (3.50-5.40); RED CELL DISTRIBUTION WIDTH 13.3 % (11.5-14.5); WHITE BLOOD COUNT 8.7 x10^3/uL (4.0-11.0)
[2020-05-25 12:05] LABS: ALBUMIN 2.9 g/dL (3.4-5.0); ALBUMIN/GLOBULIN RATIO 0.9 (1.0-1.7); CALCIUM 8.8 mg/dL (8.5-10.1); CREATININE 1.7 mg/dL (0.6-1.0); GFR 29.5; POTASSIUM 4.2 mmol/L (3.5-5.1); TOTAL BILIRUBIN 0.3 mg/dL (0.2-1.0); TOTAL PROTEIN 6.3 g/dL (6.4-8.2)
--- NOTE | 2020-05-25 13:26 | NUR ---
ALOK received a call from pt son, Mykel, who wanted to get an update on how pt is doing. Mykel reports that he has talked to pt a few times and is utterly exhausted when talking to her. Pt attempts to lay a guilt trip on pt son every time, in which SW asked pt son if he would like for pt phone calls to be limited and he reports that he is fine either way. ALOK and Mykel discussed pt being Medicaid pending, which may help in the event that there are some facilities that can take Medicaid pending. Pt son gave ALOK pt Medicaid . Currently pt makes 900 in Social Security and gets a little over 500 in [employer] pay; resulting in roughly $1400 a month. ALOK explained to pt son that most places for AL would be roughly 3k to 3500. With the Medicaid in the works, that can help with payment. Pt son will plan to participate in tx team on .
[2020-05-25 16:14] VITALS: BP 137/74
--- NOTE | 2020-05-25 18:30 | NUR ---
Patient has been depressed, compliant, sullen, and mildly confused throughout this shift. She has been saying throughout the day that 'anyone would be depressed if their was sleeping with another woman'. She is also agitated related to not being able to leave. Will continue to monitor and report to oncoming shift.
[2020-05-25] MEDS: LORazepam 0.5 MG TABLET PO PRN (19:47)
[2020-05-25] MEDS: traZODone 50 MG TABLET. PO SCH (19:47)
[2020-05-25] MEDS: ATORVASTATIN CALCIUM 20 MG TABLET PO SCH (19:47)
--- NOTE | 2020-05-25 21:59 | NUR ---
On assessment pt is crying in the mejia talking with staff. Pt states that she doesn't like the way she was talked to earlier in the day room by another lady. Pt states she wasn't apply to get her a snack when she asked. Attempted to calm pt, explaining that it is shift change and we would gather the snack as soon as we could safely do so. Pt agreed to meet this nurse in her room for medication and a snack. Pt tearful, but compliant with medication and assessment. PRN Ativan given as order with HS medication, after talking with pt. Pt currently sleeping in bed at this time.
--- NOTE | 2020-05-25 22:08 | PDOC ---
Exam Note: Jorge Note: Please also refer to the separate dictated note~for this date of service dictated separately.~Patient seen individually. Discussed the patient with Nursing staff reviewed the chart.~Reviewed interim history and current functioning. Reviewed vital signs,~Labs/ Radiology~and current medications noted below. Continue current treatment with the changes noted in the dictated addendum note Assessment: Vital Signs/I&O: Vital Signs Date Time Temp Pulse Resp B/P (MAP) Pulse Ox O2 Delivery O2 Flow Rate FiO2 05/25/20 16:14 98.1 72 17 137/74 (95) 94 Nasal Cannula 2.5 I & O 05/24/20 05/24/20 05/25/20 15:00 23:00 07:00 Intake Total 600 ml 480 ml Balance 600 ml 480 ml Labs: Laboratory Tests Test 05/25/20 07:19 05/25/20 11:08 05/25/20 11:52 05/25/20 16:57 Glucose (Fingerstick) 120 mg/dL (70-99) H 187 mg/dL (70-99) H 83 mg/dL (70-99) White Blood Count 8.7 x10^3/uL (4.0-11.0) Red Blood Count 4.21 x10^6/uL (3.50-5.40) Hemoglobin 12.6 g/dL (12.0-15.5) Hematocrit 38.2 % (36.0-47.0) Mean Corpuscular Volume 91 fL (79-100) Mean Corpuscular Hemoglobin 30 pg (25-35) Mean Corpuscular Hemoglobin Concent 33 g/dL (31-37) Red Cell Distribution Width 13.3 % (11.5-14.5) Platelet Count 244 x10^3/uL (140-400) Neutrophils (%) (Auto) 76 % (31-73) H Lymphocytes (%) (Auto) 15 % (24-48) L Monocytes (%) (Auto) 6 % (0-9) Eosinophils (%) (Auto) 4 % (0-3) H Basophils (%) (Auto) 1 % (0-3) Neutrophils # (Auto) 6.6 x10^3uL (1.8-7.7) Lymphocytes # (Auto) 1.3 x10^3/uL (1.0-4.8) Monocytes # (Auto) 0.5 x10^3/uL (0.0-1.1) Eosinophils # (Auto) 0.3 x10^3/uL (0.0-0.7) Basophils # (Auto) 0.1 x10^3/uL (0.0-0.2) Sodium Level 138 mmol/L (136-145) Potassium Level 4.2 mmol/L (3.5-5.1) Chloride Level 101 mmol/L (98-107) Carbon Dioxide Level 33 mmol/L (21-32) H Anion Gap 4 (6-14) L Blood Urea Nitrogen 26 mg/dL (7-20) H Creatinine 1.7 mg/dL (0.6-1.0) H Estimated GFR (Cockcroft-Gault) 29.5 BUN/Creatinine Ratio 15 (6-20) Glucose Level 213 mg/dL (70-99) H Calcium Level 8.8 mg/dL (8.5-10.1) Total Bilirubin 0.3 mg/dL (0.2-1.0) Aspartate Amino Transferase (AST) 26 U/L (15-37) Alanine Aminotransferase (ALT) 35 U/L (14-59) Alkaline Phosphatase 83 U/L (46-116) Total Protein 6.3 g/dL (6.4-8.2) L Albumin 2.9 g/dL (3.4-5.0) L Albumin/Globulin Ratio 0.9 (1.0-1.7) L Test 05/25/20 19:10 Glucose (Fingerstick) 151 mg/dL (70-99) H Current Medications: I have reviewed the current psychotropics carefully including drug interactions. Risk benefit ratio favors no change other than as noted in my dictated progress note. Diagnosis: Problems: (1) Major depressive disorder, recurrent episode (2) Impulse control disorder, unspecified (3) Anxiety disorder, unspecified RAMILA ALAS MD May 25, 2020 22:08
[2020-05-26 05:02] VITALS: BP 145/85
[2020-05-26] MEDS: LEVOTHYROXINE 88 MCG TABLET PO SCH (05:18)
--- NOTE | 2020-05-26 07:28 | PDOC ---
Exam Note: Jorge Note: This note is a late entry for 05/24/2020 covers elements not covered in my initial note. Subjective: The patient was seen individually in the evening of 05/24/2020. Per Cristian PECK, she slept 5-3/4 hours previous night. She has been calmer, minimizes being depressed. I reviewed circumstances prompting her admission at length and she professed and minimized most of those symptoms. Review of Systems: No CV, , pulmonary, eye, ENT, integumentary system symptoms on review. Mental Status Exam: The patient is reasonably oriented. Speech is coherent. Abstraction is fair. Computation is impaired. Language function is intact. Mood remains withdrawn, anxious, dysphoric. Laboratory Data: Reviewed. Impression: Major depressive disorder, recurrent severe. Anxiety disorder unspecified. Impulse control disorder unspecified. Rest unchanged. Plan: No change from initial note. Assessment: Vital Signs/I&O: Vital Signs Date Time Temp Pulse Resp B/P (MAP) Pulse Ox O2 Delivery O2 Flow Rate FiO2 05/26/20 05:02 97.7 67 22 145/85 (105) 93 3.0 05/25/20 16:14 Nasal Cannula I & O 05/25/20 05/25/20 05/26/20 15:00 23:00 07:00 Intake Total 480 ml 840 ml Balance 480 ml 840 ml Labs: Laboratory Tests Test 05/25/20 11:08 05/25/20 11:52 05/25/20 16:57 05/25/20 19:10 White Blood Count 8.7 x10^3/uL (4.0-11.0) Red Blood Count 4.21 x10^6/uL (3.50-5.40) Hemoglobin 12.6 g/dL (12.0-15.5) Hematocrit 38.2 % (36.0-47.0) Mean Corpuscular Volume 91 fL (79-100) Mean Corpuscular Hemoglobin 30 pg (25-35) Mean Corpuscular Hemoglobin Concent 33 g/dL (31-37) Red Cell Distribution Width 13.3 % (11.5-14.5) Platelet Count 244 x10^3/uL (140-400) Neutrophils (%) (Auto) 76 % (31-73) H Lymphocytes (%) (Auto) 15 % (24-48) L Monocytes (%) (Auto) 6 % (0-9) Eosinophils (%) (Auto) 4 % (0-3) H Basophils (%) (Auto) 1 % (0-3) Neutrophils # (Auto) 6.6 x10^3uL (1.8-7.7) Lymphocytes # (Auto) 1.3 x10^3/uL (1.0-4.8) Monocytes # (Auto) 0.5 x10^3/uL (0.0-1.1) Eosinophils # (Auto) 0.3 x10^3/uL (0.0-0.7) Basophils # (Auto) 0.1 x10^3/uL (0.0-0.2) Sodium Level 138 mmol/L (136-145) Potassium Level 4.2 mmol/L (3.5-5.1) Chloride Level 101 mmol/L (98-107) Carbon Dioxide Level 33 mmol/L (21-32) H Anion Gap 4 (6-14) L Blood Urea Nitrogen 26 mg/dL (7-20) H Creatinine 1.7 mg/dL (0.6-1.0) H Estimated GFR (Cockcroft-Gault) 29.5 BUN/Creatinine Ratio 15 (6-20) Glucose Level 213 mg/dL (70-99) H Calcium Level 8.8 mg/dL (8.5-10.1) Total Bilirubin 0.3 mg/dL (0.2-1.0) Aspartate Amino Transferase (AST) 26 U/L (15-37) Alanine Aminotransferase (ALT) 35 U/L (14-59) Alkaline Phosphatase 83 U/L (46-116) Total Protein 6.3 g/dL (6.4-8.2) L Albumin 2.9 g/dL (3.4-5.0) L Albumin/Globulin Ratio 0.9 (1.0-1.7) L Glucose (Fingerstick) 187 mg/dL (70-99) H 83 mg/dL (70-99) 151 mg/dL (70-99) H Current Medications: I have reviewed the current psychotropics carefully including drug interactions. Risk benefit ratio favors no change other than as noted in my dictated progress note. Diagnosis: Problems: (1) Major depressive disorder, recurrent episode (2) Impulse control disorder, unspecified (3) Anxiety disorder, unspecified RAMILA ALAS MD May 26, 2020 07:28
[2020-05-26] MEDS: INSULIN LISPRO 300 UNITS/3 ML VIAL. SQ SCH ×3 (08:00→17:00)
--- NOTE | 2020-05-26 08:10 | PDOC ---
Exam Note: Jorge Note: Subjective: The patient was seen individually in the evening of 05/25/2020. Per Cristian PECK, she slept 5 hours previous night. Per nursing report she has been acting sullen for being here, minimizes her behaviors prompting admission, and names family for having her here. She remains quite upset about her taking the neighbor ladkirk into his house and she states she was justified and reacting the way she did and getting depressed. Social service staff are looking for assisted living placement. Review of Systems: No CV, , pulmonary, eye, ENT, integumentary system symptoms on review. Mental Status Exam: The patient is reasonably oriented. Speech is coherent. Abstraction is fair. Computation is impaired. Language function is intact. Mood remains withdrawn, anxious, dysphoric. Laboratory Data: Reviewed. Impression: Major depressive disorder, recurrent severe. Anxiety disorder unspecified. Impulse control disorder unspecified. Rest unchanged. Plan: No change from initial note. Assessment: Vital Signs/I&O: Vital Signs Date Time Temp Pulse Resp B/P (MAP) Pulse Ox O2 Delivery O2 Flow Rate FiO2 05/26/20 05:02 97.7 67 22 145/85 (105) 93 3.0 05/25/20 16:14 Nasal Cannula I & O 05/25/20 05/25/20 05/26/20 15:00 23:00 07:00 Intake Total 480 ml 840 ml Balance 480 ml 840 ml Labs: Laboratory Tests Test 05/25/20 11:08 05/25/20 11:52 05/25/20 16:57 05/25/20 19:10 White Blood Count 8.7 x10^3/uL (4.0-11.0) Red Blood Count 4.21 x10^6/uL (3.50-5.40) Hemoglobin 12.6 g/dL (12.0-15.5) Hematocrit 38.2 % (36.0-47.0) Mean Corpuscular Volume 91 fL (79-100) Mean Corpuscular Hemoglobin 30 pg (25-35) Mean Corpuscular Hemoglobin Concent 33 g/dL (31-37) Red Cell Distribution Width 13.3 % (11.5-14.5) Platelet Count 244 x10^3/uL (140-400) Neutrophils (%) (Auto) 76 % (31-73) H Lymphocytes (%) (Auto) 15 % (24-48) L Monocytes (%) (Auto) 6 % (0-9) Eosinophils (%) (Auto) 4 % (0-3) H Basophils (%) (Auto) 1 % (0-3) Neutrophils # (Auto) 6.6 x10^3uL (1.8-7.7) Lymphocytes # (Auto) 1.3 x10^3/uL (1.0-4.8) Monocytes # (Auto) 0.5 x10^3/uL (0.0-1.1) Eosinophils # (Auto) 0.3 x10^3/uL (0.0-0.7) Basophils # (Auto) 0.1 x10^3/uL (0.0-0.2) Sodium Level 138 mmol/L (136-145) Potassium Level 4.2 mmol/L (3.5-5.1) Chloride Level 101 mmol/L (98-107) Carbon Dioxide Level 33 mmol/L (21-32) H Anion Gap 4 (6-14) L Blood Urea Nitrogen 26 mg/dL (7-20) H Creatinine 1.7 mg/dL (0.6-1.0) H Estimated GFR (Cockcroft-Gault) 29.5 BUN/Creatinine Ratio 15 (6-20) Glucose Level 213 mg/dL (70-99) H Calcium Level 8.8 mg/dL (8.5-10.1) Total Bilirubin 0.3 mg/dL (0.2-1.0) Aspartate Amino Transferase (AST) 26 U/L (15-37) Alanine Aminotransferase (ALT) 35 U/L (14-59) Alkaline Phosphatase 83 U/L (46-116) Total Protein 6.3 g/dL (6.4-8.2) L Albumin 2.9 g/dL (3.4-5.0) L Albumin/Globulin Ratio 0.9 (1.0-1.7) L Glucose (Fingerstick) 187 mg/dL (70-99) H 83 mg/dL (70-99) 151 mg/dL (70-99) H Test 05/26/20 07:30 Glucose (Fingerstick) 106 mg/dL (70-99) H Current Medications: I have reviewed the current psychotropics carefully including drug interactions. Risk benefit ratio favors no change other than as noted in my dictated progress note. Diagnosis: Problems: (1) Major depressive disorder, recurrent episode (2) Impulse control disorder, unspecified (3) Anxiety disorder, unspecified RAMILA ALAS MD May 26, 2020 08:10
[2020-05-26] MEDS: ASPIRIN CHEWABLE 81 MG TABLET. PO SCH (08:16)
[2020-05-26] MEDS: buPROPion XL 150 MG TAB.ER.24H PO SCH (08:16)
[2020-05-26] MEDS: SERTRALINE 25 MG TABLET. PO SCH (08:16)
[2020-05-26] MEDS: amLODIPine BESYLATE 10 MG TABLET PO SCH (08:16)
[2020-05-26 16:07] VITALS: BP 186/79
--- NOTE | 2020-05-26 17:40 | NUR ---
Patient has been depressed, compliant, withdrawn, and mildly confused throughout this shift. She has been withdrawn to her room for the majority of the shift. She is also depressed related to not being able to leave. Will continue to monitor and report to oncoming shift.
[2020-05-26] MEDS: ATORVASTATIN CALCIUM 20 MG TABLET PO SCH (20:52)
[2020-05-26] MEDS: traZODone 50 MG TABLET. PO SCH (20:52)
--- NOTE | 2020-05-26 22:05 | NUR ---
Pt is withdrawn to room on assessment. Pt reports that she has had a hard day, she just keeps thinking of her . Pt is tearful, and states the only pain she has is in her heart from having to be here. Pt is pleasant and grateful of assistance from this RN. Pt is compliant with assessment and medications whole. pt is currently sleeping in bed.
--- NOTE | 2020-05-26 22:56 | PDOC ---
Exam Note: Jorge Note: Please also refer to the separate dictated note~for this date of service dictated separately.~Patient seen individually. Discussed the patient with Nursing staff reviewed the chart.~Reviewed interim history and current functioning. Reviewed vital signs,~Labs/ Radiology~and current medications noted below. Continue current treatment with the changes noted in the dictated addendum note Assessment: Vital Signs/I&O: Vital Signs Date Time Temp Pulse Resp B/P (MAP) Pulse Ox O2 Delivery O2 Flow Rate FiO2 05/26/20 16:07 98.4 74 18 186/79 (114) 92 2.0 05/25/20 16:14 Nasal Cannula I & O 05/25/20 05/25/20 05/26/20 15:00 23:00 07:00 Intake Total 480 ml 840 ml Balance 480 ml 840 ml Labs: Laboratory Tests Test 05/26/20 07:30 05/26/20 12:02 05/26/20 16:59 05/26/20 19:41 Glucose (Fingerstick) 106 mg/dL (70-99) H 198 mg/dL (70-99) H 94 mg/dL (70-99) 155 mg/dL (70-99) H Current Medications: I have reviewed the current psychotropics carefully including drug interactions. Risk benefit ratio favors no change other than as noted in my dictated progress note. Diagnosis: Problems: (1) Major depressive disorder, recurrent episode (2) Impulse control disorder, unspecified (3) Anxiety disorder, unspecified RAMILA ALAS MD May 26, 2020 22:56
[2020-05-27] MEDS: LEVOTHYROXINE 88 MCG TABLET PO SCH (04:49)
[2020-05-27 05:15] VITALS: BP 170/71
[2020-05-27] MEDS: INSULIN LISPRO 300 UNITS/3 ML VIAL. SQ SCH ×3 (08:00→17:00)
[2020-05-27] MEDS: SERTRALINE 25 MG TABLET. PO SCH (08:36)
[2020-05-27] MEDS: amLODIPine BESYLATE 10 MG TABLET PO SCH (08:36)
[2020-05-27] MEDS: buPROPion XL 150 MG TAB.ER.24H PO SCH (08:36)
[2020-05-27] MEDS: ASPIRIN CHEWABLE 81 MG TABLET. PO SCH (08:36)
--- NOTE | 2020-05-27 11:08 | NUR ---
WEEKLY ACTIVITY THERAPY NOTE Date of Admission: 05/13/2020 Date of AT Assessment: 05/14/2020 Precipitating behaviors that initiated intake and admission:Yelling at family- agitation, feels like she's being punished. I want to everyday but no specific plan, irritable, spouse of 46 years her and moved the neighbor into the house, self care deficits, lacks initiative, decreased motivation Goal aimed: to increase engagement Initial Goal: Pt. will participate in at least three individual Activity Therapy sessions before discharge. Weekly progress towards goal: achieved, 3/3 this week Goal repeated 05/20/20 Group participation level: 6 full, 1 mod Weekly highlights: singing in microphone last Sunday Behaviors observed: appropriate and pleasant in all groups and all interactions Plan: Change goal to: Pt. will participate in at least one Activity Therapy group per day. Beneficial adaptations: invitation to groups
[2020-05-27 15:36] VITALS: BP 146/69
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
[2020-05-27] MEDS: traZODone 50 MG TABLET. PO SCH (20:31)
[2020-05-27] MEDS: ATORVASTATIN CALCIUM 20 MG TABLET PO SCH (20:32)
--- NOTE | 2020-05-27 22:05 | PDOC ---
Exam Note: Jorge Note: Please also refer to the separate dictated note~for this date of service dictated separately.~Patient seen individually. Discussed the patient with Nursing staff reviewed the chart.~Reviewed interim history and current functioning. Reviewed vital signs,~Labs/ Radiology~and current medications noted below. Continue current treatment with the changes noted in the dictated addendum note Assessment: Vital Signs/I&O: Vital Signs Date Time Temp Pulse Resp B/P (MAP) Pulse Ox O2 Delivery O2 Flow Rate FiO2 05/27/20 15:36 98.5 70 18 146/69 (94) 94 2.0 05/27/20 05:15 Nasal Cannula I & O 05/26/20 05/26/20 05/27/20 15:00 23:00 07:00 Intake Total 840 ml 360 ml 120 ml Balance 840 ml 360 ml 120 ml Labs: Laboratory Tests Test 05/27/20 07:29 05/27/20 11:28 05/27/20 17:02 05/27/20 19:24 Glucose (Fingerstick) 121 mg/dL (70-99) H 126 mg/dL (70-99) H 145 mg/dL (70-99) H 153 mg/dL (70-99) H Current Medications: I have reviewed the current psychotropics carefully including drug interactions. Risk benefit ratio favors no change other than as noted in my dictated progress note. Diagnosis: Problems: (1) Major depressive disorder, recurrent episode (2) Impulse control disorder, unspecified (3) Anxiety disorder, unspecified RAMILA ALAS MD May 27, 2020 22:05
[2020-05-27] MEDS: traZODone 50 MG TABLET. PO PRN (23:10)
[2020-05-27] MEDS: ZOLPIDEM 5 MG TABLET. PO PRN (23:59)
--- NOTE | 2020-05-28 00:48 | NUR ---
Nursing Note Pt talks at length about her cheating on her. States that she "cannot stop thinking about him fucking another woman" complains that it keeps her up at night. Trazodone given and ambien at for insomnia. States she doesn't belong here, and wants to leave because she is not getting anything out of this program in her opinion. States she just sits and watches tv and sees the doc for 2 seconds. Talked with her at length tonelvia and pt was thankful for me listening.
[2020-05-28] MEDS: LEVOTHYROXINE 88 MCG TABLET PO SCH (05:22)
[2020-05-28 06:15] VITALS: BP 175/73
--- NOTE | 2020-05-28 07:13 | PDOC ---
Exam Note: Jorge Note: This note is a late entry for 05/26/2020 covers elements not covered in my initial note. Subjective: The patient was seen individually in the evening of 05/26/2020. Per Cristian PECK, she slept 8 hours previous night. Previous evening she was agitated over snack time, crying, yelling at staff, labile. She has done reasonably well on 05/26. Affect is improved. Review of Systems: No CV, , pulmonary, eye, ENT system symptoms on review. Mental Status Exam: The patient is reasonably oriented. Speech is coherent. Abstraction is fair. Computation is impaired. Language function is intact. Mood remains less withdrawn, anxious. Affect is improved. Laboratory Data: Reviewed. Impression: Major depressive disorder, recurrent severe. Anxiety disorder unspecified. Impulse control disorder unspecified. Rest unchanged. Plan: The patient remains on Zoloft 50 mg day, Ambien h.s. p.r.n., Ativan p.r.n., trazodone, and Wellbutrin XL. We may need to increase Wellbutrin XL depending on her mood symptoms. Assessment: Vital Signs/I&O: Vital Signs Date Time Temp Pulse Resp B/P (MAP) Pulse Ox O2 Delivery O2 Flow Rate FiO2 05/28/20 06:15 97.6 63 18 175/73 (107) 99 05/27/20 15:36 2.0 05/27/20 05:15 Nasal Cannula I & O 05/27/20 05/27/20 05/28/20 15:00 23:00 07:00 Intake Total 720 ml 480 ml Balance 720 ml 480 ml Labs: Laboratory Tests Test 05/27/20 07:29 05/27/20 11:28 05/27/20 17:02 05/27/20 19:24 Glucose (Fingerstick) 121 mg/dL (70-99) H 126 mg/dL (70-99) H 145 mg/dL (70-99) H 153 mg/dL (70-99) H Current Medications: I have reviewed the current psychotropics carefully including drug interactions. Risk benefit ratio favors no change other than as noted in my dictated progress note. Diagnosis: Problems: (1) Major depressive disorder, recurrent episode (2) Impulse control disorder, unspecified (3) Anxiety disorder, unspecified RAMILA ALAS MD May 28, 2020 07:13
--- NOTE | 2020-05-28 07:39 | PDOC ---
Exam Note: Jorge Note: This note is a late entry for 05/27/2020 covers elements not covered in my initial note. Subjective: The patient was seen individually in the morning of 05/27/2020 with treatment team meeting with Juan (social service staff), [facility] staff, Thu PECK. The patients jena Hogue was to attend but was unavailable for the treatment team meeting. She slept 6 hours previous night. Appetite is 75%. She remains depressed, tearful at times, irritable and anxious. I met with her at length in her room in the evening. She obsesses about discharge plans. I processed with her. Review of Systems: No CV, , pulmonary, eye, ENT system symptoms on review. Mental Status Exam: The patient is reasonably oriented. Speech is coherent. Abstraction is fair. Computation is impaired. Language function is intact. Mood remains withdrawn, depressed. Affect much improved. Laboratory Data: Reviewed. Impression: Major depressive disorder, recurrent severe. Anxiety disorder unspecified. Impulse control disorder unspecified. Rest unchanged. Plan: No change from initial note. We may need to increase the patients Zoloft in due course or Wellbutrin depending on her progress. We will decide in the next 24 hours or so. Assessment: Vital Signs/I&O: Vital Signs Date Time Temp Pulse Resp B/P (MAP) Pulse Ox O2 Delivery O2 Flow Rate FiO2 05/28/20 06:15 97.6 63 18 175/73 (107) 99 05/27/20 15:36 2.0 05/27/20 05:15 Nasal Cannula I & O 05/27/20 05/27/20 05/28/20 15:00 23:00 07:00 Intake Total 720 ml 480 ml Balance 720 ml 480 ml Labs: Laboratory Tests Test 05/27/20 11:28 05/27/20 17:02 05/27/20 19:24 05/28/20 07:26 Glucose (Fingerstick) 126 mg/dL (70-99) H 145 mg/dL (70-99) H 153 mg/dL (70-99) H 114 mg/dL (70-99) H Current Medications: I have reviewed the current psychotropics carefully including drug interactions. Risk benefit ratio favors no change other than as noted in my dictated progress note. Diagnosis: Problems: (1) Major depressive disorder, recurrent episode (2) Impulse control disorder, unspecified (3) Anxiety disorder, unspecified RAMILA ALAS MD May 28, 2020 07:39
[2020-05-28] MEDS: INSULIN LISPRO 300 UNITS/3 ML VIAL. SQ SCH ×3 (07:40→17:00)
[2020-05-28] MEDS: ASPIRIN CHEWABLE 81 MG TABLET. PO SCH (08:28)
[2020-05-28] MEDS: SERTRALINE 25 MG TABLET. PO SCH (08:28)
[2020-05-28] MEDS: buPROPion XL 150 MG TAB.ER.24H PO SCH (08:28)
[2020-05-28] MEDS: amLODIPine BESYLATE 10 MG TABLET PO SCH (08:29)
--- NOTE | 2020-05-28 11:38 | NUR ---
Patient in dining room during iniitla interaction. Pleasant and compliant with medication administration and assessment. Patient stated "my cheated on me and is fucking another woman and I end up here. It's not right." Patient interactive with nurse and other patients. Will continue to monitor.
[2020-05-28 15:39] VITALS: BP 154/72
[2020-05-28] MEDS: traZODone 50 MG TABLET. PO SCH (19:35)
[2020-05-28] MEDS: ATORVASTATIN CALCIUM 20 MG TABLET PO SCH (19:35)
[2020-05-28] MEDS: traZODone 50 MG TABLET. PO PRN (21:27)
[2020-05-28] MEDS: ZOLPIDEM 5 MG TABLET. PO PRN (21:27)
--- NOTE | 2020-05-28 22:00 | PDOC ---
Exam Note: Jorge Note: Please also refer to the separate dictated note~for this date of service dictated separately.~Patient seen individually. Discussed the patient with Nursing staff reviewed the chart.~Reviewed interim history and current functioning. Reviewed vital signs,~Labs/ Radiology~and current medications noted below. Continue current treatment with the changes noted in the dictated addendum note Assessment: Vital Signs/I&O: Vital Signs Date Time Temp Pulse Resp B/P (MAP) Pulse Ox O2 Delivery O2 Flow Rate FiO2 05/28/20 15:39 98.2 67 16 154/72 (99) 97 Room Air 2.0 I & O 05/27/20 05/27/20 05/28/20 15:00 23:00 07:00 Intake Total 720 ml 480 ml Balance 720 ml 480 ml Labs: Laboratory Tests Test 05/28/20 07:26 05/28/20 11:50 05/28/20 17:07 05/28/20 19:33 Glucose (Fingerstick) 114 mg/dL (70-99) H 163 mg/dL (70-99) H 110 mg/dL (70-99) H 283 mg/dL (70-99) H Current Medications: I have reviewed the current psychotropics carefully including drug interactions. Risk benefit ratio favors no change other than as noted in my dictated progress note. Diagnosis: Problems: (1) Major depressive disorder, recurrent episode (2) Impulse control disorder, unspecified (3) Anxiety disorder, unspecified RAMILA ALAS MD May 28, 2020 22:00
[2020-05-29] MEDS: LEVOTHYROXINE 88 MCG TABLET PO SCH (03:45)
[2020-05-29 03:49] VITALS: BP 120/76
[2020-05-29] MEDS: INSULIN LISPRO 300 UNITS/3 ML VIAL. SQ SCH ×3 (08:00→17:00)
[2020-05-29] MEDS: SERTRALINE 25 MG TABLET. PO SCH (08:23)
[2020-05-29] MEDS: buPROPion XL 150 MG TAB.ER.24H PO SCH (08:23)
[2020-05-29] MEDS: amLODIPine BESYLATE 10 MG TABLET PO SCH (08:23)
[2020-05-29] MEDS: ASPIRIN CHEWABLE 81 MG TABLET. PO SCH (08:24)
--- NOTE | 2020-05-29 09:32 | NUR ---
Patient calm and cooperative with assessment and medications.
[2020-05-29 16:11] VITALS: BP 170/72
[2020-05-29] MEDS: traZODone 50 MG TABLET. PO SCH ×3 (20:29→21:22)
[2020-05-29] MEDS: ATORVASTATIN CALCIUM 20 MG TABLET PO SCH (20:29)
[2020-05-29] MEDS: ZOLPIDEM 5 MG TABLET. PO PRN (21:22)
[2020-05-29] MEDS: traZODone 50 MG TABLET. PO PRN (21:23)
--- NOTE | 2020-05-29 22:15 | NUR ---
Nursing Note Pt again talking about her and how he is sleeping with another woman. She states it keeps her up at night and requests both her sleeping pills. Trazodone and ambien given. Now resting in bed.
--- NOTE | 2020-05-29 22:17 | PDOC ---
Exam Note: Jorge Note: Please also refer to the separate dictated note~for this date of service dictated separately.~Patient seen individually. Discussed the patient with Nursing staff reviewed the chart.~Reviewed interim history and current functioning. Reviewed vital signs,~Labs/ Radiology~and current medications noted below. Continue current treatment with the changes noted in the dictated addendum note Assessment: Vital Signs/I&O: Vital Signs Date Time Temp Pulse Resp B/P (MAP) Pulse Ox O2 Delivery O2 Flow Rate FiO2 05/29/20 16:11 99.1 70 18 170/72 (104) 95 05/29/20 03:49 2.0 05/28/20 15:39 Room Air I & O 05/28/20 05/28/20 05/29/20 15:00 23:00 07:00 Intake Total 720 ml 830 ml Balance 720 ml 830 ml Labs: Laboratory Tests Test 05/29/20 08:10 05/29/20 12:10 05/29/20 17:09 05/29/20 19:09 Glucose (Fingerstick) 123 mg/dL (70-99) H 124 mg/dL (70-99) H 109 mg/dL (70-99) H 144 mg/dL (70-99) H Current Medications: I have reviewed the current psychotropics carefully including drug interactions. Risk benefit ratio favors no change other than as noted in my dictated progress note. Diagnosis: Problems: (1) Major depressive disorder, recurrent episode (2) Impulse control disorder, unspecified (3) Anxiety disorder, unspecified RAMILA ALAS MD May 29, 2020 22:17
[2020-05-30] MEDS: LEVOTHYROXINE 88 MCG TABLET PO SCH (05:31)
[2020-05-30 05:47] VITALS: BP 130/79
--- NOTE | 2020-05-30 06:56 | PDOC ---
Exam Note: Jorge Note: This note is a late entry for 05/28/2020 covers elements not covered in my initial note. Subjective: The patient was seen individually in the evening of 05/28/2020. Per Elizabeth PECK, she slept 4-3/4 hours previous night. She is interactive, relating some other patients on the unit. I met with her at some length in her room individually after supper. She remains depressed, withdrawn, minimizes this, stats she has every reason to feel how she does because after 45 years of marriage her went off with another woman and she cannot understand why. She was tearful discussing this but appreciative of the visit. Review of Systems: No CV, , eye, ENT system symptoms on review. Mental Status Exam: Reasonably oriented. Speech is coherent, has some latency. Abstraction is fair. Computation is impaired. Language function is intact. Attention span fair. Mood and affect somewhat withdrawn. Laboratory Data: Reviewed. Impression: Major depressive disorder, recurrent severe. Anxiety disorder unspecified. Impulse control disorder unspecified. Rest unchanged. Plan: No change from initial note. She remains on trazodone for insomnia, Zoloft 50 mg a day, Ambien for insomnia, Ativan for anxiety, Wellbutrin XL 150 mg a day to augment the Zoloft. Assessment: Vital Signs/I&O: Vital Signs Date Time Temp Pulse Resp B/P (MAP) Pulse Ox O2 Delivery O2 Flow Rate FiO2 05/30/20 05:47 98.2 64 16 130/79 (96) 95 05/29/20 03:49 2.0 05/28/20 15:39 Room Air I & O 05/29/20 05/29/20 05/30/20 15:00 23:00 07:00 Intake Total 1080 ml 480 ml Balance 1080 ml 480 ml Labs: Laboratory Tests Test 05/29/20 08:10 05/29/20 12:10 05/29/20 17:09 05/29/20 19:09 Glucose (Fingerstick) 123 mg/dL (70-99) H 124 mg/dL (70-99) H 109 mg/dL (70-99) H 144 mg/dL (70-99) H Current Medications: I have reviewed the current psychotropics carefully including drug interactions. Risk benefit ratio favors no change other than as noted in my dictated progress note. Diagnosis: Problems: (1) Major depressive disorder, recurrent episode (2) Impulse control disorder, unspecified (3) Anxiety disorder, unspecified RAMILA ALAS MD May 30, 2020 06:56
--- NOTE | 2020-05-30 07:20 | PDOC ---
Exam Note: Jorge Note: This note is a late entry for 05/29/2020 covers elements not covered in my initial note. Subjective: The patient was seen individually in the evening of 05/29/2020. Per Chandana PECK, she slept 7-3/4 hours previous night. She has had a good day. Labs were done. She slept better with the combination of trazodone and Ambien. Again I met with her at length in her room after she finished supper. Review of Systems: Positive for some tiredness. Ambulation with walker. No CV, , eye, ENT system symptoms on review. She was using oxygen. Mental Status Exam: Reasonably oriented. Speech is coherent. Abstraction is fair. Computation is impaired. Language function is intact. Attention span short. Mood and affect somewhat withdrawn. No suicidal or homicidal ideation. Laboratory Data: Reviewed. Impression: Major depressive disorder, recurrent severe. Anxiety disorder unspecified. Impulse control disorder unspecified. Plan: No change from initial note. Assessment: Vital Signs/I&O: Vital Signs Date Time Temp Pulse Resp B/P (MAP) Pulse Ox O2 Delivery O2 Flow Rate FiO2 05/30/20 05:47 98.2 64 16 130/79 (96) 95 05/29/20 03:49 2.0 05/28/20 15:39 Room Air I & O 05/29/20 05/29/20 05/30/20 15:00 23:00 07:00 Intake Total 1080 ml 480 ml Balance 1080 ml 480 ml Labs: Laboratory Tests Test 05/29/20 08:10 05/29/20 12:10 05/29/20 17:09 05/29/20 19:09 Glucose (Fingerstick) 123 mg/dL (70-99) H 124 mg/dL (70-99) H 109 mg/dL (70-99) H 144 mg/dL (70-99) H Current Medications: I have reviewed the current psychotropics carefully including drug interactions. Risk benefit ratio favors no change other than as noted in my dictated progress note. Diagnosis: Problems: (1) Major depressive disorder, recurrent episode (2) Impulse control disorder, unspecified (3) Anxiety disorder, unspecified RAMILA ALAS MD May 30, 2020 07:20
[2020-05-30] MEDS: INSULIN LISPRO 300 UNITS/3 ML VIAL. SQ SCH ×3 (08:00→17:00)
[2020-05-30] MEDS: amLODIPine BESYLATE 10 MG TABLET PO SCH (08:23)
[2020-05-30] MEDS: buPROPion XL 150 MG TAB.ER.24H PO SCH (08:23)
[2020-05-30] MEDS: ASPIRIN CHEWABLE 81 MG TABLET. PO SCH (08:23)
[2020-05-30] MEDS: SERTRALINE 25 MG TABLET. PO SCH (08:24)
--- NOTE | 2020-05-30 09:01 | NUR ---
Patient calm and cooperative with assessment and medications.
[2020-05-30 10:22] LABS: BASO # 0.1 x10^3/uL (0.0-0.2); BASO % 1 % (0-3); EOS # 0.3 x10^3/uL (0.0-0.7); EOS % 5 % (0-3); HEMATOCRIT 35.9 % (36.0-47.0); HEMOGLOBIN 12.1 g/dL (12.0-15.5); LYMPH # 1.2 x10^3/uL (1.0-4.8); LYMPH % 19 % (24-48); MEAN CORPUSCULAR HEMOGLOBIN 30 pg (25-35); MEAN CORPUSCULAR HGB CONC 34 g/dL (31-37); MEAN CORPUSCULAR VOLUME 91 fL (79-100); MONO # 0.3 x10^3/uL (0.0-1.1); MONO % 6 % (0-9); NEUT # 4.3 x10^3uL (1.8-7.7); NEUT % 70 % (31-73); PLATELET COUNT 225 x10^3/uL (140-400); RED BLOOD COUNT 3.96 x10^6/uL (3.50-5.40); RED CELL DISTRIBUTION WIDTH 13.5 % (11.5-14.5); WHITE BLOOD COUNT 6.2 x10^3/uL (4.0-11.0)
[2020-05-30 10:31] LABS: ALBUMIN 2.7 g/dL (3.4-5.0); ALBUMIN/GLOBULIN RATIO 0.8 (1.0-1.7); CALCIUM 8.7 mg/dL (8.5-10.1); CREATININE 1.7 mg/dL (0.6-1.0); GFR 29.5; POTASSIUM 4.3 mmol/L (3.5-5.1); TOTAL BILIRUBIN 0.5 mg/dL (0.2-1.0); TOTAL PROTEIN 5.9 g/dL (6.4-8.2)
[2020-05-30 15:44] VITALS: BP 164/68
[2020-05-30] MEDS: ZOLPIDEM 5 MG TABLET. PO PRN (19:48)
[2020-05-30] MEDS: traZODone 50 MG TABLET. PO SCH (19:48)
[2020-05-30] MEDS: ATORVASTATIN CALCIUM 20 MG TABLET PO SCH (19:48)
--- NOTE | 2020-05-30 21:21 | NUR ---
Patient is in her room on assumption of care. She is tearful. When asked what is the matter, she states "My son just told me that someone on staff here told him that I am refusing therapy." This nurse informed her that we don't technically offer "therapy" but we do offer several types of groups throughout the day. She states "I almost always go to the one in the morning. After lunch, I usually take a nap. I didn't realize we had groups in the afternoon." This nurse asked her if she wants to be informed before groups begin so that she can attend, and she states "Yes, absolutely, if that is what I have to do to get out of the mGenerator bin then I will do it." She requested to have a sleeping aid with her HS meds, Ambien given at that time. No agitation. She denies any pain or discomfort. Denies SI. Patient is in her room at present time, laying down in her bed, awake. Will continue to monitor.
--- NOTE | 2020-05-30 22:02 | PDOC ---
Exam Note: Jorge Note: Please also refer to the separate dictated note~for this date of service dictated separately.~Patient seen individually. Discussed the patient with Nursing staff reviewed the chart.~Reviewed interim history and current functioning. Reviewed vital signs,~Labs/ Radiology~and current medications noted below. Continue current treatment with the changes noted in the dictated addendum note Assessment: Vital Signs/I&O: Vital Signs Date Time Temp Pulse Resp B/P (MAP) Pulse Ox O2 Delivery O2 Flow Rate FiO2 05/30/20 15:44 98.5 66 18 164/68 (100) 95 05/29/20 03:49 2.0 05/28/20 15:39 Room Air I & O 05/29/20 05/29/20 05/30/20 15:00 23:00 07:00 Intake Total 1080 ml 480 ml Balance 1080 ml 480 ml Labs: Laboratory Tests Test 05/30/20 08:12 05/30/20 09:30 05/30/20 12:09 05/30/20 17:04 Glucose (Fingerstick) 113 mg/dL (70-99) H 109 mg/dL (70-99) H 94 mg/dL (70-99) White Blood Count 6.2 x10^3/uL (4.0-11.0) Red Blood Count 3.96 x10^6/uL (3.50-5.40) Hemoglobin 12.1 g/dL (12.0-15.5) Hematocrit 35.9 % (36.0-47.0) L Mean Corpuscular Volume 91 fL (79-100) Mean Corpuscular Hemoglobin 30 pg (25-35) Mean Corpuscular Hemoglobin Concent 34 g/dL (31-37) Red Cell Distribution Width 13.5 % (11.5-14.5) Platelet Count 225 x10^3/uL (140-400) Neutrophils (%) (Auto) 70 % (31-73) Lymphocytes (%) (Auto) 19 % (24-48) L Monocytes (%) (Auto) 6 % (0-9) Eosinophils (%) (Auto) 5 % (0-3) H Basophils (%) (Auto) 1 % (0-3) Neutrophils # (Auto) 4.3 x10^3uL (1.8-7.7) Lymphocytes # (Auto) 1.2 x10^3/uL (1.0-4.8) Monocytes # (Auto) 0.3 x10^3/uL (0.0-1.1) Eosinophils # (Auto) 0.3 x10^3/uL (0.0-0.7) Basophils # (Auto) 0.1 x10^3/uL (0.0-0.2) Sodium Level 137 mmol/L (136-145) Potassium Level 4.3 mmol/L (3.5-5.1) Chloride Level 100 mmol/L (98-107) Carbon Dioxide Level 33 mmol/L (21-32) H Anion Gap 4 (6-14) L Blood Urea Nitrogen 23 mg/dL (7-20) H Creatinine 1.7 mg/dL (0.6-1.0) H Estimated GFR (Cockcroft-Gault) 29.5 BUN/Creatinine Ratio 14 (6-20) Glucose Level 238 mg/dL (70-99) H Calcium Level 8.7 mg/dL (8.5-10.1) Total Bilirubin 0.5 mg/dL (0.2-1.0) Aspartate Amino Transferase (AST) 20 U/L (15-37) Alanine Aminotransferase (ALT) 30 U/L (14-59) Alkaline Phosphatase 81 U/L (46-116) Total Protein 5.9 g/dL (6.4-8.2) L Albumin 2.7 g/dL (3.4-5.0) L Albumin/Globulin Ratio 0.8 (1.0-1.7) L Test 05/30/20 19:15 Glucose (Fingerstick) 146 mg/dL (70-99) H Current Medications: I have reviewed the current psychotropics carefully including drug interactions. Risk benefit ratio favors no change other than as noted in my dictated progress note. Diagnosis: Problems: (1) Major depressive disorder, recurrent episode (2) Impulse control disorder, unspecified (3) Anxiety disorder, unspecified RAMILA ALAS MD May 30, 2020 22:02
[2020-05-31] MEDS: traZODone 50 MG TABLET. PO PRN ×2 (00:07→21:20)
[2020-05-31] MEDS: LEVOTHYROXINE 88 MCG TABLET PO SCH (05:14)
[2020-05-31 05:41] VITALS: BP 162/71
[2020-05-31] MEDS: INSULIN LISPRO 300 UNITS/3 ML VIAL. SQ SCH ×3 (08:00→17:21)
[2020-05-31] MEDS: buPROPion XL 150 MG TAB.ER.24H PO SCH (08:29)
[2020-05-31] MEDS: ASPIRIN CHEWABLE 81 MG TABLET. PO SCH (08:29)
[2020-05-31] MEDS: amLODIPine BESYLATE 10 MG TABLET PO SCH (08:29)
[2020-05-31] MEDS: SERTRALINE 25 MG TABLET. PO SCH (08:29)
--- NOTE | 2020-05-31 09:32 | NUR ---
Nursing note: Pt in dining room for morning meds and assessment. She was med compliant and cooperative. Pt continues to have a depressed affect and wishes to go home. She is currently sitting in the day room watching TV. Will continue to monitor.
[2020-05-31 16:15] VITALS: BP 149/80
[2020-05-31] MEDS: ATORVASTATIN CALCIUM 20 MG TABLET PO SCH (21:20)
[2020-05-31] MEDS: traZODone 50 MG TABLET. PO SCH (21:20)
--- NOTE | 2020-05-31 22:00 | PDOC ---
Exam Note: Jorge Note: Please also refer to the separate dictated note~for this date of service dictated separately.~Patient seen individually. Discussed the patient with Nursing staff reviewed the chart.~Reviewed interim history and current functioning. Reviewed vital signs,~Labs/ Radiology~and current medications noted below. Continue current treatment with the changes noted in the dictated addendum note Assessment: Vital Signs/I&O: Vital Signs Date Time Temp Pulse Resp B/P (MAP) Pulse Ox O2 Delivery O2 Flow Rate FiO2 05/31/20 16:15 97.6 63 18 149/80 (103) 92 05/31/20 05:41 2.0 05/28/20 15:39 Room Air I & O 05/30/20 05/30/20 05/31/20 15:00 23:00 07:00 Intake Total 600 ml 480 ml Balance 600 ml 480 ml Labs: Laboratory Tests Test 05/31/20 08:11 05/31/20 12:02 05/31/20 17:16 05/31/20 19:23 Glucose (Fingerstick) 120 mg/dL (70-99) H 108 mg/dL (70-99) H 187 mg/dL (70-99) H 112 mg/dL (70-99) H Current Medications: I have reviewed the current psychotropics carefully including drug interactions. Risk benefit ratio favors no change other than as noted in my dictated progress note. Diagnosis: Problems: (1) Major depressive disorder, recurrent episode (2) Impulse control disorder, unspecified (3) Anxiety disorder, unspecified RAMILA ALAS MD May 31, 2020 22:00
--- NOTE | 2020-05-31 23:51 | NUR ---
Nursing Note The patient was located in the hallway outside her room for her medication and assessment. the patient has been agitated this shift r/t her relationship with her ex-. The patient requested PRN trazodone with her HS medication. The patient is currently sleeping in her room.
[2020-06-01 05:00] VITALS: BP 177/78
[2020-06-01] MEDS: LEVOTHYROXINE 88 MCG TABLET PO SCH (06:00)
[2020-06-01] MEDS: INSULIN LISPRO 300 UNITS/3 ML VIAL. SQ SCH ×3 (08:00→16:52)
--- NOTE | 2020-06-01 08:56 | PDOC ---
Exam Note: Jorge Note: This note is a late entry for 05/30/2020 covers elements not covered in my initial note. Subjective: The patient was seen individually in the evening of 05/30/2020. Per Chandana PECK, she slept 7-1/4 hours previous night. Review of Systems: Ambulation impaired with walker. No CV, , eye, ENT system symptoms on review. Shortness of breath, is on 2L oxygen. Mental Status Exam: Reasonably oriented. Speech is coherent. Abstraction is f air. Computation is impaired. Language function is intact. Attention span short. Mood and affect anxious, obsessed. I met with her at length in her room. She is tearful, sad, obsessing about the break-up of her marriage after so many years. We addressed this at great length and she was able to take some of the guilt off her back and place it where it should belong with her . She is totally unsupported. We addressed this at length and she was better at the end of the visit. Laboratory Data: Reviewed. Impression: Major depressive disorder, recurrent severe. Anxiety disorder unspecified. Impulse control disorder unspecified. Plan: No change from initial note. She did receive Ambien and trazodone at night and had slept better with this. Assessment: Vital Signs/I&O: Vital Signs Date Time Temp Pulse Resp B/P (MAP) Pulse Ox O2 Delivery O2 Flow Rate FiO2 06/01/20 08:26 98.4 05/31/20 16:15 63 18 149/80 (103) 92 05/31/20 05:41 2.0 05/28/20 15:39 Room Air I & O 05/31/20 05/31/20 06/01/20 15:00 23:00 07:00 Intake Total 240 ml 600 ml Balance 240 ml 600 ml Labs: Laboratory Tests Test 05/31/20 12:02 05/31/20 17:16 05/31/20 19:23 Glucose (Fingerstick) 108 mg/dL (70-99) H 187 mg/dL (70-99) H 112 mg/dL (70-99) H Current Medications: I have reviewed the current psychotropics carefully including drug interactions. Risk benefit ratio favors no change other than as noted in my dictated progress note. Diagnosis: Problems: (1) Major depressive disorder, recurrent episode (2) Impulse control disorder, unspecified (3) Anxiety disorder, unspecified RAMILA ALAS MD Jun 01, 2020 08:56
--- NOTE | 2020-06-01 09:14 | PDOC ---
Exam Note: Jorge Note: This note is a late entry for 05/31/2020 covers elements not covered in my initial note. Subjective: The patient was seen individually in the evening of 05/31/2020. Per Adriana PECK, she slept 7 hours previous night. She is somewhat depressed, tearful. I met with her in her room once again. She was irritable in the evening with one of the other demented patients who walked into her room and she was quite upset asking the nursing staff she will do whatever needs to be done to get out of this loony bin. I processed this with her at length in the evening. She was more insightful with the treatment here, helping her find some balance with significant psychosocial upheaval she has had in her life. Review of Systems: Ambulation with walker. No CV, , eye, ENT system symptoms on review. Shortness of breath on O2 supplements. Mental Status Exam: Reasonably oriented. Speech is coherent. Abstraction is fair. Computation is impaired. Language function is intact. Attention span short. Mood and affect somewhat depressed, withdrawn. No suicidal or homicidal ideation. Laboratory Data: Reviewed. Impression: Major depressive disorder, recurrent severe. Anxiety disorder unspecified. Impulse control disorder unspecified. Plan: The patient remains depressed. We will increase Wellbutrin XL from 150 mg in the morning to 300 mg in the morning. Continue rest unchanged. Assessment: Vital Signs/I&O: Vital Signs Date Time Temp Pulse Resp B/P (MAP) Pulse Ox O2 Delivery O2 Flow Rate FiO2 06/01/20 08:26 98.4 05/31/20 16:15 63 18 149/80 (103) 92 05/31/20 05:41 2.0 05/28/20 15:39 Room Air I & O 05/31/20 05/31/20 06/01/20 15:00 23:00 07:00 Intake Total 240 ml 600 ml Balance 240 ml 600 ml Labs: Laboratory Tests Test 05/31/20 12:02 05/31/20 17:16 05/31/20 19:23 Glucose (Fingerstick) 108 mg/dL (70-99) H 187 mg/dL (70-99) H 112 mg/dL (70-99) H Current Medications: I have reviewed the current psychotropics carefully including drug interactions. Risk benefit ratio favors no change other than as noted in my dictated progress note. Diagnosis: Problems: (1) Major depressive disorder, recurrent episode (2) Impulse control disorder, unspecified (3) Anxiety disorder, unspecified RAMILA ALAS MD Jun 01, 2020 09:14
[2020-06-01] MEDS: buPROPion XL 300 MG TAB.ER.24H. PO SCH (09:24)
[2020-06-01] MEDS: amLODIPine BESYLATE 10 MG TABLET PO SCH (09:24)
[2020-06-01] MEDS: SERTRALINE 25 MG TABLET. PO SCH (09:24)
[2020-06-01] MEDS: ASPIRIN CHEWABLE 81 MG TABLET. PO SCH (09:24)
--- NOTE | 2020-06-01 09:45 | NUR ---
0600 Synthroid given by [facility] staff while [employer] was down.
--- NOTE | 2020-06-01 10:42 | NUR ---
Nursing note: Pt sleeping in bed when approached with morning meds and assessment. She was easily aroused and was pleasant, med compliant, and cooperative. Pt continues to be sleeping in her room at this time. Will continue to monitor.
[2020-06-01 15:19] VITALS: BP 158/67
--- NOTE | 2020-06-01 16:05 | NUR ---
[facility] left a message of pt son, Mykel, to contact [facility]. [facility] will need to notify Mykel that per the [facility], there will be no admissions in and no discharges out. All staff and all residents will be tested as well. [facility] will continue to send both parties updates and once the 2 week lift occurs, [facility] will notify all involved parties that discharges are permissible and make plans at that time. Pt has a pending admission to [facility].
[2020-06-01] MEDS: traZODone 50 MG TABLET. PO SCH (20:50)
[2020-06-01] MEDS: traZODone 50 MG TABLET. PO PRN (20:50)
[2020-06-01] MEDS: ATORVASTATIN CALCIUM 20 MG TABLET PO SCH (20:50)
--- NOTE | 2020-06-01 21:59 | PDOC ---
Exam Note: Jorge Note: Please also refer to the separate dictated note~for this date of service dictated separately.~Patient seen individually. Discussed the patient with Nursing staff reviewed the chart.~Reviewed interim history and current functioning. Reviewed vital signs,~Labs/ Radiology~and current medications noted below. Continue current treatment with the changes noted in the dictated addendum note Assessment: Vital Signs/I&O: Vital Signs Date Time Temp Pulse Resp B/P (MAP) Pulse Ox O2 Delivery O2 Flow Rate FiO2 06/01/20 20:43 98.2 92 06/01/20 15:19 70 16 158/67 (97) 2.0 05/28/20 15:39 Room Air I & O 0 05/31/20 05/31/20 06/01/20 15:00 23:00 07:00 Intake Total 240 ml 600 ml Balance 240 ml 600 ml Current Medications: Meds: Current Medications Medications (Trade) Dose Ordered Sig/Celso Route PRN Reason Start Time Stop Time Status Last Admin Dose Admin Bupropion HCl (Wellbutrin Xl) 300 mg DAILY PO 06/01/20 09:00 06/01/20 09:24 I have reviewed the current psychotropics carefully including drug interactions. Risk benefit ratio favors no change other than as noted in my dictated progress note. Diagnosis: Problems: (1) Major depressive disorder, recurrent episode (2) Impulse control disorder, unspecified (3) Anxiety disorder, unspecified RAMILA ALAS MD Jun 01, 2020 21:59
[2020-06-01] MEDS: ZOLPIDEM 5 MG TABLET. PO PRN (22:29)
--- NOTE | 2020-06-02 00:29 | NUR ---
Nursing Note The patient was located in her room for her assessment and medication pass. The patient requested PRN [email or web address]@[facility] and later requested PRN Ambien. The patient is currently sleeping in her room.
[2020-06-02] MEDS: LEVOTHYROXINE 88 MCG TABLET PO SCH (05:37)
[2020-06-02 06:07] VITALS: BP 158/72
--- NOTE | 2020-06-02 07:39 | PDOC ---
Exam Note: Jorge Note: This note is a late entry for 06/01/2020 covers elements not covered in my initial note. Subjective: The patient was seen on telehealth rounds in the evening of 06/01/2020 with Sharif RN and Dunia RN. COVID-19 screen has been done on all patients and staff members since one patient has turned up positive for COVID-19 on the unit today. The unit is on lockdown per the [facility] ([facility])/Centers for Disease Control (CDC) due to the COVID positive patient on our unit, which was discovered. All patients are back in their rooms and are not using main dining room either to avoid group activities and exposure. Per Adriana PECK, she slept 6-1/2 hours previous night. The patient remains somewhat depressed, withdrawn regarding her having brought another woman into the house. She did call and spoke to her son today. Review of Systems: Ambulation with walker. No CV, , eye, ENT system symptoms on review. Shortness of breath on O2 supplements. Mental Status Exam: Reasonably oriented. Speech is coherent. Abstraction is fair. Computation is impaired. Language function is intact. Attention span short. Mood and affect somewhat depressed, withdrawn. No suicidal or homicidal ideation. Laboratory Data: Reviewed. Impression: Major depressive disorder, recurrent severe. Anxiety disorder unspecified. Impulse control disorder unspecified. Plan: Continue rest psychotropics unchanged from initial note. Assessment: Vital Signs/I&O: Vital Signs Date Time Temp Pulse Resp B/P (MAP) Pulse Ox O2 Delivery O2 Flow Rate FiO2 06/02/20 06:07 98.0 66 20 158/72 (100) 92 2.0 05/28/20 15:39 Room Air I & O 06/01/20 06/01/20 06/02/20 15:00 23:00 07:00 Intake Total 600 ml 600 ml Balance 600 ml 600 ml Current Medications: Meds: Current Medications Medications (Trade) Dose Ordered Sig/Celso Route PRN Reason Start Time Stop Time Status Last Admin Dose Admin Bupropion HCl (Wellbutrin Xl) 300 mg DAILY PO 06/01/20 09:00 06/01/20 09:24 I have reviewed the current psychotropics carefully including drug interactions. Risk benefit ratio favors no change other than as noted in my dictated progress note. Diagnosis: Problems: (1) Major depressive disorder, recurrent episode (2) Impulse control disorder, unspecified (3) Anxiety disorder, unspecified RAMILA ALAS MD Jun 02, 2020 07:39
[2020-06-02] MEDS: INSULIN LISPRO 300 UNITS/3 ML VIAL. SQ SCH ×3 (08:00→17:00)
[2020-06-02] MEDS: buPROPion XL 300 MG TAB.ER.24H. PO SCH (08:15)
[2020-06-02] MEDS: ASPIRIN CHEWABLE 81 MG TABLET. PO SCH (08:15)
[2020-06-02] MEDS: amLODIPine BESYLATE 10 MG TABLET PO SCH (08:15)
[2020-06-02] MEDS: SERTRALINE 25 MG TABLET. PO SCH (08:15)
--- NOTE | 2020-06-02 09:44 | NUR ---
Nursing note: Pt in her room for morning meds and assessment. She was pleasant, med compliant, and cooperative. She continues to be depressed and wants to go home. Pt has been reeducated on the importance of the 2 week quarantine period, but appears to be so fixated on going home, that she is unable to understand. She is currently laying in her bed. Will continue to monitor.
--- NOTE | 2020-06-02 15:25 | NUR ---
COVID swab complete and sent to lab.
[2020-06-02 15:33] VITALS: BP 160/75
--- NOTE | 2020-06-02 21:23 | NUR ---
ALOK attempted to contact Mykel re: pt test. ALOK left a message informing Mykel that SW will try back in a few.
[2020-06-02] MEDS: ZOLPIDEM 5 MG TABLET. PO PRN (21:46)
[2020-06-02] MEDS: traZODone 50 MG TABLET. PO SCH (21:46)
[2020-06-02] MEDS: ATORVASTATIN CALCIUM 20 MG TABLET PO SCH (21:46)
--- NOTE | 2020-06-02 22:04 | PDOC ---
Exam Note: Jorge Note: Please also refer to the separate dictated note~for this date of service dictated separately.~Patient seen individually. Discussed the patient with Nursing staff reviewed the chart.~Reviewed interim history and current functioning. Reviewed vital signs,~Labs/ Radiology~and current medications noted below. Continue current treatment with the changes noted in the dictated addendum note Assessment: Vital Signs/I&O: Vital Signs Date Time Temp Pulse Resp B/P (MAP) Pulse Ox O2 Delivery O2 Flow Rate FiO2 06/02/20 19:03 98.6 06/02/20 15:33 69 18 160/75 (103) 91 2.0 05/28/20 15:39 Room Air I & O 06/01/20 06/01/20 06/02/20 15:00 23:00 07:00 Intake Total 600 ml 600 ml Balance 600 ml 600 ml Labs: Laboratory Tests Test 06/02/20 13:05 Coronavirus (COVID-19)(PCR) Positive (NEGATIVE) H Current Medications: I have reviewed the current psychotropics carefully including drug interactions. Risk benefit ratio favors no change other than as noted in my dictated progress note. Diagnosis: Problems: (1) Major depressive disorder, recurrent episode (2) Impulse control disorder, unspecified (3) Anxiety disorder, unspecified RAMILA ALAS MD Jun 02, 2020 22:04
--- NOTE | 2020-06-03 02:58 | NUR ---
Nursing Note The patient was calm and compliant this shift and took her medication whole. The patient requested PRN Lizien with her HS medication. The patient is currently sleeping in her room.
[2020-06-03] MEDS: LEVOTHYROXINE 88 MCG TABLET PO SCH (06:06)
[2020-06-03 06:22] VITALS: BP 169/71
--- NOTE | 2020-06-03 07:07 | PDOC ---
Exam Note: Jorge Note: This note is a late entry for 06/02/2020 covers elements not covered in my initial note. Subjective: The patient was seen on telehealth rounds in the evening of 06/02/2020 with nursing staff. The unit is on lockdown due to the COVID positive patient on our unit, which was discovered. Each patient is in their room, not able to come out to the dining room or to interact with others according to the recommendation by the [facility]. Per Adriana PECK, she slept 7-1/4 hours previous night. The patient has been extremely angry, irritable. She is more depressed having to be kept in her room for isolation since she is COVID positive. Review of Systems: No CV, , eye, ENT system symptoms on review. Shortness of breath on O2 supplements. Mental Status Exam: Reasonably oriented. Speech is coherent. Abstraction is fair. Computation is impaired. Language function is intact. Mood and affect withdrawn, depressed. No suicidal ideation. Laboratory Data: Reviewed. Impression: Major depressive disorder, recurrent severe. Anxiety disorder unspecified. Impulse control disorder unspecified. Plan: No change from initial note. Assessment: Vital Signs/I&O: Vital Signs Date Time Temp Pulse Resp B/P (MAP) Pulse Ox O2 Delivery O2 Flow Rate FiO2 06/03/20 06:22 98.2 104 16 169/71 (103) 93 Nasal Cannula 2.0 I & O 06/02/20 06/02/20 06/03/20 14:59 22:59 06:59 Intake Total 720 ml 360 ml 120 ml Balance 720 ml 360 ml 120 ml Labs: Laboratory Tests Test 06/02/20 13:05 Coronavirus (COVID-19)(PCR) Positive (NEGATIVE) H Current Medications: I have reviewed the current psychotropics carefully including drug interactions. Risk benefit ratio favors no change other than as noted in my dictated progress note. Diagnosis: Problems: (1) Major depressive disorder, recurrent episode (2) Impulse control disorder, unspecified (3) Anxiety disorder, unspecified RAIMLA ALAS MD Jun 03, 2020 07:07
[2020-06-03] MEDS: INSULIN LISPRO 300 UNITS/3 ML VIAL. SQ SCH ×2 (08:00→11:50)
[2020-06-03 10:06] VITALS: BP 169/71
[2020-06-03] MEDS: buPROPion XL 300 MG TAB.ER.24H. PO SCH (10:06)
[2020-06-03] MEDS: ASPIRIN CHEWABLE 81 MG TABLET. PO SCH (10:06)
[2020-06-03] MEDS: SERTRALINE 25 MG TABLET. PO SCH (10:06)
[2020-06-03] MEDS: amLODIPine BESYLATE 10 MG TABLET PO SCH (10:06)
--- NOTE | 2020-06-03 11:42 | NUR ---
ALOK left a message for Mykel to contact ALOK RITA to discuss pt testing.
[2020-06-03] MEDS ORDERED: ACET325T21 PO (12:05)
[2020-06-03] MEDS ORDERED: DEXT50DI3 IV (12:06)
[2020-06-03] MEDS ORDERED: MAG-115 PO (12:08)
[2020-06-03] MEDS ORDERED: INSU100C4 SQ (12:08)
[2020-06-03] MEDS ORDERED: METH57CR17 TP (12:09)
[2020-06-03] MEDS ORDERED: MAGN400O7 PO (12:09)
[2020-06-03] MEDS ORDERED: AMLO10TA8 PO (12:10)
[2020-06-03] MEDS ORDERED: SERT50TA PO (12:10)
[2020-06-03] MEDS ORDERED: TRAZ-120 PO ×2 (12:11→12:12)
[2020-06-03] MEDS ORDERED: BUPR300T92 PO (12:11)
--- NOTE | 2020-06-03 12:46 | NUR ---
ALOK contacted pt son, Mykel and updated him on pt Covoid test, which has resulted as positive. ALOK informed pt son that pt is not exhibiting any symptoms currently. Due to the set up of the unit, we are not equipped to have positive pts upstairs. Pt will be discharged downstairs to the Covoid unit and be under further observation. Once a medical treatment plan will be determined, ALOK will keep Mykel up to date. ALOK and Mykel also discussed the recommendation for placement. Both parties agreed that [facility] is most appropriate as she is very mobile and has more ability to be active than most who are on [facility] and [facility] Care. Mykel reports that pt is pulling at the heart strings of his sister and would like for SW to speak with her, as she is attempting to see if pt can get her own apartment and live in the community. ALOK is not sure at this time if that would be appropriate as pt would need someone to monitor medication and ensure that she would complete all ADL's, as well as care for her food needs. ALOK will contact Mykel once more information is obtained about pt transfer later today.
--- NOTE | 2020-06-03 23:31 | PDOC ---
Exam Note: Jorge Note: Please also refer to the separate dictated note~for this date of service dictated separately.~Patient seen individually. Discussed the patient with Nursing staff reviewed the chart.~Reviewed interim history and current functioning. Reviewed vital signs,~Labs/ Radiology~and current medications noted below. Continue current treatment with the changes noted in the dictated addendum note Assessment: Vital Signs/I&O: Vital Signs Date Time Temp Pulse Resp B/P (MAP) Pulse Ox O2 Delivery O2 Flow Rate FiO2 06/03/20 10:06 104 169/71 06/03/20 09:45 98.9 91 06/03/20 06:22 16 Nasal Cannula 2.0 I & O 06/02/20 06/02/20 06/03/20 14:59 22:59 06:59 Intake Total 720 ml 360 ml 120 ml Balance 720 ml 360 ml 120 ml Current Medications: I have reviewed the current psychotropics carefully including drug interactions. Risk benefit ratio favors no change other than as noted in my dictated progress note. Diagnosis: Problems: (1) Major depressive disorder, recurrent episode (2) Impulse control disorder, unspecified (3) Anxiety disorder, unspecified RAMILA ALAS MD Jun 03, 2020 23:31
[2020-06-04] MEDS ORDERED: SERTRALINE 25 MG TABLET. PO SCH (09:00)
== END 2020-06-03 13:20 | disposition short-term general hospital (02) | DRG 885 ==
LOC: GEROPSY 17:59
PROVIDERS: ADMIT Psychiatry & Neurology Psychiatry; ATTEND Psychiatry & Neurology Psychiatry
DX: F33.2 Major depressive disorder, recurrent severe without psychotic features (principal); U07.1 COVID-19; E11.22 Type 2 diabetes mellitus with diabetic chronic kidney disease; E78.5 Hyperlipidemia, unspecified; F03.90 Unspecified dementia, unspecified severity, without behavioral disturbance, psychotic disturbance, mood disturbance, and anxiety; F17.210 Nicotine dependence, cigarettes, uncomplicated; F41.9 Anxiety disorder, unspecified; F63.9 Impulse disorder, unspecified; I12.9 Hypertensive chronic kidney disease with stage 1 through stage 4 chronic kidney disease, or unspecified chronic kidney disease; N18.3 Chronic kidney disease, stage 3 (moderate); Z66 Do not resuscitate; Z90.710 Acquired absence of both cervix and uterus
CPT/HCPCS: 36415; 70450; 80053; 80061; 81001; 82306; 82607; 82947; 83036; 83540; 83550; 83735; 84436; 84443; 84480; 85025; 86592; 99406; J1650; J1815; 97110; 97116; 97530; 99285-25; U0003-CS

== ENCOUNTER 2020-06-03 13:21 | Inpatient (IN) | payer MEDICARE ==
[~2020-06-03] VITALS: Ht 165.1 cm; Wt 66.0 kg
[~2020-06-03 13:21] MED LIST: ACET325T21 PO; AMLO10TA8 PO; ASPI81TA59 PO; ATOR40TA59 PO; BENA20TA4 PO; BUPR300T92 PO; BUSP10TA PO; DEXT50DI3 IV; ENOX40DI SQ; ESCITALOPRAM OX10 MG PO; INSU100C4 SQ; LEVO88TA4 PO; LORA-254 PO; MAG-115 PO; MAGN400O7 PO; METF-550 PO; METH57CR17 TP; SERT50TA PO; TRAZ-120 PO; ZOLP5TAB5 PO
[2020-06-03] MEDS ORDERED: METHYL SALICYLATE/MENTHOL TOPICAL OINTMENT 57GM TUBE. TP PRN (14:30)
[2020-06-03] MEDS ORDERED: MAG HYDROX/AL HYDROX/SIMETH 30 ML ORAL.SUSP PO PRN (14:30)
[2020-06-03] MEDS ORDERED: MAGNESIUM HYDROXIDE 2,400 MG/30 ML ORAL.SUSP. PO PRN (14:30)
[2020-06-03] MEDS ORDERED: DEXTROSE 50% 25 GM / 50ML DISP.SYRIN. IV PRN ×2 (14:30)
[2020-06-03 16:26] VITALS: BP 162/61
[2020-06-03] MEDS: INSULIN LISPRO 300 UNITS/3 ML VIAL. SQ SCH (17:00)
[2020-06-03 17:42] VITALS: BP 164/78
--- NOTE | 2020-06-03 18:38 | HP ---
ADMIT DATE: 06/03/2020 HISTORY OF PRESENT ILLNESS: The patient is a 74-year-old female patient who apparently tested positive for COVID-19 while at [facility] and therefore, she was transferred to [address] [place] [address] for further evaluation and treatment if deemed necessary. She herself denied any complaint. She was hemodynamically stable and afebrile. She was tested as other residents were positive. She is now down to be quarantined for 2 weeks. PAST MEDICAL HISTORY: Significant for hypertension, hyperlipidemia, type 2 diabetes that is noninsulin dependent. She does have short-term memory loss and does not really remember a lot. PAST SURGICAL HISTORY: Significant for fracture and hysterectomy. The patient was admitted to [facility] in [place], and she lives in [place]. She has an underlying diagnosis of dementia for the last several years. Eight months ago, she and her and she was removed from the home. She has been living with her son and she has become quite despondent with suicidal ideation. She has become agitated, depressed, and has had ideation of wanting to kill herself. She has not made any attempt yet. She was evaluated, stabilized and sent upstairs at [facility] for further treatment regarding her depression and unfortunately, she tested positive during screening for the residents for COVID-19. ALLERGIES: She has no known drug allergies. MEDICATIONS: She is currently on following medications: She is on sertraline 75 mg once a day, Wellbutrin 300 mg once a day, amlodipine 10 mg once a day, levothyroxine sodium 88 mcg once a day. She is on insulin sliding scale before meals. She is on trazodone 50 mg at bedtime, trazodone 50 mg as needed, lorazepam 0.5 mg every 8 hours, aspirin 81 mg once a day, atorvastatin 40 mg at bedtime, Ambien 5 mg at bedtime. She is on milk of magnesia 30 mL p.o. daily p.r.n. for constipation; Mylanta 15 mL before, after meals and bedtime and as needed. She is on analgesic balm applied topically 4 times a day, and Tylenol 650 mg every 4 hours as needed. REVIEW OF SYSTEMS: As per history of present illness, the patient is basically asymptomatic. PHYSICAL EXAMINATION: GENERAL: When I saw her today, she was sitting on edge of the bed comfortably in no apparent respiratory distress. She was somewhat pale, but no jaundice, cyanosis or thyromegaly. No jugular venous distention. No limb edema. VITAL SIGNS: Her heart rate was 80, blood pressure was 162/61, temperature was 98.1, respiratory rate 20, and oxygen saturation was 92% on 2 liters of oxygen. HEAD, EYES, EARS, NOSE AND THROAT: Showed normocephalic, atraumatic. NECK: Supple. HEART: Showed normal first and second heart sounds. No gallop, rub or murmur. CHEST: Clear to auscultation. No crepitation or rhonchi. ABDOMEN: Distended, soft, nontender. No guarding or rigidity. No organomegaly. All hernial orifices intact. Bowel sounds normal. NEUROLOGIC: She is somewhat demented, but without any obvious lateralizing sign. All cranial nerves intact. She moves extremities without difficulty. She ambulates without assistance or assistive devices. LABORATORY DATA: Her most recent white cell count was 6200, hemoglobin 12, hematocrit 36, MCV 91, and platelet count 225,000. Her most recent chemistry showed a serum sodium 137, potassium 4.3, chloride 100, bicarbonate 33, anion gap of 4, BUN 23, creatinine 1.7, estimated GFR was 29 mL per minute. Her glucose was 138, calcium was 8.7. Total bilirubin, AST, ALT, alkaline phosphatase were normal. Total protein was 5.9, albumin was 2.7. Urinalysis essentially unremarkable and her COVID-19 by PCR was positive. PLAN: Obviously to continue with all her medication and I will repeat all her labs including CBC, CMP, sed rate, CRP as well as D-dimer and we will follow her closely on a daily basis and treat her accordingly. BOOM BILL MD DR: ELIAZAR/antonia JOB#: [id number] / [id number]
--- NOTE | 2020-06-03 19:25 | NUR ---
Pt arrived on previous shift, report received from LIV Barragan. Pt transferred from [facility] to [address] [place] [address] room 120 for + Covid result. Pt currently asymptomatic and denies complaints. Pt placed in airborne and contact isolation. Admission assessment completed. VSS. Pt wears 2L of oxygen at HS. Pt had recent divorce from and found out that he is "seeing" someone else already. Pt expressed sadness about the situation but hopeful to get her "own place and back on my feet soon." Denies SI/HI. Health history and home medications per [facility] discharge. Pt seems anxious about + Covid result, stating "I am so mad that I got this....I was so careful and kept to myself!" Pt requested insomnia medication and Ativan tonight. POC reviewed with pt, understanding verbalized. Call light in reach.
[2020-06-03] MEDS: traZODone 50 MG TABLET. PO SCH (20:02)
[2020-06-03] MEDS: LORazepam 0.5 MG TABLET PO PRN (20:02)
[2020-06-03 20:21] VITALS: BP 160/76
[2020-06-03] MEDS: ZOLPIDEM 5 MG TABLET. PO PRN (22:12)
[2020-06-03 22:14] VITALS: BP 164/76
--- NOTE | 2020-06-04 05:30 | NUR ---
Pt sitting up on side of bed at change of shift watching TV, getting settled into her new room. Pt interacting appropriately with staff. VSS during night. Pt placed on 2L of oxygen before bed. Pt requested PRN Lizien and Atmyranda olivo, slept great after administration. Pt frequently talks about her recent divorce (2weeks) from and his new love interest. Pt expressed disappointment and sadness about the situation but hopeful to get on with her life. Denies SI/HI. Pt remains asymptomatic from Covid sx.
[2020-06-04 05:48] VITALS: BP 137/69
[2020-06-04 05:48] LABS: HEMATOCRIT 40.2 % (36.0-47.0); HEMOGLOBIN 13.4 g/dL (12.0-15.5); RED BLOOD COUNT 4.45 x10^6/uL (3.50-5.40); RED CELL DISTRIBUTION WIDTH 13.2 % (11.5-14.5); WHITE BLOOD COUNT 4.5 x10^3/uL (4.0-11.0)
[2020-06-04 06:06] LABS: ALBUMIN 3.2 g/dL (3.4-5.0); ALBUMIN/GLOBULIN RATIO 0.9 (1.0-1.7); ALK PHOS 101 U/L (46-116); ALT (SGPT) 35 U/L (14-59); ANION GAP 5 (6-14); AST (SGOT) 30 U/L (15-37); BLOOD UREA NITROGEN 18 mg/dL (7-20); BUN/CREATININE RATIO 11 (6-20); CALCIUM 9.2 mg/dL (8.5-10.1); CARBON DIOXIDE 34 mmol/L (21-32); CHLORIDE 101 mmol/L (98-107); CREATININE 1.7 mg/dL (0.6-1.0); GFR 29.5; GLUCOSE 99 mg/dL (70-99); POTASSIUM 3.5 mmol/L (3.5-5.1); SODIUM 140 mmol/L (136-145); TOTAL BILIRUBIN 0.4 mg/dL (0.2-1.0); TOTAL PROTEIN 6.8 g/dL (6.4-8.2)
[2020-06-04 06:09] LABS: C REACTIVE PROTEIN < 0.5 mg/L (0-3.3)
--- NOTE | 2020-06-04 07:54 | NUR ---
IP: patient +COVID-19, requires contact and airborne precautions.
[2020-06-04] MEDS: ATORVASTATIN CALCIUM 20 MG TABLET PO SCH (08:06)
[2020-06-04] MEDS: buPROPion XL 300 MG TAB.ER.24H. PO SCH (08:06)
[2020-06-04] MEDS: INSULIN LISPRO 300 UNITS/3 ML VIAL. SQ SCH ×3 (08:07→17:00)
[2020-06-04] MEDS: ASPIRIN CHEWABLE 81 MG TABLET. PO SCH (08:07)
[2020-06-04] MEDS: SERTRALINE 25 MG TABLET. PO SCH (08:07)
[2020-06-04] MEDS: amLODIPine BESYLATE 10 MG TABLET PO SCH (08:07)
[2020-06-04] MEDS: LEVOTHYROXINE 88 MCG TABLET PO SCH (08:07)
[2020-06-04] MEDS: ACETAMINOPHEN 325 MG TABLET PO PRN (10:45)
[2020-06-04 10:55] VITALS: BP 150/71
[2020-06-04 15:07] VITALS: BP 149/87
[2020-06-04 19:31] VITALS: BP 149/87
--- NOTE | 2020-06-04 20:33 | PN ---
DATE: 06/04/2020 SUBJECTIVE: The patient is resting, slightly propped up in bed, in no apparent respiratory distress. She is awake, alert. On questioning her, she denied any complaints. Nursing staff did not voice any concerns and she had an uneventful night. PHYSICAL EXAMINATION: GENERAL: When I examined her, she looked well with no pallor, jaundice, cyanosis or thyromegaly. No jugular venous distention. No lower limb edema. VITAL SIGNS: Her heart rate was 63, blood pressure was 149/87, temperature was 98.1, respiratory rate 20, and oxygen saturation was 97% on room air. HEAD, EYES, EARS, NOSE AND THROAT: Showed normocephalic, atraumatic. NECK: Supple. HEART: Showed normal first and second heart sounds. No gallop or murmur. CHEST: Clear to auscultation. No crepitation or rhonchi. ABDOMEN: Distended, soft, nontender. NEUROLOGIC: She was awake, alert, responding appropriately. All cranial nerves intact. She moves extremities without difficulty. She ambulates without assistance or assistive devices. Her intake over the last 24 hours and output were incompletely recorded. LABORATORY DATA: As of this morning showed a white cell count 4500, hemoglobin 13, hematocrit 40, MCV 90, platelet count 209,000. Her chemistry showed a serum sodium of 140, potassium 3.5, chloride 101, bicarbonate 34, anion gap of 5, BUN 18, creatinine 1.7, estimated GFR was 29 mL per minute. Her glucose was 99, calcium was 9.2. Total bilirubin, AST, ALT, alkaline phosphatase were normal. Her C-reactive protein was less than 0.5 mg/dL, total protein was 6.8, albumin 3.2. Her D-dimer was slightly elevated at 0.95. ASSESSMENT: 1. The patient was transferred from [facility] as she has tested positive for COVID-19 by PCR. 2. The patient is completely asymptomatic. She has no fever, no others, no cough or phlegm. All her lab works including her white cell count, platelets, liver enzymes and kidney function are all within normal range. Her D-dimer is slightly elevated. We will obviously continue with all her medication. I will add Lovenox in therapeutic form and monitor her closely. She has multiple other medical problems including: A. Hypertension. B. Hyperlipidemia. C. Type 2 diabetes. She also has short-term memory loss. BOOM BILL MD DR: ELIAZAR/antonia JOB#: [id number] / [id number]
[2020-06-04] MEDS: ENOXAPARIN 40 MG/0.4 ML SYRINGE. SQ SCH (22:33)
[2020-06-04] MEDS: traZODone 50 MG TABLET. PO SCH (22:34)
[2020-06-04 23:30] VITALS: BP 156/67
[2020-06-05] MEDS: ZOLPIDEM 5 MG TABLET. PO PRN ×2 (00:15→21:43)
[2020-06-05 06:26] VITALS: BP 147/64
[2020-06-05] MEDS: INSULIN LISPRO 300 UNITS/3 ML VIAL. SQ SCH ×3 (08:00→16:48)
[2020-06-05] MEDS: ASPIRIN CHEWABLE 81 MG TABLET. PO SCH (08:33)
[2020-06-05] MEDS: buPROPion XL 300 MG TAB.ER.24H. PO SCH (08:33)
[2020-06-05] MEDS: ATORVASTATIN CALCIUM 20 MG TABLET PO SCH (08:33)
[2020-06-05] MEDS: LEVOTHYROXINE 88 MCG TABLET PO SCH (08:33)
[2020-06-05] MEDS: SERTRALINE 25 MG TABLET. PO SCH (08:34)
[2020-06-05] MEDS: amLODIPine BESYLATE 10 MG TABLET PO SCH (08:34)
[2020-06-05 10:02] VITALS: BP 13/62
--- NOTE | 2020-06-05 15:09 | PN ---
DATE: 06/05/2020 SUBJECTIVE: The patient is sitting at the edge of the bed comfortably in no apparent distress. On questioning her, she denied any complaints, in particular denied any chest pain, shortness of breath, chills, rigors, or fever. Denied any diarrhea. Nursing staff did not voice any concerns as she has generally uneventful night. PHYSICAL EXAMINATION: GENERAL: When I examined her, she looked pale, no jaundice, cyanosis or thyromegaly. No jugular venous distention. No limb edema. VITAL SIGNS: Her heart rate was 62, blood pressure was 113/62, temperature was 97.7, respiratory rate was 16, and oxygen saturation was 97% on 2 liters of oxygen. HEAD, EYES, EARS, NOSE, AND THROAT: Normocephalic, atraumatic. NECK: Supple. HEART: Showed normal first and second heart sounds with no gallop, rub, or murmur. CHEST: Clear to auscultation. No crepitation or rhonchi. ABDOMEN: Distended, soft, nontender. NEUROLOGIC: She is grossly intact. Her intake over the last 24 hours was 1760, no output was recorded. LABORATORY DATA: As of yesterday, her white cell count was 4500, hemoglobin 13, hematocrit 40, MCV 90, and platelet count of 209 thousand. Her chemistry showed a serum sodium 140, potassium 3.5, chloride 101, bicarbonate 34, anion gap of 5, BUN 18, creatinine 1.7, estimated GFR was 29 mL per minute. Her glucose was 99, calcium was 9.2. Total bilirubin, AST, ALT, alkaline phosphatase were normal. Her C-reactive protein was less than 0.5 mg per liter. Total protein was 6.8, albumin 3.2. The D-dimer was 0.95 mg. ASSESSMENT: 1. The patient was transferred from [facility] as she has tested positive for COVID-19 by PCR. 2. The patient was completely asymptomatic. She continues to be afebrile, hemodynamically stable. 3. Her lab work showed her white cell count, platelets, liver enzymes, kidney functions are all within normal range. Her D-dimer is slightly elevated; however, C-reactive protein only 0.5 mg/dL. 4. Other medical problems include hypertension, hyperlipidemia, type 2 diabetes, as well as short-term memory loss. PLAN: To continue with all her current medications. Continue to monitor her closely. BOOM BILL MD DR: ELIAZAR/antonia JOB#: [id number] / [id number]
[2020-06-05 15:35] VITALS: BP 159/77
[2020-06-05 19:10] VITALS: BP 160/73
[2020-06-05] MEDS: ENOXAPARIN 40 MG/0.4 ML SYRINGE. SQ SCH (20:50)
[2020-06-05] MEDS: traZODone 50 MG TABLET. PO SCH (20:50)
[2020-06-05 23:48] VITALS: BP 131/55
[2020-06-06 06:01] VITALS: BP 142/64
[2020-06-06] MEDS: INSULIN LISPRO 300 UNITS/3 ML VIAL. SQ SCH ×3 (08:00→16:48)
[2020-06-06] MEDS: ASPIRIN CHEWABLE 81 MG TABLET. PO SCH (09:38)
[2020-06-06] MEDS: SERTRALINE 25 MG TABLET. PO SCH (09:38)
[2020-06-06] MEDS: ATORVASTATIN CALCIUM 20 MG TABLET PO SCH (09:38)
[2020-06-06] MEDS: LEVOTHYROXINE 88 MCG TABLET PO SCH (09:38)
[2020-06-06] MEDS: buPROPion XL 300 MG TAB.ER.24H. PO SCH (09:38)
[2020-06-06] MEDS: amLODIPine BESYLATE 10 MG TABLET PO SCH (09:39)
[2020-06-06 11:31] VITALS: BP 141/61
--- NOTE | 2020-06-06 15:28 | PN ---
DATE: 06/06/2020 SUBJECTIVE: The patient is resting, slightly propped up in bed, in no apparent distress. She is awake, alert, did not offer any complaint. The nursing staff did not voice any concern and stated that she had an uneventful night. PHYSICAL EXAMINATION: GENERAL: When I examined her, she looked pale. No jaundice, cyanosis or thyromegaly. No jugular venous distention. No limb edema. VITAL SIGNS: Her heart rate was 72, blood pressure was 141/61, temperature was 97.8, respiratory rate was 18, and oxygen saturation was 92% on room air. HEAD, EYES, EARS, NOSE, THROAT: Showed normocephalic, atraumatic. NECK: Supple. HEART: Showed normal first and second heart sounds. No gallop, rub or murmur. CHEST: Clear to auscultation. No crepitation or rhonchi. ABDOMEN: Distended, soft, nontender. NEUROLOGIC: She was demented, but without any obvious lateralizing sign. Her intake over the last 24 hours was 2540. No lab work was available for today. ASSESSMENT: 1. The patient was transferred from [facility] as she has tested positive for COVID-19 by PCR. 2. The patient continues to be completely asymptomatic. She continues to be afebrile, hemodynamically stable. 3. Her lab work showed that her cell count, platelet, liver enzymes, kidney functions are all within normal limits. Her D-dimer was slightly elevated; however C-reactive protein was only 0.5 mg/dL. 4. Other medical problems include: A. Hypertension. B. Hyperlipidemia. C. Type 2 diabetes. D. Short-term memory loss. PLAN: To continue with current medications. Continue to monitor her closely. BOOM BILL MD DR: ELIAZAR/antonia JOB#: [id number] / [id number]
[2020-06-06 16:32] VITALS: BP 141/63
[2020-06-06 19:45] VITALS: BP 159/65
[2020-06-06] MEDS: ENOXAPARIN 40 MG/0.4 ML SYRINGE. SQ SCH (21:43)
[2020-06-06] MEDS: traZODone 50 MG TABLET. PO SCH (21:43)
[2020-06-06] MEDS: ZOLPIDEM 5 MG TABLET. PO PRN (23:11)
[2020-06-06 23:13] VITALS: BP 151/66
[2020-06-07 05:52] VITALS: BP 167/67
[2020-06-07] MEDS: ATORVASTATIN CALCIUM 20 MG TABLET PO SCH (08:23)
[2020-06-07] MEDS: amLODIPine BESYLATE 10 MG TABLET PO SCH (08:23)
[2020-06-07] MEDS: LEVOTHYROXINE 88 MCG TABLET PO SCH (08:23)
[2020-06-07] MEDS: ASPIRIN CHEWABLE 81 MG TABLET. PO SCH (08:23)
[2020-06-07] MEDS: ACETAMINOPHEN 325 MG TABLET PO PRN (08:23)
[2020-06-07] MEDS: INSULIN LISPRO 300 UNITS/3 ML VIAL. SQ SCH ×3 (08:24→17:00)
[2020-06-07] MEDS: SERTRALINE 25 MG TABLET. PO SCH (08:24)
[2020-06-07] MEDS: buPROPion XL 300 MG TAB.ER.24H. PO SCH (08:24)
[2020-06-07 11:01] VITALS: BP 147/60
--- NOTE | 2020-06-07 13:50 | NUR ---
NSG NOTE; FSBS THE TEST RESULTS DID NOT CROSS OVER FROM THE GLUCOMETER INTO MEDITECH: 0800: 90 1200: 84
[2020-06-07 14:22] VITALS: BP 154/66
--- NOTE | 2020-06-07 17:34 | NUR ---
NSG NOTE; N/V PT VOMITING. DR BILL CALLED AND ORDER FOR RODAN OBTAINED
[2020-06-07] MEDS: ONDANSETRON ODT 4 MG TAB.RAPDIS PO PRN (17:43)
--- NOTE | 2020-06-07 18:56 | PN ---
DATE: 06/07/2020 SUBJECTIVE: The patient is somewhat withdrawn and unhappy. However, she remained afebrile, hemodynamically stable. OBJECTIVE: GENERAL: On examining her, she was pale, no jaundice, cyanosis, or thyromegaly. No jugular venous distention. No limb edema. VITAL SIGNS: Her heart rate was 78, blood pressure was 147/60, temperature 97.8, respiratory rate 20, and oxygen saturation was 94% on 2 liters of oxygen. HEAD, EYES, EARS, NOSE, AND THROAT: Normocephalic, atraumatic. NECK: Supple. HEART: Showed normal first and second heart sounds with no gallop, rub, or murmur. CHEST: Clear to auscultation. No crepitation or rhonchi. ABDOMEN: Distended, soft, nontender. NEUROLOGIC: She is awake, alert, responding appropriately. All cranial nerves are intact. She moves extremities without difficulty. She ambulates without assistance or assistive devices. Her intake was 608, no output was recorded. LABORATORY DATA: Showed that her BUN was 18, creatinine 1.7, normal electrolytes and liver enzymes. Her white cell count was 4500, hemoglobin 13, hematocrit 40, MCV 90, and platelet count 209,000. ASSESSMENT: 1. The patient was transferred from [facility] as she has tested positive for COVID-19 by PCR. 2. The patient continued to be completely asymptomatic. She continues to be afebrile, hemodynamically stable. 3. Her lab work showed that her white cell count, platelets, and liver enzymes as well as kidney functions are all within normal limit. Her D-dimer was slightly elevated; however, C-reactive protein was only 0.5 mg/dL. 4. Other medical problems include: A. Hypertension seems to be well controlled. B. Hyperlipidemia. C. Type 2 diabetes mellitus. D. Short-term memory. PLAN: To continue with current medications. Continue to monitor her closely. She was swabbed for COVID-19 today. BOOM BILL MD DR: ELIAZAR/antonia JOB#: [id number] / [id number]
[2020-06-07 19:16] VITALS: BP 165/70
[2020-06-07] MEDS: traZODone 50 MG TABLET. PO SCH (21:09)
[2020-06-07] MEDS: ENOXAPARIN 40 MG/0.4 ML SYRINGE. SQ SCH (21:09)
[2020-06-07 22:07] VITALS: BP 168/73
[2020-06-08 06:07] VITALS: BP 157/69
[2020-06-08] MEDS: INSULIN LISPRO 300 UNITS/3 ML VIAL. SQ SCH ×3 (08:00→17:00)
[2020-06-08] MEDS: SERTRALINE 25 MG TABLET. PO SCH (10:26)
[2020-06-08] MEDS: ASPIRIN CHEWABLE 81 MG TABLET. PO SCH (10:26)
[2020-06-08] MEDS: amLODIPine BESYLATE 10 MG TABLET PO SCH (10:27)
[2020-06-08] MEDS: buPROPion XL 300 MG TAB.ER.24H. PO SCH (10:27)
[2020-06-08] MEDS: ATORVASTATIN CALCIUM 20 MG TABLET PO SCH (10:27)
[2020-06-08] MEDS: LEVOTHYROXINE 88 MCG TABLET PO SCH (10:27)
[2020-06-08 10:36] VITALS: BP 147/62
--- NOTE | 2020-06-08 12:55 | NUR ---
PATIENT IS IN A BED UPON ASSESSMENT, AWAKE, A/O X4, COOPERATIVE DURING ASSESSMENT, PT STATED SHE IS SAD AND UNHAPPY FOR BEING ON ISOLATION D/T COVID 19 VIRUS. PT C/O LOSS OF APPETITE, PT WAS ENCOURAGED TO EAT SOME SNACKS TO KEEP HER BLOOD GLUCOSE WITHIN NORMAL LEVEL. WILL CONTINUE TO MONITOR.
[2020-06-08 15:27] VITALS: BP 154/60
[2020-06-08 19:43] VITALS: BP 161/66
[2020-06-08] MEDS: ENOXAPARIN 40 MG/0.4 ML SYRINGE. SQ SCH (21:01)
[2020-06-08] MEDS: ACETAMINOPHEN 325 MG TABLET PO PRN (21:02)
[2020-06-08] MEDS: traZODone 50 MG TABLET. PO SCH (21:02)
[2020-06-08 22:25] VITALS: BP 148/58
[2020-06-08] MEDS: traZODone 50 MG TABLET. PO PRN (23:23)
[2020-06-08] MEDS: ZOLPIDEM 5 MG TABLET. PO PRN (23:24)
--- NOTE | 2020-06-09 03:36 | PN ---
DATE: 06/08/2020 SUBJECTIVE: The patient is resting, slightly propped up in bed, in no apparent respiratory distress. She has been depressed and frustrated as she is basically almost incarcerated here because of the coronavirus; however, she remained afebrile, hemodynamically stable. PHYSICAL EXAMINATION: GENERAL: When I examined her, she looked well and was clearly in no apparent distress. No pallor, jaundice or cyanosis. No lymphadenopathy, no thyromegaly. No jugular venous distention. No limb edema. VITAL SIGNS: Her heart rate was 61, blood pressure was 147/62, temperature was 98.4, respiratory rate was 20, and oxygen saturation was 96% on 2 liters of oxygen. The rest of clinical exam is stable, has not really changed. Her intake over the last 24-hours was 1200, no output was recorded. LABORATORY DATA: No lab work done; however, her white cell count was normal as well as her kidney function stable as well as her liver enzymes. Her chest x-ray was also unremarkable. ASSESSMENT: 1. The patient was transferred from [facility] as she has tested positive for COVID-19 by PCR. 2. The patient continued to be completely asymptomatic. She continues to be afebrile, hemodynamically stable. 3. Her lab work showed that her white cell count, platelets, liver enzymes as well as kidney functions are all within normal range. D-dimer was slightly elevated. Her C-reactive protein was only 0.5 mg/dL. 4. Other medical problems include: A. Hypertension, that seems to be well controlled. B. Hyperlipidemia. C. Type 2 diabetes mellitus. D. Short-term memory loss. PLAN: To continue with current medications. Continue to monitor her closely. She will be swabbed again tomorrow for COVID-19. I will repeat her lab works tomorrow. BOOM BILL MD DR: ELIAZAR/antonia JOB#: [id number] / [id number]
--- NOTE | 2020-06-09 04:50 | NUR ---
Pt. hudson but cooperative during assessment. Pt appeared to be demanding about HS medications. Pt. received PRN Trazodone and Ambien to aid sleep. Pt had flat affect and withdrawn when attempting engage in conversation. Pt slept well after PRN administration.
[2020-06-09 05:39] LABS: BASO % 1 % (0-3); EOS # 0.2 x10^3/uL (0.0-0.7); EOS % 4 % (0-3); HEMATOCRIT 35.7 % (36.0-47.0); HEMOGLOBIN 12.1 g/dL (12.0-15.5); LYMPH # 1.3 x10^3/uL (1.0-4.8); LYMPH % 33 % (24-48); MEAN CORPUSCULAR HEMOGLOBIN 30 pg (25-35); MEAN CORPUSCULAR HGB CONC 34 g/dL (31-37); MEAN CORPUSCULAR VOLUME 89 fL (79-100); MONO # 0.4 x10^3/uL (0.0-1.1); MONO % 11 % (0-9); NEUT # 2.1 x10^3uL (1.8-7.7); NEUT % 52 % (31-73); PLATELET COUNT 182 x10^3/uL (140-400); RED BLOOD COUNT 4.03 x10^6/uL (3.50-5.40); RED CELL DISTRIBUTION WIDTH 13.1 % (11.5-14.5); WHITE BLOOD COUNT 4.1 x10^3/uL (4.0-11.0)
[2020-06-09 05:45] LABS: ALBUMIN 2.7 g/dL (3.4-5.0); ALBUMIN/GLOBULIN RATIO 0.9 (1.0-1.7); CALCIUM 8.4 mg/dL (8.5-10.1); CREATININE 1.6 mg/dL (0.6-1.0); GFR 31.7; POTASSIUM 3.5 mmol/L (3.5-5.1); TOTAL BILIRUBIN 0.3 mg/dL (0.2-1.0); TOTAL PROTEIN 5.8 g/dL (6.4-8.2)
[2020-06-09 06:19] VITALS: BP 165/67
[2020-06-09] MEDS: INSULIN LISPRO 300 UNITS/3 ML VIAL. SQ SCH ×3 (08:00→17:00)
[2020-06-09] MEDS: LORazepam 0.5 MG TABLET PO PRN (08:09)
[2020-06-09] MEDS: SERTRALINE 25 MG TABLET. PO SCH (08:09)
[2020-06-09] MEDS: LEVOTHYROXINE 88 MCG TABLET PO SCH (08:09)
[2020-06-09] MEDS: amLODIPine BESYLATE 10 MG TABLET PO SCH (08:09)
[2020-06-09] MEDS: ASPIRIN CHEWABLE 81 MG TABLET. PO SCH (08:09)
[2020-06-09] MEDS: ATORVASTATIN CALCIUM 20 MG TABLET PO SCH (08:10)
[2020-06-09 10:17] VITALS: BP 143/67
[2020-06-09] MEDS: ACETAMINOPHEN 325 MG TABLET PO PRN ×2 (10:30→21:10)
[2020-06-09] MEDS: buPROPion XL 300 MG TAB.ER.24H. PO SCH (10:30)
[2020-06-09 14:33] VITALS: BP 109/58
--- NOTE | 2020-06-09 18:41 | PN ---
DATE: 06/09/2020 ATTENDING PHYSICIAN: Dr. Gr. SUBJECTIVE: The patient has a flat affect. She is a bit nauseated, does not have much appetite. No vomiting, no diarrhea. Still remains very depressed that she is cooped up in her room. OBJECTIVE FINDINGS: VITAL SIGNS: Today, her temperature is 96.7 degrees Fahrenheit, blood pressure is 143/67 mmHg, pulse 63 and regular, oxygen saturation 92% on 2 liters of nasal cannula. HEENT: Head is without trauma. Pupils are reactive. Sclerae nonicteric. Oropharynx clear. NECK: Supple. LUNGS: Good breath sounds. CARDIOVASCULAR: Showed distant heart tones. No gallops. ABDOMEN: Soft. EXTREMITIES: Showed no cyanosis or edema. NEUROLOGIC: Focally intact. Speech is fluent. Affect is flat. SKIN: Warm and dry. LABORATORY DATA: Reviewed today. Her chemistry panel was fairly unremarkable. Electrolytes within normal range. Creatinine is down a bit to 1.6 mg/dL. Transaminases are normal. CBC showed hemoglobin of 12.1 g with a white count of 4100. ASSESSMENT: 1. A 74-year-old female with COVID-19 positive report. She is asymptomatic. She was [facility]. 2. Hypertension. 3. Hyperlipidemia. 4. Short-term memory loss. 5. Type 2 diabetes. 6. Situational depression. PLAN: 1. Continue medicine as ordered. 2. Diet as tolerated. 3. She will be re-swabbed today. 4. Encouragement regarding her quarantine. KENIA RUBIN MD DR: MILES/antonia JOB#: [id number] / [id number] BOOM Ch MD
[2020-06-09 19:40] VITALS: BP 138/57
[2020-06-09] MEDS: ENOXAPARIN 40 MG/0.4 ML SYRINGE. SQ SCH (21:09)
[2020-06-09] MEDS: ZOLPIDEM 5 MG TABLET. PO PRN (21:11)
[2020-06-09] MEDS: traZODone 50 MG TABLET. PO SCH (21:11)
[2020-06-09 22:19] VITALS: BP 151/71
--- NOTE | 2020-06-10 02:29 | NUR ---
Pt. was calm and cooperative during assessment. Pt express how she wishes she could leave the hospital. Pt. also discusses how she is anxious that her COVID test results will come back positive. After having a discussion about POC pt seemed to feel better about her stay. Pt complained of having trouble falling to sleep. Pt received PRN Ambien w/ HS meds. Pt. has slept comfortably through the night w/ no behaviors. Call light in reach. Will continue to monitor.
[2020-06-10 05:46] VITALS: BP 155/70
[2020-06-10] MEDS: INSULIN LISPRO 300 UNITS/3 ML VIAL. SQ SCH ×3 (08:00→18:15)
[2020-06-10] MEDS: ATORVASTATIN CALCIUM 20 MG TABLET PO SCH (08:33)
[2020-06-10] MEDS: ASPIRIN CHEWABLE 81 MG TABLET. PO SCH (08:33)
[2020-06-10] MEDS: SERTRALINE 25 MG TABLET. PO SCH (08:33)
[2020-06-10] MEDS: amLODIPine BESYLATE 10 MG TABLET PO SCH (08:33)
[2020-06-10] MEDS: buPROPion XL 300 MG TAB.ER.24H. PO SCH (08:34)
[2020-06-10] MEDS: LEVOTHYROXINE 88 MCG TABLET PO SCH (08:34)
[2020-06-10 11:03] VITALS: BP 152/67
[2020-06-10 15:00] VITALS: BP 151/67
--- NOTE | 2020-06-10 18:30 | PN ---
DATE: 06/10/2020 ATTENDING PHYSICIAN: Dr. Gr. SUBJECTIVE: Less nauseated today, still not much of an appetite. Her affect is a little better. No further vomiting or diarrhea. OBJECTIVE FINDINGS: VITAL SIGNS: Blood pressure today is 152/67 mmHg, pulse is 65 and regular, temperature 98.5 degrees Fahrenheit, oxygen saturation 95% on 2 liters of supplemental oxygen by nasal cannula. HEENT: Head is without trauma. Pupils are reactive. Sclerae nonicteric. Oropharynx clear. NECK: Supple. LUNGS: Good breath sounds. CARDIOVASCULAR: Showed regular heart tones. No gallops. ABDOMEN: Soft, scaphoid, nontender. No organomegaly. Normal bowel sounds. EXTREMITIES: Showed no cyanosis or edema. NEUROLOGIC: Speech is fluent. Affect is less flat. SKIN: Warm and dry. LABORATORY DATA: Creatinine yesterday was 1.6 mg/dL. ASSESSMENT: 1. A 74-year-old female with COVID-19 positive report. She is asymptomatic. She was [facility]. 2. Essential hypertension. 3. Hyperlipidemia. 4. Short-term memory loss. 5. Type 2 diabetes. 6. Situational depression at being under quarantine. PLAN: 1. Continue meds as ordered. 2. Diet as tolerated. 3. She was re-swabbed yesterday. Await results of next COVID-19 swab. 4. Encouragement regarding discharge date next week. KENIA RUBIN MD DR: MILES/antonia JOB#: [id number] / [id number]
[2020-06-10 19:49] VITALS: BP 171/78
[2020-06-10] MEDS: traZODone 50 MG TABLET. PO SCH (19:57)
[2020-06-10] MEDS: ENOXAPARIN 40 MG/0.4 ML SYRINGE. SQ SCH (19:57)
[2020-06-10] MEDS: ZOLPIDEM 5 MG TABLET. PO PRN (19:57)
[2020-06-10] MEDS: ACETAMINOPHEN 325 MG TABLET PO PRN (19:57)
[2020-06-10 23:08] VITALS: BP 152/74
--- NOTE | 2020-06-11 03:26 | NUR ---
Pt. was calm and cooperative during assessment. Pt received PRN Ambien w/ HS meds. Pt also given PRN Tylenol for c/o lower back pain. Pt's re-swab for COVID is positive and pt is to remain in contact and airborne isolation. Pt. has slept comfortably through the night w/ no behaviors. Call light in reach. Will continue to monitor.
[2020-06-11 05:38] VITALS: BP 170/55
[2020-06-11] MEDS: INSULIN LISPRO 300 UNITS/3 ML VIAL. SQ SCH ×2 (08:00→20:16)
[2020-06-11] MEDS: SERTRALINE 25 MG TABLET. PO SCH (09:08)
[2020-06-11] MEDS: LEVOTHYROXINE 88 MCG TABLET PO SCH (09:08)
[2020-06-11] MEDS: buPROPion XL 300 MG TAB.ER.24H. PO SCH (09:08)
[2020-06-11] MEDS: ATORVASTATIN CALCIUM 20 MG TABLET PO SCH (09:08)
[2020-06-11] MEDS: amLODIPine BESYLATE 10 MG TABLET PO SCH (09:08)
[2020-06-11] MEDS: ASPIRIN CHEWABLE 81 MG TABLET. PO SCH (09:08)
[2020-06-11 10:38] VITALS: BP 151/68
--- NOTE | 2020-06-11 11:07 | NUR ---
SW attempted to contact pt son to inform him of pt 2nd test results. SW informed pt son in the message that SW will call him again on Sunday to follow-up on next steps and to discuss the denials for placement and discuss extending the search area for pt.
--- NOTE | 2020-06-11 13:34 | PN ---
DATE: 06/11/2020 ATTENDING PHYSICIAN: Dr. Gr. SUBJECTIVE: Still a flat affect. She is not very happy being cooped up in a room, complaining of mild nausea, not much of an appetite. OBJECTIVE FINDINGS: VITAL SIGNS: Blood pressure today is 151/68 mmHg, pulse 61 and regular, temperature 97.9 degrees Fahrenheit, oxygen saturation 98% on 2 liters by nasal cannula. HEENT: Head is without trauma. Pupils are reactive. Sclerae nonicteric. Oropharynx clear. NECK: Supple, no bruits. LUNGS: Otherwise clear. CARDIOVASCULAR: Showed regular heart tones. ABDOMEN: Soft. EXTREMITIES: Showed no evidence of cyanosis or edema. NEUROLOGIC: Focally intact. Speech is fluent. SKIN: Warm and dry. ASSESSMENT: 1. A 74-year-old female with COVID-19 positive swab. She is asymptomatic. 2. Essential hypertension. 3. Situational depression. 4. Type 2 diabetes. 5. Hyperlipidemia. 6. Short-term memory loss. PLAN: 1. We will cut back her frequency of the Accu-Chek, as she has had a fairly good sugars. She is not eating that much. 2. Await results of repeat COVID-19 swab. 3. Encouragement regarding eventual plans for discharge home when her swabs are negative. KENIA RUBIN MD DR: MILES/antonia JOB#: [id number] / [id number]
[2020-06-11 14:59] VITALS: BP 148/61
--- NOTE | 2020-06-11 15:17 | NUR ---
PATIENT WAS CALM AND COOPERATIVE THIS AM UPON ASSESSMENT AND MEDS ADMINISTRATION, PT HAD DISCUSSION WITH THIS RN ABOUT HER SECOND COVID TEST IS BACK POSITIVE, PATIENT STATED THAT SHE IS DISAPPOINTED THAT SHE CAN'T GO HOME YET . PATIENT STATED SHE DOES NOT HAVE MUCH OF THE APPETITE TODAY. BLOOD GLUCOSE CHECKED AND WITHIN NORMAL LEVEL. WILL CONTINUE TO MONITOR.
[2020-06-11] MEDS ORDERED: INSULIN LISPRO 300 UNITS/3 ML VIAL. SQ SCH (17:00)
[2020-06-11 19:00] VITALS: BP 170/70
[2020-06-11] MEDS: ENOXAPARIN 40 MG/0.4 ML SYRINGE. SQ SCH (20:14)
[2020-06-11] MEDS: traZODone 50 MG TABLET. PO SCH (20:15)
[2020-06-11 22:20] VITALS: BP 166/77
[2020-06-11] MEDS: ZOLPIDEM 5 MG TABLET. PO PRN (22:38)
[2020-06-12 05:34] VITALS: BP 162/78
[2020-06-12] MEDS: amLODIPine BESYLATE 10 MG TABLET PO SCH (08:21)
[2020-06-12] MEDS: ATORVASTATIN CALCIUM 20 MG TABLET PO SCH (08:21)
[2020-06-12] MEDS: buPROPion XL 300 MG TAB.ER.24H. PO SCH (08:21)
[2020-06-12] MEDS: SERTRALINE 25 MG TABLET. PO SCH (08:21)
[2020-06-12] MEDS: ASPIRIN CHEWABLE 81 MG TABLET. PO SCH (08:21)
[2020-06-12] MEDS: INSULIN LISPRO 300 UNITS/3 ML VIAL. SQ SCH ×2 (08:22→20:00)
[2020-06-12] MEDS: LEVOTHYROXINE 88 MCG TABLET PO SCH (08:22)
[2020-06-12 11:01] VITALS: BP 151/67
[2020-06-12 16:08] VITALS: BP 160/78
[2020-06-12] MEDS: ONDANSETRON ODT 4 MG TAB.RAPDIS PO PRN (18:18)
[2020-06-12 19:30] VITALS: BP 158/74
[2020-06-12] MEDS: traZODone 50 MG TABLET. PO SCH (19:59)
[2020-06-12] MEDS: ENOXAPARIN 40 MG/0.4 ML SYRINGE. SQ SCH (20:00)
[2020-06-12] MEDS: ZOLPIDEM 5 MG TABLET. PO PRN (20:00)
--- NOTE | 2020-06-12 22:09 | NUR ---
Pt. was calm and cooperative during assessment. Pt received PRN Ambien w/ HS meds. Pt also given PRN Lortab for c/o lower back pain at 2200. No agitation. Patient is currently laying in bed awake, appears comfortable. Call light in reach. Will continue to monitor. Addendum: 06/12/20 at 2213 by OSMAR DORMAN RN RN charted pain med administration on wrong patient. This patient only received PRN Ambien at HS.
[2020-06-12] MEDS: traZODone 50 MG TABLET. PO PRN (22:23)
[2020-06-12 22:41] VITALS: BP 164/70
[2020-06-13 05:30] VITALS: BP 143/62
[2020-06-13] MEDS: INSULIN LISPRO 300 UNITS/3 ML VIAL. SQ SCH ×2 (07:55→20:09)
[2020-06-13] MEDS: buPROPion XL 300 MG TAB.ER.24H. PO SCH (08:44)
[2020-06-13] MEDS: amLODIPine BESYLATE 10 MG TABLET PO SCH (08:44)
[2020-06-13] MEDS: ASPIRIN CHEWABLE 81 MG TABLET. PO SCH (08:44)
[2020-06-13] MEDS: ATORVASTATIN CALCIUM 20 MG TABLET PO SCH (08:45)
[2020-06-13] MEDS: SERTRALINE 25 MG TABLET. PO SCH (08:45)
--- NOTE | 2020-06-13 10:05 | PN ---
DATE: 06/12/2020 ATTENDING PHYSICIANS: Dr. Gr and Dr. Rubin. SUBJECTIVE: The patient is slowly, but coming to remotely operated vehicle with reality. She tells me that the last month had been horrible for her. She found out earlier this month that her filed for divorce after so many years. There is another woman involved. She was sent here because of memory issues. She [facility] and 3 days later, she tested positive for COVID-19 coronavirus. She is asymptomatic. She just recently being locked without any place to go. I understand her fully and I commiserated with her. OBJECTIVE FINDINGS: VITAL SIGNS: Today, her blood pressure is 150/67, pulse is 64 and regular, oxygen saturation 96% on 2 liters by nasal cannula and her temperature is 97.7 degrees Fahrenheit. HEENT: Head is without trauma. Pupils are reactive. Sclerae nonicteric. Oropharynx is clear. NECK: Supple. LUNGS: Otherwise clear to auscultation. CARDIOVASCULAR: Showed regular heart tones. No gallops. ABDOMEN: Soft, scaphoid, nontender. EXTREMITIES: Showed no cyanosis or edema. NEUROLOGIC: Focally intact. Speech is fluent. Affect is slightly more improved. SKIN: Warm and dry. ASSESSMENT: 1. A 74-year-old female with COVID-19 positive swabs. She is asymptomatic. 2. Essential hypertension. 3. Situational depression over recent filing for divorce, as well as being in quarantine for COVID-19 coronavirus. 4. Type 2 diabetes. 5. Hyperlipidemia. 6. Short-term memory loss. PLAN: 1. We will monitor her sugars. 2. Await results of repeat COVID-19 swab. 3. Encouragements looking for a target days where she can be discharged. KENIA RUBIN MD DR: MILES/antonia JOB#: [id number] / [id number]
[2020-06-13 11:00] VITALS: BP 151/70
--- NOTE | 2020-06-13 11:25 | PN ---
DATE: 06/13/2020 ATTENDING PHYSICIANS: Dr. Gr and Dr. Rubin. SUBJECTIVE: The patient is active. She went and took a shower independently. Her memory is improved. She is asymptomatic. She wants to go home. OBJECTIVE FINDINGS: VITAL SIGNS: Blood pressure today is 143/62 mmHg, pulse 63 and regular, temperature 98.4 degrees Fahrenheit, oxygen saturation 96% on 2 liters of nasal cannula. HEENT: Head is without trauma. Pupils are reactive. Sclerae nonicteric. Oropharynx clear. NECK: Supple, no bruits. LUNGS: Clear. CARDIOVASCULAR: Showed regular heart tones. Peripheral pulses are palpable and full. ABDOMEN: Soft, scaphoid, nontender, no organomegaly. Bowel sounds were normoactive. EXTREMITIES: Showed no cyanosis or edema. NEUROLOGIC: Focally intact. SKIN: Warm and dry. ASSESSMENT: 1. A 74-year-old female with COVID-19 positive swabs. She remains asymptomatic. 2. Essential hypertension, normotensive. 3. Situational depression over recent filing for divorce and being in quarantine for COVID-19 coronavirus. 4. Type 2 diabetes. 5. Hyperlipidemia. 6. Short-term memory loss. PLAN: 1. Diet as tolerated. 2. Re-swab COVID-19 when appropriate. 3. Discharge planning underway in next week. KENIA RUBIN MD DR: MILES/antonia JOB#: [id number] / [id number]
[2020-06-13 15:50] VITALS: BP 162/72
[2020-06-13 19:26] VITALS: BP 159/67
[2020-06-13] MEDS: traZODone 50 MG TABLET. PO SCH (20:08)
[2020-06-13] MEDS: ACETAMINOPHEN 325 MG TABLET PO PRN (20:09)
[2020-06-13] MEDS: ZOLPIDEM 5 MG TABLET. PO PRN (20:09)
[2020-06-13] MEDS: ENOXAPARIN 40 MG/0.4 ML SYRINGE. SQ SCH (20:09)
[2020-06-13] MEDS: ONDANSETRON ODT 4 MG TAB.RAPDIS PO PRN (21:01)
[2020-06-13 22:42] VITALS: BP 158/81
[2020-06-14] MEDS: LEVOTHYROXINE 88 MCG TABLET PO SCH (05:28)
[2020-06-14 05:37] VITALS: BP 156/67
[2020-06-14] MEDS: INSULIN LISPRO 300 UNITS/3 ML VIAL. SQ SCH ×2 (07:42→20:48)
[2020-06-14] MEDS: amLODIPine BESYLATE 10 MG TABLET PO SCH (07:43)
[2020-06-14] MEDS: SERTRALINE 25 MG TABLET. PO SCH (07:43)
[2020-06-14] MEDS: ATORVASTATIN CALCIUM 20 MG TABLET PO SCH (07:43)
[2020-06-14] MEDS: ASPIRIN CHEWABLE 81 MG TABLET. PO SCH (07:43)
[2020-06-14] MEDS: buPROPion XL 300 MG TAB.ER.24H. PO SCH (07:45)
[2020-06-14 10:23] VITALS: BP 171/78
--- NOTE | 2020-06-14 13:20 | PN ---
DATE: 06/14/2020 ATTENDING PHYSICIAN: Dr. Gr and Dr. Rubin. SUBJECTIVE: The patient is more interactive today. She really wants to go home, but because of her social situation, the filing for divorce, it is determined by patient and family she would go to a facility. OBJECTIVE FINDINGS: VITAL SIGNS: Blood pressure today is 156/67, pulse is 58 and regular, temperature 97.8 degrees Fahrenheit, oxygen saturation 96% on 2 liters of supplemental oxygen by nasal cannula. HEENT: Head is without trauma. Pupils are reactive. Sclerae nonicteric. Oropharynx clear. NECK: Supple, no bruits. LUNGS: Good breath sounds. CARDIOVASCULAR: Showed regular heart tones. ABDOMEN: Soft. EXTREMITIES: Showed no cyanosis or edema. NEUROLOGIC: Focally intact. SKIN: Warm and dry. ASSESSMENT: 1. A 74-year-old female with COVID-19 positive swab. She remains asymptomatic. 2. Hypertension, currently normotensive. 3. Situational depression regarding recent divorce and being in quarantine for COVID-19 coronavirus. 4. Type 2 diabetes. 5. Hyperlipidemia. 6. Short-term memory loss. PLAN: Re-swab COVID-19 when appropriate. If she is going to a facility, she will need negative swabs. Discharge planning this week. KENIA RUBIN MD DR: MILES/antonia JOB#: [id number] / [id number]
[2020-06-14 14:41] VITALS: BP 156/71
[2020-06-14 19:00] VITALS: BP 167/71
--- NOTE | 2020-06-14 20:00 | NUR ---
Pt. was calm and cooperative during assessment. Pt. had complaints of lower back pain and received PRN Lortab as indicated w/ HS meds. Pt's POC was discussed w/ pt. Pt appeared to have better mood regarding upcoming plans for discharge. Pt. tolerated HS meds well and received a snack before bed. Pt. is now resting comfortably w/ call light in reach.
[2020-06-14] MEDS: traZODone 50 MG TABLET. PO SCH (20:34)
[2020-06-14] MEDS: ENOXAPARIN 40 MG/0.4 ML SYRINGE. SQ SCH (20:34)
[2020-06-14] MEDS: ACETAMINOPHEN 325 MG TABLET PO PRN (20:34)
[2020-06-14] MEDS: ZOLPIDEM 5 MG TABLET. PO PRN (20:34)
[2020-06-14 23:08] VITALS: BP 141/61
[2020-06-15] MEDS: LEVOTHYROXINE 88 MCG TABLET PO SCH (05:40)
[2020-06-15 05:49] VITALS: BP 152/90
[2020-06-15] MEDS: INSULIN LISPRO 300 UNITS/3 ML VIAL. SQ SCH ×2 (09:00→21:00)
[2020-06-15 10:09] VITALS: BP 160/62
[2020-06-15] MEDS: ATORVASTATIN CALCIUM 20 MG TABLET PO SCH (10:17)
[2020-06-15] MEDS: buPROPion XL 300 MG TAB.ER.24H. PO SCH (10:17)
[2020-06-15] MEDS: amLODIPine BESYLATE 10 MG TABLET PO SCH (10:17)
[2020-06-15] MEDS: ASPIRIN CHEWABLE 81 MG TABLET. PO SCH (10:17)
[2020-06-15] MEDS: SERTRALINE 25 MG TABLET. PO SCH (10:17)
--- NOTE | 2020-06-15 10:38 | PN ---
DATE: 06/15/2020 ATTENDING PHYSICIAN: Dr. Rubin and Dr. Gr. SUBJECTIVE: Little bit nauseated today. Appetite is fair. She really wants to go home, but there is no home to go to. Evidently, her family wants her at a [facility] situation. OBJECTIVE FINDINGS: VITAL SIGNS: Blood pressure today is 152/90, pulse is 64 and regular, temperature 97.5 degrees Fahrenheit, oxygen saturation 95% on 2 liters of nasal cannula. HEENT: Head is without trauma. The pupils are reactive. Sclerae nonicteric. Oropharynx clear. NECK: Supple, no bruits. LUNGS: Clear with good breath sounds. CARDIOVASCULAR: Showed regular heart tones. No gallops, no murmurs. ABDOMEN: Soft, nontender. EXTREMITIES: Showed no edema or cyanosis. NEUROLOGIC: Focally intact. Speech is fluent. SKIN: Warm and dry. ASSESSMENT: 1. A 74-year-old female with COVID-19 positive swabs. She is asymptomatic. 2. Essential hypertension. 3. Situational depression. 4. Type 2 diabetes. 5. Hyperlipidemia. 6. Short-term memory loss. PLAN: 1. Re-swab COVID-19 when appropriate. 2. Discharge planning for next week. KENIA RUBIN MD DR: MILES/antonia JOB#: [id number] / [id number]
[2020-06-15 14:56] VITALS: BP 154/70
--- NOTE | 2020-06-15 15:43 | NUR ---
Patient has been preoccupied with calling her son and her discharge planning; she has asked multiple times for help with calling him. Patient's son had previously stated he does not want to talk to her today. Informed patient that her son is busy and is unable to talk to her. Will continue to monitor.
[2020-06-15 19:19] VITALS: BP 158/69
[2020-06-15] MEDS: ENOXAPARIN 40 MG/0.4 ML SYRINGE. SQ SCH (20:19)
[2020-06-15] MEDS: ZOLPIDEM 5 MG TABLET. PO PRN (20:19)
[2020-06-15] MEDS: ACETAMINOPHEN 325 MG TABLET PO PRN (20:19)
[2020-06-15] MEDS: traZODone 50 MG TABLET. PO SCH (20:19)
[2020-06-15] MEDS: ONDANSETRON ODT 4 MG TAB.RAPDIS PO PRN (20:34)
[2020-06-15 22:58] VITALS: BP 157/68
[2020-06-16] MEDS: LEVOTHYROXINE 88 MCG TABLET PO SCH (05:13)
[2020-06-16 05:50] VITALS: BP 173/68
[2020-06-16] MEDS: SERTRALINE 25 MG TABLET. PO SCH (08:33)
[2020-06-16] MEDS: buPROPion XL 300 MG TAB.ER.24H. PO SCH (08:34)
[2020-06-16] MEDS: ACETAMINOPHEN 325 MG TABLET PO PRN (08:34)
[2020-06-16] MEDS: ATORVASTATIN CALCIUM 20 MG TABLET PO SCH (08:34)
[2020-06-16] MEDS: ASPIRIN CHEWABLE 81 MG TABLET. PO SCH (08:34)
[2020-06-16] MEDS: amLODIPine BESYLATE 10 MG TABLET PO SCH (08:34)
[2020-06-16] MEDS: INSULIN LISPRO 300 UNITS/3 ML VIAL. SQ SCH ×2 (09:00→20:11)
[2020-06-16 10:34] VITALS: BP 149/76
[2020-06-16] MEDS: ONDANSETRON ODT 4 MG TAB.RAPDIS PO PRN (18:09)
--- NOTE | 2020-06-16 18:30 | NUR ---
Patient has been calm, compliant and withdrawn most of this shift. She has had continued complaints of nausea since late morning, but denied interventions until after supper when prn medication was provided per eMAR. Will continue to monitor and report to oncoming shift.
--- NOTE | 2020-06-16 19:23 | PN ---
DATE: 06/16/2020 SUBJECTIVE: The patient is resting, slightly propped up in bed, in no apparent respiratory distress, awake, alert. On questioning her, she denied any complaint. The nursing staff did not voice any concern and stated that she had an uneventful night. PHYSICAL EXAMINATION: GENERAL: When I examined her, she looked pale, not jaundiced, cyanosed or thyromegaly. No jugular venous distention. No limb edema. VITAL SIGNS: Her heart rate was 58, blood pressure was 149/76, temperature 96.3, respiratory rate was 18 and oxygen saturation was 96% on 2 liters of oxygen. HEENT: Showed normocephalic, atraumatic. NECK: Supple. HEART: Showed normal first and second heart sounds. No gallop or murmur. CHEST: Clear to auscultation. No crepitation or rhonchi. ABDOMEN: Scaphoid, soft, nontender. NEUROLOGIC: She is grossly intact. Her intake was 914, output not recorded. LABORATORY DATA: Her most recent lab work done was on 06/09, showed a white cell count 4100, hemoglobin 12, hematocrit 36, MCV 89, and platelet count of 182,000. Her chemistry showed a serum sodium 138, potassium 3.5, chloride 100, bicarbonate 34, anion gap of 4, BUN 16, creatinine 1.6, estimated GFR was 32 mL per minute. Her glucose was 79, calcium was 8.4. Total bilirubin, AST, ALT, alkaline phosphatase were normal. Total protein was 5.8, albumin 2.7. Her D-dimer was 0.95 mg/dL. She was tested positive for coronavirus by PCR on 06/09. ASSESSMENT: 1. A 74-year-old female with COVID positive swabs. She is asymptomatic. 2. Essential hypertension. 3. Type 2 diabetes mellitus. 4. Hyperlipidemia. 5. Short-term memory loss. PLAN: Obviously to re-swab her as recommended by the Department of Health and will be discharged once she is testing negative. BOOM BILL MD DR: ELIAZAR/antonia JOB#: [id number] / [id number]
[2020-06-16 20:01] VITALS: BP 151/80
[2020-06-16] MEDS: ENOXAPARIN 40 MG/0.4 ML SYRINGE. SQ SCH (20:11)
[2020-06-16] MEDS: ZOLPIDEM 5 MG TABLET. PO PRN (20:11)
[2020-06-16] MEDS: traZODone 50 MG TABLET. PO SCH (20:11)
[2020-06-17] MEDS: traZODone 50 MG TABLET. PO PRN (02:21)
[2020-06-17] MEDS: LEVOTHYROXINE 88 MCG TABLET PO SCH (05:39)
--- NOTE | 2020-06-17 05:43 | NUR ---
PT with insomnia this PM. Given trazodone x2, Ambien x1. PT able to sleep afterwards.
[2020-06-17] MEDS: ASPIRIN CHEWABLE 81 MG TABLET. PO SCH (07:50)
[2020-06-17] MEDS: ACETAMINOPHEN 325 MG TABLET PO PRN (07:50)
[2020-06-17] MEDS: ATORVASTATIN CALCIUM 20 MG TABLET PO SCH (07:50)
[2020-06-17] MEDS: amLODIPine BESYLATE 10 MG TABLET PO SCH (07:51)
[2020-06-17] MEDS: buPROPion XL 300 MG TAB.ER.24H. PO SCH (07:52)
[2020-06-17] MEDS: SERTRALINE 25 MG TABLET. PO SCH (07:52)
[2020-06-17 08:22] VITALS: BP 164/78
[2020-06-17] MEDS: INSULIN LISPRO 300 UNITS/3 ML VIAL. SQ SCH ×2 (09:00→20:06)
--- NOTE | 2020-06-17 15:18 | NUR ---
[facility] received call from pt son, who reports that he has a place for pt in [place] and they would just like to get a referral packet from [facility]. The [facility] will hold the bed for her as pt son has started the HCBS waiver and pt will need to have a negative covoid swab. [facility] will send the referral packet and will update all parties.
--- NOTE | 2020-06-17 19:13 | PN ---
DATE: 06/17/2020 SUBJECTIVE: The patient is resting flat, sleeping comfortably in bed, in no apparent distress. On questioning her, she denied any complaints, in particular denied any chest pain, shortness of breath, cough, phlegm. Denied any chills, rigors or fever. PHYSICAL EXAMINATION: GENERAL: When I examined her, she looked somewhat pale, but no jaundice, cyanosis or thyromegaly. No jugular venous distention or limb edema. VITAL SIGNS: Her heart rate was 66, blood pressure was 164/78, temperature 98, respiratory rate was 18 and oxygen saturation was 93% on 2 liters of oxygen. HEAD, EYES, EARS, NOSE AND THROAT: Showed normocephalic, atraumatic. NECK: Supple. CARDIAC: Normal first and second heart sounds. No gallop or murmur. CHEST: Clear to auscultation. No crepitation or rhonchi. ABDOMEN: Scaphoid, soft, nontender. NEUROLOGIC: She is grossly intact. Her intake was 720, no output was recorded. No lab work was done today; however, her most recent hemoglobin was 12, hematocrit 35, normal white cell count and platelets. Her most recent chemistry was also unremarkable with normal liver enzymes. ASSESSMENT: 1. A 74-year-old female with COVID positive swab. She is asymptomatic. 2. Essential hypertension. 3. Type 2 diabetes mellitus. 4. Hyperlipidemia. 5. Short-term memory loss. PLAN: The patient was swabbed today, again for COVID by PCR, and obviously, if the arrangement is made by her family for her to go to her own apartment, she might probably go home sooner. However, if she has to go to a senior care facility, she probably has at least 1 or 2 negative tests. BOOM BILL MD DR: ELIAZAR/antonia JOB#: [id number] / [id number]
[2020-06-17 19:30] VITALS: BP 169/64
[2020-06-17] MEDS: traZODone 50 MG TABLET. PO SCH (20:06)
[2020-06-17] MEDS: ENOXAPARIN 40 MG/0.4 ML SYRINGE. SQ SCH (20:06)
[2020-06-17] MEDS: ZOLPIDEM 5 MG TABLET. PO PRN (20:06)
[2020-06-18] MEDS: LEVOTHYROXINE 88 MCG TABLET PO SCH (05:47)
[2020-06-18 08:09] VITALS: BP 157/73
[2020-06-18] MEDS: SERTRALINE 25 MG TABLET. PO SCH (08:26)
[2020-06-18] MEDS: ASPIRIN CHEWABLE 81 MG TABLET. PO SCH (08:26)
[2020-06-18] MEDS: buPROPion XL 300 MG TAB.ER.24H. PO SCH (08:27)
[2020-06-18] MEDS: INSULIN LISPRO 300 UNITS/3 ML VIAL. SQ SCH ×2 (08:27→20:25)
[2020-06-18] MEDS: ATORVASTATIN CALCIUM 20 MG TABLET PO SCH (08:27)
[2020-06-18] MEDS: amLODIPine BESYLATE 10 MG TABLET PO SCH (08:27)
[2020-06-18] MEDS: ONDANSETRON ODT 4 MG TAB.RAPDIS PO PRN (08:32)
--- NOTE | 2020-06-18 17:59 | NUR ---
Patient is alert and oriented, had complaints of nausea this morning with vomit x1 after breakfast. Pt given zofran which helped. Pt able to tolerated ensure for lunch and dinner and felt like eating "light" the rest of the day. Pt states that her daughter has an apartment for her to go to when she is discharged, pts son is DPOA and nurses understanding is that son is not aware of an apartment and the plan is to go to a facility. Pt was hoping to be discharged soon. RN informed patient that she was still COVID positive. Pt very upset, expressing hopelessness and stating, "i might as well because Im never going to get out of this place!" Pt states that she will not take her own life, does not have a plan and believes that suicide is a sin and she doesn't want to go to hell. Pt states, that she is frustrated that she isn't able to visit with her family and is so secluded. RN provided emotional support, pt appreciative. VENU
[2020-06-18 19:36] VITALS: BP 180/79
[2020-06-18] MEDS: ENOXAPARIN 40 MG/0.4 ML SYRINGE. SQ SCH (20:25)
[2020-06-18] MEDS: traZODone 50 MG TABLET. PO SCH (20:25)
--- NOTE | 2020-06-18 20:50 | PN ---
DATE: 06/18/2020 SUBJECTIVE: The patient is a 74-year-old female patient who is here as a transfer from [facility] as her COVID test was positive. She remained asymptomatic, although she did complain of some nausea and vomiting this morning that has responded to Zofran. PHYSICAL EXAMINATION: GENERAL: When I examined her this afternoon, she was resting flat, comfortably in bed, in no apparent respiratory distress, slightly pale, but no jaundice, cyanosis or thyromegaly. No jugular venous distention. No lower limb edema. VITAL SIGNS: Her heart rate was 66, blood pressure was 157/73, temperature was 98.7, respiratory rate 20, and oxygen saturation was 97%. HEAD, EYES, EARS, NOSE AND THROAT: Showed normocephalic, atraumatic. NECK: Supple. HEART: Showed normal first and second heart sounds. No gallop or murmur. CHEST: Clear to auscultation. No crepitation or rhonchi. ABDOMEN: Scaphoid, soft, nontender. NEUROLOGIC: She was grossly intact. Her intake over the last 24 hours was 720, no output was recorded. LABORATORY DATA: No lab work is available. ASSESSMENT: A 74-year-old female with COVID positive. She is asymptomatic; however, unfortunately, her swab for her coronavirus-2 PCR was again detected on the swab done yesterday. Other medical problems include: 1. Essential hypertension. 2. Type 2 diabetes mellitus. 3. Hyperlipidemia. 4. Short-term memory loss. PLAN: To continue with all her medications. She is now positive twice and she has 3 consecutive positive COVID-19 by PCR, one on the 15th, one on the nd and third was on the 30th yesterday. She truly is going to her own apartment, I think, whether she is positive or negative is immaterial, but obviously that remains to be seen. I will order some lab work for tomorrow. BOOM BILL MD DR: ELIAZAR/antonia JOB#: [id number] / [id number]
[2020-06-18] MEDS: ZOLPIDEM 5 MG TABLET. PO PRN (21:08)
[2020-06-18 22:47] VITALS: BP 151/72
--- NOTE | 2020-06-18 22:50 | NUR ---
pt dropped her call light and phone on the floor. pt tried to reach for them by herself and fell out of bed. VSS. pt was a&o after incident pt was able to tell us what happened. pt has no complaints of pain. pt did receive a skin tear to her right forearm. area is open to air and not bleeding. pts GERARD was called at [phone] but there was no answer. pts was also called at [phone] with no answer. will continue trying to contact GERARD and in pts room call light clipped to bedside rail and in bed with pt, phone has been put away for the evening and bed alarm in place so staff can help pt out of bed tonight.
--- NOTE | 2020-06-19 04:21 | NUR ---
covid 19 swab done on 06-17-20 came back positive
[2020-06-19] MEDS: LEVOTHYROXINE 88 MCG TABLET PO SCH (05:18)
[2020-06-19 06:24] LABS: HEMATOCRIT 35.2 % (36.0-47.0); RED BLOOD COUNT 3.99 x10^6/uL (3.50-5.40); RED CELL DISTRIBUTION WIDTH 13.2 % (11.5-14.5); WHITE BLOOD COUNT 8.1 x10^3/uL (4.0-11.0)
[2020-06-19 06:51] LABS: ALBUMIN 3.1 g/dL (3.4-5.0); CREATININE 1.6 mg/dL (0.6-1.0); GFR 31.7; POTASSIUM 3.5 mmol/L (3.5-5.1); TOTAL BILIRUBIN 0.5 mg/dL (0.2-1.0); TOTAL PROTEIN 6.2 g/dL (6.4-8.2)
[2020-06-19 08:00] VITALS: BP 155/64
[2020-06-19] MEDS: buPROPion XL 300 MG TAB.ER.24H. PO SCH (08:30)
[2020-06-19] MEDS: SERTRALINE 25 MG TABLET. PO SCH (08:30)
[2020-06-19] MEDS: ASPIRIN CHEWABLE 81 MG TABLET. PO SCH (08:31)
[2020-06-19] MEDS: amLODIPine BESYLATE 10 MG TABLET PO SCH (08:31)
[2020-06-19] MEDS: ATORVASTATIN CALCIUM 20 MG TABLET PO SCH (08:31)
[2020-06-19] MEDS: INSULIN LISPRO 300 UNITS/3 ML VIAL. SQ SCH ×2 (09:00→21:00)
[2020-06-19] MEDS: ACETAMINOPHEN 325 MG TABLET PO PRN (15:27)
[2020-06-19] MEDS: ONDANSETRON ODT 4 MG TAB.RAPDIS PO PRN (15:29)
--- NOTE | 2020-06-19 19:03 | PN ---
DATE: 06/19/2020 SUBJECTIVE: The patient is unfortunately very depressed today as her coronavirus by PCR was detected again yesterday; however, she continued to be otherwise asymptomatic. She is afebrile, hemodynamically stable. Denied any chest pain or shortness of breath. PHYSICAL EXAMINATION: GENERAL: When I examined her, she looked well and was clearly in no apparent respiratory distress. No pallor, jaundice, cyanosis or thyromegaly. No jugular venous distention. No limb edema. VITAL SIGNS: Her heart rate was 65, blood pressure was 155/64, temperature was 98, respiratory rate was 20, and oxygen saturation was 94%. HEENT: normocephalic, atraumatic. NECK: Supple. HEART: Showed normal first and second heart sounds. No gallop, rub or murmur. CHEST: Clear to auscultation. No crepitation or rhonchi. ABDOMEN: Distended, soft, nontender. NEUROLOGIC: She is awake, alert, responding appropriately. All cranial nerves are intact. Moves extremities without difficulty. Her intake over the last 24 hours was 650, no output was recorded. LABORATORY DATA: As of this morning showed a white cell count of 8100, hemoglobin 12, hematocrit 35, MCV 88 and platelet count 293,000. Her serum sodium was 138. Her potassium is 3.5, chloride 100, bicarbonate 33, anion gap of 5, BUN 22, creatinine 1.6, estimated GFR was 32 mL per minute. Her glucose was 95, calcium was 9. Total bilirubin, AST, ALT, alkaline phosphatase were normal. Total protein was 6.2, albumin was 3.1. Her COVID test by PCR was detectable again. ASSESSMENT: 1. This is a 74-year-old female who was COVID positive for the second time. She is asymptomatic. 2. Essential hypertension. 3. Type 2 diabetes mellitus. 4. Hyperlipidemia. 5. Chronic kidney disease. 6. Short-term memory loss. PLAN: To continue with all her other medications. Unfortunately, she has been positive for COVID-19 by PCR for the third time on the 06/02, 06/09 and 06/17; however, if she is truly going to her own apartment, I think whether she is positive or negative is immaterial, obviously that remains to be seen. BOOM BILL MD DR: ELIAZAR/antonia JOB#: [id number] / [id number]
[2020-06-19 19:35] VITALS: BP 167/72
[2020-06-19] MEDS: traZODone 50 MG TABLET. PO SCH (21:38)
[2020-06-19] MEDS: ENOXAPARIN 40 MG/0.4 ML SYRINGE. SQ SCH (21:40)
[2020-06-20] MEDS: LEVOTHYROXINE 88 MCG TABLET PO SCH (06:07)
[2020-06-20] MEDS: SERTRALINE 25 MG TABLET. PO SCH (08:32)
[2020-06-20] MEDS: amLODIPine BESYLATE 10 MG TABLET PO SCH (08:33)
[2020-06-20] MEDS: ASPIRIN CHEWABLE 81 MG TABLET. PO SCH (08:33)
[2020-06-20] MEDS: ATORVASTATIN CALCIUM 20 MG TABLET PO SCH (08:35)
[2020-06-20] MEDS: INSULIN LISPRO 300 UNITS/3 ML VIAL. SQ SCH ×2 (08:35→20:04)
[2020-06-20] MEDS: buPROPion XL 300 MG TAB.ER.24H. PO SCH (08:35)
[2020-06-20 09:54] VITALS: BP 156/64
--- NOTE | 2020-06-20 13:38 | PN ---
DATE: SUBJECTIVE: The patient is resting flat, comfortably in bed, in no apparent respiratory distress. Awake, alert, continued to be frustrated. She has been in quarantine now since 06/03/2020; however, she continued to be asymptomatic. PHYSICAL EXAMINATION: GENERAL: When I examined her, she looked somewhat pale, no jaundice, cyanosis or thyromegaly. No jugular venous distention or limb edema. VITAL SIGNS: Her heart rate was 64, blood pressure was 156/64, temperature was 98.2, respiratory rate was 20, and oxygen saturation was 91% on 2 liters of oxygen. HEAD, EYES, EAR, NOSE AND THROAT: Showed normocephalic, atraumatic. NECK: Supple. CARDIAC: Normal first and second heart sounds. No gallop or murmur. CHEST: Clear to auscultation. No crepitation or rhonchi. ABDOMEN: Distended, soft, nontender. NEUROLOGIC: She was grossly intact. LABORATORY DATA: As of yesterday, her white cell count was 8000, hemoglobin 12, hematocrit 35, MCV 88 and platelet count 293,000. Her chemistry showed that her sodium was 138, potassium 3.5, chloride 100, bicarbonate 33, anion gap of 5, BUN 22, creatinine 1.6, estimated GFR was 32 mL per minute. Her glucose was 95, calcium was 9. Total bilirubin, AST, ALT, alkaline phosphatase were normal. Total protein 6.2, albumin 3.1. ASSESSMENT: 1. This is a 74-year-old female, who was COVID positive for the second time. She continued to be completely asymptomatic. 2. Essential hypertension. 3. Type 2 diabetes mellitus. 4. Hyperlipidemia. 5. Chronic kidney disease, stable. 6. Short-term memory loss. PLAN: To continue with all her medications. We will discuss tomorrow with the case technician whether she can be discharged if she truly going to her own apartment. BOOM BILL MD DR: ELIAZAR/antonia JOB#: [id number] / [id number]
--- NOTE | 2020-06-20 13:55 | NUR ---
Patient in room in bed at shift change. Patient complained of nausea and given anam bay. Patient had poor appetite and ate only her cereal. Patient denied pain at this time. Stated she did not sleep well and is upset that her family has not called her yet today. Takes meds whole without difficulty. Will continue to monitor.
[2020-06-20 19:46] VITALS: BP 163/80
[2020-06-20] MEDS: traZODone 50 MG TABLET. PO SCH (20:03)
[2020-06-20] MEDS: ENOXAPARIN 40 MG/0.4 ML SYRINGE. SQ SCH (20:04)
[2020-06-20] MEDS: ZOLPIDEM 5 MG TABLET. PO PRN (21:44)
[2020-06-21] MEDS: LEVOTHYROXINE 88 MCG TABLET PO SCH (05:29)
[2020-06-21] MEDS: ATORVASTATIN CALCIUM 20 MG TABLET PO SCH (07:44)
[2020-06-21] MEDS: ASPIRIN CHEWABLE 81 MG TABLET. PO SCH (07:44)
[2020-06-21] MEDS: SERTRALINE 25 MG TABLET. PO SCH (07:44)
[2020-06-21] MEDS: buPROPion XL 300 MG TAB.ER.24H. PO SCH (07:44)
[2020-06-21] MEDS: INSULIN LISPRO 300 UNITS/3 ML VIAL. SQ SCH ×2 (07:45→21:00)
[2020-06-21] MEDS: amLODIPine BESYLATE 10 MG TABLET PO SCH (07:45)
[2020-06-21 08:37] VITALS: BP 157/82
--- NOTE | 2020-06-21 17:20 | NUR ---
NSG NOTE; AM NAUSEA REPORTED NAUSEA AFTER AWAKENING AND REFUSED BREAKFAST. SAYS SHE JUST DOES NOT FEEL WELL TODAY. ZOFRAN GIVEN WITH GOOD RESULTS-PT FEELING BETTER AND WAS ABLE TO EAT LUNCH AND DINNER WITHOUT DIFFICULTY
--- NOTE | 2020-06-21 19:05 | PN ---
DATE: 06/21/2020 SUBJECTIVE: The patient is resting, slightly propped up in bed, in no apparent respiratory distress. She continued to have occasional episodes of nausea and vomiting that responds well to Zofran. Otherwise, she remains stable, definitely asymptomatic. PHYSICAL EXAMINATION: GENERAL: When I examined her, she looked pale, but not jaundiced, cyanosis from thyromegaly. No jugular venous distention. No limb edema. VITAL SIGNS: Her heart rate was 63, blood pressure 157/82, temperature was 98.4, respiratory rate 20, and oxygen saturation was 98% on 2 liters of oxygen. HEAD, EYES, EARS, NOSE AND THROAT: Showed normocephalic, atraumatic. NECK: Supple. HEART: Showed normal first and second heart sounds. No gallop, rub or murmur. CHEST: Clear to auscultation. No crepitation or rhonchi. ABDOMEN: Distended, soft, nontender. NEUROLOGIC: She is awake, alert, responding appropriately. All cranial nerves are intact. She moves extremities without difficulty. She ambulates without assistance or assistive devices. Her intake over the last 24 hours was 418 and output was recorded. LABORATORY DATA: Her blood sugar seems to be well controlled. Her chemistry is stable. ASSESSMENT: 1. This is a 74-year-old female patient who was COVID positive for the second time. She continued to be completely asymptomatic. 2. Essential hypertension. 3. Type 2 diabetes mellitus, seems to be reasonably controlled. 4. Hyperlipidemia. 5. Chronic kidney disease that is stable. 6. Short-term memory loss. PLAN: To continue with all her medications including her psychotropic medication. Continue with atorvastatin for hyperlipidemia. Continue with levothyroxine for hypothyroidism. Continue with Lovenox for DVT prophylaxis. BOOM BILL MD DR: ELIAZAR/antonia JOB#: [id number] / [id number]
[2020-06-21 19:29] VITALS: BP 165/81
[2020-06-21] MEDS: ENOXAPARIN 40 MG/0.4 ML SYRINGE. SQ SCH (19:49)
[2020-06-21] MEDS: traZODone 50 MG TABLET. PO SCH (19:49)
[2020-06-21] MEDS: ZOLPIDEM 5 MG TABLET. PO PRN (19:49)
[2020-06-21] MEDS: ONDANSETRON ODT 4 MG TAB.RAPDIS PO PRN (20:48)
[2020-06-22] MEDS: LEVOTHYROXINE 88 MCG TABLET PO SCH (05:07)
[2020-06-22 07:36] VITALS: BP 177/77
[2020-06-22] MEDS: INSULIN LISPRO 300 UNITS/3 ML VIAL. SQ SCH ×2 (09:00→20:08)
[2020-06-22] MEDS: amLODIPine BESYLATE 10 MG TABLET PO SCH (09:19)
[2020-06-22] MEDS: ASPIRIN CHEWABLE 81 MG TABLET. PO SCH (09:19)
[2020-06-22] MEDS: ATORVASTATIN CALCIUM 20 MG TABLET PO SCH (09:19)
[2020-06-22] MEDS: SERTRALINE 25 MG TABLET. PO SCH (09:19)
[2020-06-22] MEDS: buPROPion XL 300 MG TAB.ER.24H. PO SCH (09:20)
[2020-06-22 19:13] VITALS: BP 147/66
--- NOTE | 2020-06-22 19:19 | PN ---
DATE: 06/22/2020 SUBJECTIVE: The patient is resting flat, comfortably in bed, in no apparent distress. She continued to be completely asymptomatic. Nursing staff did not voice any concerns as she has been compliant and cooperative with care. PHYSICAL EXAMINATION: GENERAL: When I examined her, she was pale, no jaundice, cyanosis or thyromegaly. No jugular venous distention. No lower limb edema. VITAL SIGNS: Her heart rate was 64, blood pressure was 177/77, temperature was 98, respiratory rate was 18 and oxygen saturation was 94% on 2 liters of oxygen. The rest of clinical exam is stable, has not really changed. Her intake was 510, no output was recorded. LABORATORY DATA: Most recent lab work showed a white cell count of 8000, hemoglobin 12, hematocrit 35, MCV 88 and platelet count 293,000. Her blood sugar has been well controlled. ASSESSMENT: 1. This is a 74-year-old female patient who was COVID positive for second time. She continued to be completely asymptomatic. 2. Essential hypertension. 3. Type 2 diabetes, seems to be reasonably controlled. 4. Hyperlipidemia. 5. Chronic kidney disease that is stable. 6. Short-term memory loss. The patient has continued all her medication including psychotropic medication. Continue with DVT prophylaxis. Continue levothyroxine for hypothyroidism and atorvastatin for hyperlipidemia. The patient claims that her son and daughter arranged for her to have her own apartment and if that is the case, obviously she can be discharged and no need for continued testing for COVID. BOOM BILL MD DR: ELIAZAR/antonia JOB#: [id number] / [id number]
[2020-06-22] MEDS: traZODone 50 MG TABLET. PO SCH (20:07)
[2020-06-22] MEDS: ZOLPIDEM 5 MG TABLET. PO PRN (20:07)
[2020-06-22] MEDS: ENOXAPARIN 40 MG/0.4 ML SYRINGE. SQ SCH (20:08)
[2020-06-23] MEDS: LEVOTHYROXINE 88 MCG TABLET PO SCH (05:22)
[2020-06-23] MEDS: INSULIN LISPRO 300 UNITS/3 ML VIAL. SQ SCH ×2 (07:29→20:09)
[2020-06-23 07:31] VITALS: BP 167/66
[2020-06-23] MEDS: ACETAMINOPHEN 325 MG TABLET PO PRN (08:08)
[2020-06-23] MEDS: ATORVASTATIN CALCIUM 20 MG TABLET PO SCH (08:08)
[2020-06-23] MEDS: SERTRALINE 25 MG TABLET. PO SCH (08:08)
[2020-06-23] MEDS: amLODIPine BESYLATE 10 MG TABLET PO SCH (08:09)
[2020-06-23] MEDS: buPROPion XL 300 MG TAB.ER.24H. PO SCH (08:09)
[2020-06-23] MEDS: ENOXAPARIN 40 MG/0.4 ML SYRINGE. SQ SCH (08:09)
[2020-06-23] MEDS: ASPIRIN CHEWABLE 81 MG TABLET. PO SCH (08:09)
--- NOTE | 2020-06-23 10:18 | PN ---
DATE: 06/23/2020 ATTENDING PHYSICIAN: Dr. Gr and Dr. Rubin. SUBJECTIVE: Comfortable. No new complaints. She has been cooperative, but still remains very despondent and that she cannot live here. She really wants to go home, but the family cannot care for her. OBJECTIVE FINDINGS: VITAL SIGNS: Her blood pressure today is 167/66 mmHg, temperature 97.5 degrees Fahrenheit, pulse 60 and regular, oxygen saturation 95% on 2 liters nasal cannula. HEENT: Head is without trauma. Pupils are reactive. Sclerae nonicteric. Oropharynx clear. NECK: Supple, no bruits. LUNGS: Clear. CARDIOVASCULAR: Showed regular heart tones. No gallops. Peripheral pulses are palpable and full. ABDOMEN: Soft, scaphoid, nontender. EXTREMITIES: Showed no cyanosis or edema. NEUROLOGIC: Focally intact. Speech is fluent. SKIN: Warm and dry. ASSESSMENT: 1. A 74-year-old female with COVID swab positive, for the second time, she remains asymptomatic. 2. Essential hypertension. 3. Type 2 diabetes, controlled. 4. Hyperlipidemia. 5. Chronic kidney disease. 6. Short-term memory loss. PLAN: 1. Continue meds as ordered. 2. If family is not insisting on care home placement. She can be discharged home with their care. We will discuss this with the family when they are available. KENIA RUBIN MD DR: MILES/antonia JOB#: [id number] / [id number]
[2020-06-23 19:42] VITALS: BP 173/73
[2020-06-23] MEDS: ZOLPIDEM 5 MG TABLET. PO PRN (20:09)
[2020-06-23] MEDS: traZODone 50 MG TABLET. PO SCH (20:09)
[2020-06-24] MEDS: LEVOTHYROXINE 88 MCG TABLET PO SCH (05:00)
--- NOTE | 2020-06-24 06:14 | NUR ---
PT slept most of night. PT compliant with medications, assessment and cares. PT tolerated COVID testing well.
[2020-06-24 08:00] VITALS: BP 178/75
[2020-06-24] MEDS: ASPIRIN CHEWABLE 81 MG TABLET. PO SCH (08:27)
[2020-06-24] MEDS: amLODIPine BESYLATE 10 MG TABLET PO SCH (08:27)
[2020-06-24] MEDS: buPROPion XL 300 MG TAB.ER.24H. PO SCH (08:27)
[2020-06-24] MEDS: ATORVASTATIN CALCIUM 20 MG TABLET PO SCH (08:28)
[2020-06-24] MEDS: SERTRALINE 25 MG TABLET. PO SCH (08:28)
[2020-06-24] MEDS: INSULIN LISPRO 300 UNITS/3 ML VIAL. SQ SCH ×2 (08:31→21:00)
[2020-06-24] MEDS: ONDANSETRON ODT 4 MG TAB.RAPDIS PO PRN ×2 (08:51→21:03)
--- NOTE | 2020-06-24 09:07 | NUR ---
PATIENT WAS CALM AND COOPERATIVE DURIND AM ASSESSMENT AND MEDS ADMINISTRATION, PATIENT STATED HER BODY IS ACHING BUT REFUSED TO HAVE A PAIN MEDICATION, STATED HER HEART AND BODY ACHES BECAUSE OF BEING HERE ON ISOLATION. WILL CONTINUE TO MONITOR.
--- NOTE | 2020-06-24 10:11 | NUR ---
THIS RN WALKED INTO PATIENTS ROOM WHEN PT WAS SITTING UP AND VOMITING INTO THE TRASH CAN, PT REQUESTED MEDICATION TO HELP WITH HER N/V. ZOFRAN GIVEN ORDERED. WILL CONTINUE TO MONITOR.
--- NOTE | 2020-06-24 12:12 | PN ---
DATE: 06/24/2020 ATTENDING PHYSICIAN: Dr. Rubin. SUBJECTIVE: No new complaints. She is sad that she cannot go home. She is totally asymptomatic. Her children do not want her there place for fear of spreading the COVID virus. She remains positive on the swab, but is totally asymptomatic. OBJECTIVE FINDINGS: VITAL SIGNS: Blood pressure today is 167/66, pulse is 64 and regular, temperature 97.7 degrees Fahrenheit, oxygen saturation 96% on 2 liters of nasal cannula. HEENT: Head is without trauma. Pupils are reactive. Sclerae are nonicteric. The oropharynx is clear. NECK: Supple, no bruits identified. LUNGS: Good breath sounds. CARDIOVASCULAR: Showed regular heart tones. No gallops. Peripheral pulses palpable and full. ABDOMEN: Soft, scaphoid, nontender, no organomegaly. Bowel sounds are hypoactive. EXTREMITIES: Show no cyanosis or edema. NEUROLOGIC: Focally intact. Speech is fluent. Her skin is warm and dry. ASSESSMENT: 1. A 74-year-old female with COVID positive swabs. She remains asymptomatic. 2. Type 2 diabetes, controlled. 3. Essential hypertension. 4. Chronic kidney disease stage 3. 5. Hyperlipidemia. 6. Short-term memory loss. PLAN: 1. Continue meds as ordered. 2. We are still working on placement with recheck swabs as indicated. She has remained positive on the last swab. KENIA RUBIN MD DR: MILES/antonia JOB#: [id number] / [id number]
[2020-06-24 19:10] VITALS: BP 156/78
[2020-06-24] MEDS: traZODone 50 MG TABLET. PO SCH (21:03)
[2020-06-24] MEDS: ZOLPIDEM 5 MG TABLET. PO PRN (21:03)
[2020-06-24] MEDS: ENOXAPARIN 40 MG/0.4 ML SYRINGE. SQ SCH (21:03)
[2020-06-25] MEDS: LEVOTHYROXINE 88 MCG TABLET PO SCH (05:24)
[2020-06-25] MEDS: ASPIRIN CHEWABLE 81 MG TABLET. PO SCH (07:34)
[2020-06-25] MEDS: SERTRALINE 25 MG TABLET. PO SCH (07:35)
[2020-06-25] MEDS: amLODIPine BESYLATE 10 MG TABLET PO SCH (07:35)
[2020-06-25] MEDS: buPROPion XL 300 MG TAB.ER.24H. PO SCH (07:35)
[2020-06-25] MEDS: ATORVASTATIN CALCIUM 20 MG TABLET PO SCH (07:36)
[2020-06-25 08:20] VITALS: BP 170/66
[2020-06-25] MEDS: INSULIN LISPRO 300 UNITS/3 ML VIAL. SQ SCH ×2 (09:00→21:00)
--- NOTE | 2020-06-25 14:34 | PN ---
DATE: 06/25/2020 ATTENDING PHYSICIAN: Dr. Rubin. SUBJECTIVE: The patient is fairly alert. She is really wanted to go home. She is hoping that her son will take her to live with her. I explained to her that since she is asymptomatic, we can release her at any time since she does not need to be in the hospital. The reason we kept her here is because her previous swabs have been positive and nursing facilities will not take her, but she can be dismissed to a private home. OBJECTIVE FINDINGS: VITAL SIGNS: Her blood pressure today is 156/78, pulse 73 and regular, temperature 97.8 degrees Fahrenheit, oxygen saturation 98% on 2 liters of nasal cannula. HEENT: Head is without trauma. Pupils are reactive. Sclerae are nonicteric. Oropharynx clear. NECK: Supple. LUNGS: Otherwise clear. CARDIOVASCULAR: Showed regular heart tones. No gallops. Peripheral pulses are palpable and full. ABDOMEN: Soft, no guarding. EXTREMITIES: Show no cyanosis or edema. NEUROLOGIC: Focally intact. Speech is fluent. SKIN: Warm and dry. ASSESSMENT: 1. A 74-year-old female with COVID positive swabs. She remains asymptomatic. 2. Type 2 diabetes mellitus. 3. Essential hypertension. 4. Chronic kidney disease stage 3. 5. Hyperlipidemia. 6. Short-term memory loss. PLAN: 1. Await recheck of swabs. 2. Discharge planning. 3. Continue meds as ordered. KENIA RUBIN MD DR: MILES/antonia JOB#: [id number] / [id number]
[2020-06-25] MEDS: ONDANSETRON ODT 4 MG TAB.RAPDIS PO PRN (15:50)
[2020-06-25 20:11] VITALS: BP 165/70
[2020-06-25] MEDS: traZODone 50 MG TABLET. PO SCH (21:28)
[2020-06-25] MEDS: ENOXAPARIN 40 MG/0.4 ML SYRINGE. SQ SCH (21:29)
--- NOTE | 2020-06-26 05:55 | NUR ---
Pt pleasant and cooperative this evening with a flat affect. Pt expresses she is "going home tomorrow." Pt denies pain. She is sleeping soundly this night. Will continue to monitor.
[2020-06-26] MEDS: LEVOTHYROXINE 88 MCG TABLET PO SCH (06:05)
[2020-06-26] MEDS: ATORVASTATIN CALCIUM 20 MG TABLET PO SCH (07:40)
[2020-06-26] MEDS: ASPIRIN CHEWABLE 81 MG TABLET. PO SCH (07:40)
[2020-06-26] MEDS: amLODIPine BESYLATE 10 MG TABLET PO SCH (07:40)
[2020-06-26] MEDS: SERTRALINE 25 MG TABLET. PO SCH (07:40)
[2020-06-26] MEDS: buPROPion XL 300 MG TAB.ER.24H. PO SCH (07:42)
[2020-06-26] MEDS: INSULIN LISPRO 300 UNITS/3 ML VIAL. SQ SCH ×2 (07:42→21:00)
[2020-06-26 08:16] VITALS: BP 156/73
--- NOTE | 2020-06-26 11:58 | PN ---
DATE: 06/26/2020 ATTENDING PHYSICIAN: Dr. Rubin. SUBJECTIVE: No new complaints. She is doing well. I did inform her that her swab on 06/24/2020 was negative. She has family members, they are power of ip technology transactions attorney. They want her at assisted living facility in [place], [place]. OBJECTIVE FINDINGS: VITAL SIGNS: Her blood pressure today is 156/73, pulse 61 and regular, temperature 98.5 degrees Fahrenheit, oxygen saturation 98% on 2 liters nasal cannula. HEENT: Head is without trauma. Pupils are reactive. Sclerae nonicteric. Oropharynx clear. NECK: Supple, no bruits. LUNGS: Clear with good breath sounds. CARDIOVASCULAR: Showed regular heart tones. ABDOMEN: Soft, no guarding. Normal bowel sounds. EXTREMITIES: Show no cyanosis or edema. NEUROLOGIC: Focally intact. Speech is fluent. SKIN: Warm and dry. ASSESSMENT: 1. A 74-year-old female with COVID positive swabs. She remains asymptomatic. 2. Type 2 diabetes. 3. Most recent swab was negative. 4. Hypertension. 5. Chronic kidney disease. 6. Hyperlipidemia. 7. Short-term memory loss. PLAN: 1. She will need consecutive negative swabs. 2. Discharge planning for facility in [place], [place] next week. KENIA RUBIN MD DR: MILES/antonia JOB#: [id number] / [id number]
[2020-06-26] MEDS: ONDANSETRON ODT 4 MG TAB.RAPDIS PO PRN (12:30)
[2020-06-26 20:30] VITALS: BP 168/77
[2020-06-26] MEDS: traZODone 50 MG TABLET. PO SCH (21:25)
[2020-06-26] MEDS: ACETAMINOPHEN 325 MG TABLET PO PRN (21:25)
[2020-06-26] MEDS: ENOXAPARIN 40 MG/0.4 ML SYRINGE. SQ SCH (21:26)
[2020-06-27] MEDS: LEVOTHYROXINE 88 MCG TABLET PO SCH (06:00)
[2020-06-27] MEDS: amLODIPine BESYLATE 10 MG TABLET PO SCH (07:36)
[2020-06-27] MEDS: ACETAMINOPHEN 325 MG TABLET PO PRN (07:36)
[2020-06-27] MEDS: SERTRALINE 25 MG TABLET. PO SCH (07:37)
[2020-06-27] MEDS: ASPIRIN CHEWABLE 81 MG TABLET. PO SCH (07:37)
[2020-06-27] MEDS: ATORVASTATIN CALCIUM 20 MG TABLET PO SCH (07:37)
[2020-06-27] MEDS: buPROPion XL 300 MG TAB.ER.24H. PO SCH (07:38)
[2020-06-27 08:00] VITALS: BP 163/80
[2020-06-27] MEDS: INSULIN LISPRO 300 UNITS/3 ML VIAL. SQ SCH ×2 (08:16→19:31)
--- NOTE | 2020-06-27 11:37 | PN ---
DATE: 06/27/2020 ATTENDING PHYSICIAN: Dr. Rubin. SUBJECTIVE: No new complaints. She is alert, doing well. She is anxious to leave. She is not remembering as I told her many times and her family, son and daughter did not want to take her home. They want her at assisted living facility in [place], [place]. OBJECTIVE FINDINGS: VITAL SIGNS: She is afebrile today. Blood pressure is 163/80 mmHg, pulse is 64 and regular, oxygen saturation 97% on 2 liters nasal cannula. HEENT: Head is without trauma. Pupils are reactive. Sclerae are nonicteric. The oropharynx is clear. NECK: Supple, no bruits identified. LUNGS: Good breath sounds. CARDIOVASCULAR: Showed regular heart tones. No gallops. ABDOMEN: Soft, no guarding. EXTREMITIES: Show no cyanosis or edema. NEUROLOGIC: Focally intact. Speech is fluent. SKIN: Warm and dry. ASSESSMENT: 1. A 74-year-old female with COVID positive swab. She remains asymptomatic. 2. Type 2 diabetes. 3. Her most recent swab 06/24/2020 was negative. 4. Hypertension. 5. Short-term memory loss. 6. Chronic kidney disease. PLAN: 1. We are awaiting 2 consecutive negative swabs. 2. Discharge planning for facility in [place], [place] next week. KENIA RUBIN MD DR: MILES/antonia JOB#: [id number] / [id number]
[2020-06-27 19:53] VITALS: BP 164/68
[2020-06-27] MEDS: ZOLPIDEM 5 MG TABLET. PO PRN (20:00)
[2020-06-27] MEDS: ONDANSETRON ODT 4 MG TAB.RAPDIS PO PRN (20:00)
[2020-06-27] MEDS: traZODone 50 MG TABLET. PO SCH (20:01)
[2020-06-27] MEDS: ENOXAPARIN 40 MG/0.4 ML SYRINGE. SQ SCH (20:01)
--- NOTE | 2020-06-27 21:49 | NUR ---
PT sitting in bed watching television at time of assessment. PT stated she was nauseous and given PRN antiemetic. PT is excited to possibly leave soon.
[2020-06-28] MEDS: LEVOTHYROXINE 88 MCG TABLET PO SCH (06:12)
[2020-06-28] MEDS: ASPIRIN CHEWABLE 81 MG TABLET. PO SCH (07:41)
[2020-06-28] MEDS: SERTRALINE 25 MG TABLET. PO SCH (07:41)
[2020-06-28] MEDS: ACETAMINOPHEN 325 MG TABLET PO PRN (07:41)
[2020-06-28] MEDS: ATORVASTATIN CALCIUM 20 MG TABLET PO SCH (07:42)
[2020-06-28] MEDS: INSULIN LISPRO 300 UNITS/3 ML VIAL. SQ SCH ×2 (07:42→20:11)
[2020-06-28] MEDS: buPROPion XL 300 MG TAB.ER.24H. PO SCH (07:42)
[2020-06-28] MEDS: amLODIPine BESYLATE 10 MG TABLET PO SCH (07:42)
[2020-06-28 07:46] VITALS: BP 169/68
--- NOTE | 2020-06-28 09:53 | NUR ---
ALOK received a call from pt son Mykel, wanting to check in to see if pt was correct in her reports of testing negative on her Covoid swab. ALOK explained that pt was negative on 2 swabs and could be discharged just as soon as things for placement could be arranged. Mykel, reports that he has been in contact with Debora at [facility] and would like an updated packet. ALOK will send that RITA this morning with hopes to get pt discharged within the next few days. Mykel reports that the facility does not transport but is not sure if he should come pick pt up. ALOK explained that if they did, they would have to wear a mask and take potential precautions. Pt does have Medicaid and ALOK can see about getting that set up, as long as the facility does not wish to have a set time for transport; as Medicaid will not guarantee a time just time frame (1-3 hours from the time transport request is placed). ALOK will continue to keep Mykel up to date.
--- NOTE | 2020-06-28 11:56 | PN ---
DATE: 05/28/2020 ATTENDING PHYSICIAN: Jesus. SUBJECTIVE: The patient is emotionally upset that she is unable to go home. She has lost her short-term memory. She still thinks she is going home to her family. The family, a son and daughter, who have power of emergency services dispatcher wants her to be in assisted living facility in [place], [place]. Fortunately, she has 2 negative COVID swabs consecutively now. She remains asymptomatic regarding the exposure. OBJECTIVE FINDINGS: VITAL SIGNS: Her blood pressure today is 170/68, pulse 61 and regular, temperature 98.1 degrees Fahrenheit, oxygen saturation 97% on 2 liters of supplemental oxygen by nasal cannula. HEENT: Head is without trauma. Pupils are reactive. Sclerae nonicteric. Oropharynx clear. NECK: Supple. LUNGS: Good breath sounds. CARDIOVASCULAR: Showed regular heart tones. ABDOMEN: Soft. EXTREMITIES: Without edema. NEUROLOGIC: Crying. Speech is fluent. No focal deficits. SKIN: Warm and dry. ASSESSMENT: 1. A 74-year-old female with positive COVID swab from [facility]. She remains asymptomatic. 2. Two consecutive negative swabs on record. 3. Type 2 diabetes, stable. 4. Hypertension. 5. Short-term memory loss. PLAN: 1. We are awaiting disposition at the facility. 2. We are awaiting employment evaluator/case manager to contact the family, then we can discharge her when a bed is available. KENIA RUBIN MD DR: MILES/antonia JOB#: [id number] / [id number]
[2020-06-28] MEDS: LORazepam 0.5 MG TABLET PO PRN (11:58)
[2020-06-28 15:15] VITALS: BP 112/65
[2020-06-28 19:33] VITALS: BP 163/80
[2020-06-28] MEDS: traZODone 50 MG TABLET. PO SCH (20:04)
[2020-06-28] MEDS: ZOLPIDEM 5 MG TABLET. PO PRN (20:04)
[2020-06-28] MEDS: ENOXAPARIN 40 MG/0.4 ML SYRINGE. SQ SCH (20:05)
[2020-06-29 00:51] LABS: BILIRUBIN,URINE NEG (NEG); CLARITY,URINE CLEAR; COLOR,URINE YELLOW; GLUCOSE,URINE NEG (NEG)
[2020-06-29 00:52] LABS: BACTERIA,URINE 0 /HPF (0-FEW); NITRITE,URINE NEG (NEG); RBC,URINE 0 /HPF (0-2); SQUAMOUS EPITHELIAL CELL,UR FEW /LPF; UROBILINOGEN,URINE 0.2 mg/dL (0.2 mg/dL); WBC,URINE RARE /HPF (0-4)
[2020-06-29] MEDS: LEVOTHYROXINE 88 MCG TABLET PO SCH (05:53)
[2020-06-29 07:28] VITALS: BP 178/70
[2020-06-29] MEDS: INSULIN LISPRO 300 UNITS/3 ML VIAL. SQ SCH ×2 (09:00→20:10)
[2020-06-29] MEDS: amLODIPine BESYLATE 10 MG TABLET PO SCH (09:25)
[2020-06-29] MEDS: SERTRALINE 25 MG TABLET. PO SCH (09:25)
[2020-06-29] MEDS: ASPIRIN CHEWABLE 81 MG TABLET. PO SCH (09:26)
[2020-06-29] MEDS: ATORVASTATIN CALCIUM 20 MG TABLET PO SCH (09:26)
[2020-06-29] MEDS: buPROPion XL 300 MG TAB.ER.24H. PO SCH (09:28)
--- NOTE | 2020-06-29 10:41 | PN ---
DATE: 06/29/2020 ATTENDING PHYSICIAN: Dr. Rubin. SUBJECTIVE: No new complaints. She is still upset that she has not been discharged yet. Luckily, she has had 2 consecutive negative COVID swabs. She has been moved out of isolation to a regular floor bed. OBJECTIVE FINDINGS: VITAL SIGNS: Her blood pressure today is 163/80 mmHg, pulse 66 and regular, temperature 98.7 degrees Fahrenheit, oxygen saturation 94% on 2 liters nasal cannula. HEENT: Head is without trauma. Pupils are reactive. Sclerae nonicteric. Oropharynx clear. I examined her bottom lip. There is a slight wound, but it does not appear infected or draining. NECK: Supple. LUNGS: Clear. CARDIOVASCULAR: Showed regular heart tones. ABDOMEN: Soft. EXTREMITIES: Without cyanosis or edema. NEUROLOGIC: Speech is fluent. Affect remains depressed. SKIN: Warm and dry. ASSESSMENT: 1. A 74-year-old female with positive COVID-19 swabs from the [facility]. Her last 2 swabs have been negative. She remains asymptomatic. 2. Type 2 diabetes. 3. Hypertension. 4. Short-term memory loss. PLAN: 1. Meds as ordered. 2. We are awaiting placement. KENIA RUBIN MD DR: MILES/antonia JOB#: [id number] / [id number]
--- NOTE | 2020-06-29 15:20 | NUR ---
ALOK contacted pt son, who informed SW that she was literally just approved for the HCBS waiver this afternoon. He has attempted to contact pt placement to see if they would be able to take pt tomorrow. ALOK and Mykel discussed transport and who would be best suited. ALOK explained that if the family chose to do so, they would definitely need to wear a mask and pt would be provided one as well. Mykel is just concerned about whether or not they would have to quarantine for 2 weeks, which he feels he would not be able to do with work and worries bout his children. ALOK also encouraged Mykel to talk about it with the facility. Although the facility cannot transport, they may prefer a company to do the transport anyway. Both parties will follow-up with one another tomorrow morning.
[2020-06-29 19:26] VITALS: BP 179/79
[2020-06-29] MEDS: traZODone 50 MG TABLET. PO SCH (20:14)
[2020-06-29] MEDS: ENOXAPARIN 40 MG/0.4 ML SYRINGE. SQ SCH (20:15)
[2020-06-30] VITALS: BP 178/66
[2020-06-30] MEDS: LORazepam 0.5 MG TABLET PO PRN (00:13)
--- NOTE | 2020-06-30 05:04 | NUR ---
Pt laying in bed upon assessment. Pt reports that she is anxious to go home. Pt asks frequent to call her son, reminded pt that it is late and he is resting for the night. Pt compliant with medications and assessment. Bed alarm in place for pt safety.
[2020-06-30] MEDS: LEVOTHYROXINE 88 MCG TABLET PO SCH (05:52)
[2020-06-30] MEDS ORDERED: cloNIDine TTS-3 1 PATCH PATCH TD ONE (06:00)
[2020-06-30 06:03] VITALS: BP 192/80
[2020-06-30 06:33] VITALS: BP 158/64
[2020-06-30] MEDS: ASPIRIN CHEWABLE 81 MG TABLET. PO SCH (08:56)
[2020-06-30] MEDS: amLODIPine BESYLATE 10 MG TABLET PO SCH (08:56)
[2020-06-30] MEDS: buPROPion XL 300 MG TAB.ER.24H. PO SCH (08:56)
[2020-06-30] MEDS: SERTRALINE 25 MG TABLET. PO SCH (08:57)
[2020-06-30] MEDS: ACETAMINOPHEN 325 MG TABLET PO PRN (08:57)
[2020-06-30] MEDS: ATORVASTATIN CALCIUM 20 MG TABLET PO SCH (08:57)
[2020-06-30] MEDS: INSULIN LISPRO 300 UNITS/3 ML VIAL. SQ SCH (08:59)
--- NOTE | 2020-06-30 10:40 | NUR ---
ALOK contacted pt son this morning to see if he was able to get ahold of Debora yet to get pt admitted later today. He reports that he has left 3 messages for Debora and will continue to try and get ahold of her. Pt son reports that he will be the one to pick her up, so once he knows that she can come in today. Mykel did ask if ALOK could contact Mandy Dodge re: her request to get medical records. Mandy's number is [phone].
[2020-06-30 11:00] VITALS: BP 161/70
--- NOTE | 2020-06-30 11:24 | NUR ---
ALOK received a call from Debora, cognos bi administrator with [facility]. She reports that she cannot take pt today but it would more than likely be tomorrow at the soonest. She understands that with pt being on the Medical floor, she needs to be discharged as she is stable. However, for them to complete the admission, they need the BS letter and the plan of care that is established by the BS cash manager, the nurse will need to be present and the process typically takes 8 hours to complete. Debora would like to see if pt could stay and then pt son can pick them up. ALOK will check and get back to Debora.
--- NOTE | 2020-06-30 11:40 | NUR ---
ALOK received a call from Debora who reneged on not taking pt today and reports that her nurse agreed to do the discharge today. So she will contact Mykel, pt son to give the green light. Debora has asked for ALOK to send the updated med list, DNR if applicable and DPOA paperwork.
--- NOTE | 2020-06-30 11:49 | NUR ---
[facility] Social Work Discharge Planning Form Patient Name VIKAS ROSALES Admit Date: 03 June 2020 DISCHARGE PLAN Discharge Destination: [facility] Care Assessment: N/A Level II Assessment: N/A Transportation: Pt daughter to pick pt up this afternoon, time TBD Special Instructions/Notes: SW faxed over most recent medication list, DPOA and DNR papers to the facility. Her CM, Mandy with Medicaid, has asked for pt med list, dx code, H&P and her behavioral plan for placement. DISCHARGE TO FACILITY Facility: [facility] Address: [address] [place] [address], [place] [address] Contact Name: Debora Cox, Investigator Operator Contact Name: Ask for the nurse completing pt admission for report PCP: Will see primary care within the facility
--- NOTE | 2020-06-30 15:24 | NUR ---
NSG NOTE; DISCHARGE PACKET FAXED TO [facility] IN [place] RX X2 AND PAPER COPY OF DPOA AND MED REC SENT WITH PT DISCHARGED AT 1515 TO [facility] VIA W/C ACCOMP BY FAMILY MEMBERS WHO PICKED HER UP
--- NOTE | 2020-06-30 15:31 | DS ---
DATE OF DISCHARGE: 06/30/2020 HOSPITAL COURSE: The patient is a 74-year-old female patient, she was transferred initially from [facility] as she was tested positive for COVID-19, although she was asymptomatic. She was in quarantine, [address] [place], since she was transferred from [facility] on 06/03/2020. She has had 2 consecutive negative COVID-19 tests and she was discharged to an assisted living in ____. PHYSICAL EXAMINATION: GENERAL: When I saw her today, she looked well and was clearly in no apparent respiratory distress. No pallor, jaundice, cyanosis or thyromegaly. No jugular venous distention. No lower limb edema. VITAL SIGNS: Her heart rate was 61, blood pressure was 161/70, temperature was 98, respiratory rate was 18 and oxygen saturation was 90% on room air. HEAD, EYES, EARS, NOSE AND THROAT: Showed normocephalic, atraumatic. NECK: Supple. HEART: Normal first and second heart sounds. No gallop or murmur. CHEST: Clear to auscultation. No crepitation or rhonchi. ABDOMEN: Distended, soft, nontender. NEUROLOGIC: She is awake, alert, responding appropriately. All cranial nerves intact. EXTREMITIES: She moves extremities without difficulty. She ambulates with a walker. LABORATORY DATA: Her most recent lab work showed her blood sugar has been well controlled. Her most recent chemistry showed a serum sodium 138, potassium 3.5, chloride 100, bicarbonate 33, anion gap of 5, BUN 22, creatinine 1.6, estimated GFR was 31 mL per minute. Her glucose was 95, calcium was 9. Total bilirubin, AST, ALT, alkaline phosphatase were normal. Total protein was 6.2, albumin 3.1. Her white cell count was 8100, hemoglobin 12, hematocrit 35, MCV 88 and platelet count 293,000. Her urinalysis essentially unremarkable. She has 2 consecutive tests for coronavirus by PCR that were negative on 06/24/2020 and 06/26/2020. DISCHARGE MEDICATIONS: She was discharged to assisted living to continue on acetaminophen 650 mg every 6 hours, amlodipine besylate 10 mg once a day, aspirin 81 mg once a day, atorvastatin calcium 40 mg at bedtime, Wellbutrin-XL 300 mg once a day. She is on NovoLog insulin, advancing sliding scale before meals, levothyroxine sodium 88 mcg once a day, lorazepam 0.5 mg every 8 hours as needed for anxiety, Mylanta 15 mL after meals and as needed, magnesium hydroxide for milk of magnesia 30 mL p.o. daily p.r.n. for constipation, BenGay greaseless cream applied topically 4 times a day, sertraline for Zoloft 75 mg once a day, trazodone 50 mg at bedtime, trazodone 50 mg as needed, Ambien 5 mg at bedtime. FINAL DISCHARGE DIAGNOSES: 1. Asymptomatic COVID-19 infection. 2. Type 2 diabetes mellitus. 3. Hypertension. 4. Hypothyroidism. 5. Dementia. 6. Anxiety and depression. BOOM BILL MD DR: ELIAZAR/antonia JOB#: [id number] / [id number]
--- NOTE | 2020-06-30 17:03 | NUR ---
NSG NOTE; REPORT CALLED TO CHIP FAROOQ AT [facility] AT 1700
[2020-07-07] MEDS ORDERED: cloNIDine TTS-3 1 PATCH PATCH TD SCH (09:00)
== END 2020-06-30 15:15 | DRG 179 ==
LOC: 1 SOUTH 13:21
PROVIDERS: ADMIT Internal Medicine; ATTEND Internal Medicine
DX: U07.1 COVID-19 (principal); E03.9 Hypothyroidism, unspecified; E11.22 Type 2 diabetes mellitus with diabetic chronic kidney disease; E78.5 Hyperlipidemia, unspecified; F03.90 Unspecified dementia, unspecified severity, without behavioral disturbance, psychotic disturbance, mood disturbance, and anxiety; F41.9 Anxiety disorder, unspecified; F43.21 Adjustment disorder with depressed mood; I12.9 Hypertensive chronic kidney disease with stage 1 through stage 4 chronic kidney disease, or unspecified chronic kidney disease; N18.3 Chronic kidney disease, stage 3 (moderate); Z90.710 Acquired absence of both cervix and uterus
CPT/HCPCS: 36415; 80053; 81001; 82947; 85025; 85027; 85379; 86140; J1650; J1815; Q0162; 97110; 97116; 97530; 97535; U0003-CS